=== PATIENT | female | born 1950 | race Caucasian/White ===

== ENCOUNTER 2017-06-19 11:37 | Inpatient (IN) | payer MEDICARE ==
[2017-06-19] MEDS ORDERED: IPRATROPIUM-ALBUTEROL 3 ML NEB INHALATION STA (11:59)
[2017-06-19 12:25] LABS: Basophils % (A) 1 %; Eosinophils # (A) 0.1 k/uL (0-0.7); Eosinophils % (A) 1 %; HGB 19.1 gm/dL (11.4-16.0); Lymphocytes # (A) 1.9 k/uL (1.0-4.8); Lymphocytes % (A) 25 %; MCH 30.7 pg (25.0-35.0); MCHC 33.1 g/dL (31.0-37.0); MCV 92.8 fL (80.0-100.0); Mean Platelet Volume 7.2; Monocytes # (A) 0.6 k/uL (0-1.0); Monocytes % (A) 8 %; Neutrophils # (A) 4.8 k/uL (1.3-7.7); Neutrophils % (A) 64 %; Platelet Count 227 k/uL (150-450); RBC 6.21 m/uL (3.80-5.40); RDW 14.2 % (11.5-15.5); WBC 7.5 k/uL (3.8-10.6)
[2017-06-19 12:29] LABS: HCT 57.6 % (34.0-46.0)
[2017-06-19 12:33] LABS: ALT 188 U/L (9-52); AST 133 U/L (14-36); Albumin 4.2 g/dL (3.5-5.0); Alkaline Phosphatase 99 U/L (38-126); Anion Gap 16 mmol/L; Blood Urea Nitrogen 18 mg/dL (7-17); Calcium 10.2 mg/dL (8.4-10.2); Carbon Dioxide 22 mmol/L (22-30); Chloride 108 mmol/L (98-107); Glucose 95 mg/dL (74-99); Magnesium 2.1 mg/dL (1.6-2.3); Potassium 4.1 mmol/L (3.5-5.1); Sodium 146 mmol/L (137-145); Total Protein 7.3 g/dL (6.3-8.2)
--- NOTE | 2017-06-19 12:33 | ED ---
General Adult HPI - General Chief complaint: Shortness of Breath Stated complaint: FAIZA Time Seen by Provider: 06/19/17 11:45 Source: patient, RN notes reviewed Mode of arrival: wheelchair Limitations: no limitations - History of Present Illness Initial comments: This is a 66-year-old female who presents emergency Department complaining of shortness of breath. Patient states she's been having an issue or shortness of breath since March. She was treated for bronchitis back then. Patient states a week ago she started feeling considerably more short of breath so she went to the emergency department and is followed up with her physician the medicines including an antibiotic and steroid have not seemed to help her at all. Patient states she continues to be short of breath he continues to cough. Patient denies any chest pain palpitations or chest heaviness. Patient denies any fevers or chills. Patient denies abdominal pain patient denies headache patient denies numbness weakness. Patient denies lightheadedness dizziness or near syncopal episode. Patient denies any calf pain or leg swelling - Related Data Home Medications Medication Instructions Recorded Confirmed Azithromycin [Zithromax Z-pack] See Taper PO DIRECTED 06/19/17 06/19/17 Losartan/Hydrochlorothiazide 1 tab PO DAILY 06/19/17 06/19/17 [Hyzaar 50-12.5 Tablet] predniSONE 50 mg PO DAILY 06/19/17 06/19/17 Allergies Allergy/AdvReac Type Severity Reaction Status Date / Time montelukast [From Singulair] Allergy Diarrhea Verified 06/19/17 12:08 acetaminophen [From Tylenol] AdvReac Abdominal Verified 06/19/17 12:08 Pain amoxicillin AdvReac Unknown Verified 06/19/17 12:08 Review of Systems ROS Statement: Those systems with pertinent positive or pertinent negative responses have been documented in the HPI. ROS Other: All systems not noted in ROS Statement are negative. Past Medical History Past Medical History: Hypertension Additional Past Medical History / Comment(s): bronchitis History of Any Multi-Drug Resistant Organisms: None Reported Past Surgical History: Joint Replacement Additional Past Surgical History / Comment(s): 4 hip replacements brain anerysm Past Psychological History: No Psychological Hx Reported Smoking Status: Never smoker Past Alcohol Use History: None Reported Past Drug Use History: None Reported General Exam - General Exam Comments Initial Comments: GENERAL: Patient is well-developed and well-nourished. Patient is nontoxic and well- hydrated and is in mild distress. ENT: Neck is soft and supple. No significant lymphadenopathy is noted. Oropharynx is clear. Moist mucous membranes. Neck has full range of motion without eliciting any pain. EYES: The sclera were anicteric and conjunctiva were pink and moist. Extraocular movements were intact and pupils were equal round and reactive to light. Eyelids were unremarkable. PULMONARY: Patient has crackles in the right base. CARDIOVASCULAR: There is a regular rate and rhythm without any murmurs gallops or rubs. ABDOMEN: Soft and nontender with normal bowel sounds. No palpable organomegaly was noted. There is no palpable pulsatile mass. SKIN: Skin is clear with no lesions or rashes and otherwise unremarkable. NEUROLOGIC: Patient is alert and oriented x3. Cranial nerves II through XII are grossly intact. Motor and sensory are also intact. Normal speech, volume and content. Symmetrical smile. MUSCULOSKELETAL: Normal extremities with adequate strength and full range of motion. No lower extremity swelling or edema. No calf tenderness. LYMPHATICS: No significant lymphadenopathy is noted PSYCHIATRIC: Normal psychiatric evaluation. Normal interpersonal interactions appears functionally intact in deals appropriately with others. No signs of depression. No signs of anxiety. Limitations: no limitations Course Vital Signs 06/19/17 06/19/17 06/19/17 11:44 12:33 12:42 Temperature 97.5 F L Pulse Rate 102 H 109 H 89 Respiratory 18 Rate Blood Pressure 176/82 O2 Sat by Pulse 97 Oximetry 06/19/17 12:58 Temperature Pulse Rate 95 Respiratory 18 Rate Blood Pressure 175/87 O2 Sat by Pulse 97 Oximetry Medical Decision Making - Medical Decision Making EKG shows sinus tachycardia at 102 bpm OK interval 246 QRS is 84 QT interval 336 QTC is 437. Patient's EKG shows some ST segment depression in leads 1 to aVL as well as precordial leads V5 and V6. Those leads also has T-wave inversions Patient's CT of the chest shows congestive heart failure. Patient got Lasix Nitropaste in the emergency department. I spoke with Dr. Marianne Beranl agreed to admit the patient admitted the patient wrote admitting orders and consult cardiology. I continued Lasix Nitropaste on the floor. - Lab Data Result diagrams: 06/19/17 12:10 06/19/17 12:10 Lab Results 06/19/17 06/19/17 06/19/17 Range/Units 12:10 12:10 12:10 WBC 7.5 (3.8-10.6) k/uL RBC 6.21 H (3.80-5.40) m/uL Hgb 19.1 H (11.4-16.0) gm/dL Hct 57.6 H (34.0-46.0) % MCV 92.8 (80.0-100.0) fL MCH 30.7 (25.0-35.0) pg MCHC 33.1 (31.0-37.0) g/dL RDW 14.2 (11.5-15.5) % Plt Count 227 (150-450) k/uL Neutrophils % 64 % Lymphocytes % 25 % Monocytes % 8 % Eosinophils % 1 % Basophils % 1 % Neutrophils # 4.8 (1.3-7.7) k/uL Lymphocytes # 1.9 (1.0-4.8) k/uL Monocytes # 0.6 (0-1.0) k/uL Eosinophils # 0.1 (0-0.7) k/uL Basophils # 0.0 (0-0.2) k/uL PT (9.0-12.0) sec INR (<1.2) APTT (22.0-30.0) sec D-Dimer (<0.60) mg/L FEU Sodium 146 H (137-145) mmol/L Potassium 4.1 (3.5-5.1) mmol/L Chloride 108 H (98-107) mmol/L Carbon Dioxide 22 (22-30) mmol/L Anion Gap 16 mmol/L BUN 18 H (7-17) mg/dL Creatinine 0.62 (0.52-1.04) mg/dL Est GFR (CKD-EPI)AfAm >90 (>60 ml/min/1.73 sqM) Est GFR (CKD-EPI)NonAf >90 (>60 ml/min/1.73 sqM) Glucose 95 (74-99) mg/dL Calcium 10.2 (8.4-10.2) mg/dL Magnesium 2.1 (1.6-2.3) mg/dL Total Bilirubin 1.0 (0.2-1.3) mg/dL AST 133 H (14-36) U/L ALT 188 H (9-52) U/L Alkaline Phosphatase 99 (38-126) U/L Total Creatine Kinase 30 (30-135) U/L CK-MB (CK-2) 1.3 (0.0-2.4) ng/mL CK-MB (CK-2) Rel Index 4.3 Troponin I 0.015 (0.000-0.034) ng/mL NT-Pro-B Natriuret Pep pg/mL Total Protein 7.3 (6.3-8.2) g/dL Albumin 4.2 (3.5-5.0) g/dL 06/19/17 06/19/17 Range/Units 12:10 12:55 WBC (3.8-10.6) k/uL RBC (3.80-5.40) m/uL Hgb (11.4-16.0) gm/dL Hct (34.0-46.0) % MCV (80.0-100.0) fL MCH (25.0-35.0) pg MCHC (31.0-37.0) g/dL RDW (11.5-15.5) % Plt Count (150-450) k/uL Neutrophils % % Lymphocytes % % Monocytes % % Eosinophils % % Basophils % % Neutrophils # (1.3-7.7) k/uL Lymphocytes # (1.0-4.8) k/uL Monocytes # (0-1.0) k/uL Eosinophils # (0-0.7) k/uL Basophils # (0-0.2) k/uL PT 11.5 (9.0-12.0) sec INR 1.2 H (<1.2) APTT 22.0 (22.0-30.0) sec D-Dimer 1.20 H (<0.60) mg/L FEU Sodium (137-145) mmol/L Potassium (3.5-5.1) mmol/L Chloride (98-107) mmol/L Carbon Dioxide (22-30) mmol/L Anion Gap mmol/L BUN (7-17) mg/dL Creatinine (0.52-1.04) mg/dL Est GFR (CKD-EPI)AfAm (>60 ml/min/1.73 sqM) Est GFR (CKD-EPI)NonAf (>60 ml/min/1.73 sqM) Glucose (74-99) mg/dL Calcium (8.4-10.2) mg/dL Magnesium (1.6-2.3) mg/dL Total Bilirubin (0.2-1.3) mg/dL AST (14-36) U/L ALT (9-52) U/L Alkaline Phosphatase (38-126) U/L Total Creatine Kinase (30-135) U/L CK-MB (CK-2) (0.0-2.4) ng/mL CK-MB (CK-2) Rel Index Troponin I (0.000-0.034) ng/mL NT-Pro-B Natriuret Pep 4910 pg/mL Total Protein (6.3-8.2) g/dL Albumin (3.5-5.0) g/dL Critical Care Time Critical Care Time: Yes Total Critical Care Time: 35 Disposition Clinical Impression: Acute pulmonary edema Disposition: ADMITTED IP TO THIS HOSP Referrals: Compa Keita MD [Primary Care Provider] - 1-2 days Time of Disposition: 14:52
[2017-06-19 12:56] LABS: Troponin I 0.015 ng/mL (0.000-0.034)
--- NOTE | 2017-06-19 13:05 | XR ---
EXAMINATION TYPE: XR chest 2V DATE OF EXAM: 06/19/2017 COMPARISON: NONE TECHNIQUE: PA and lateral views submitted. HISTORY: Difficulty breathing FINDINGS: The lungs are clear and there is no pneumothorax, pleural effusion, or focal pneumonia. There is a coarsened interstitium with cardiomegaly and atherosclerotic change aorta. Sclerotic density overlyin g the proximal diaphysis humerus. Diffuse osteopenia. Hypertrophic and degenerative change of the spi ne noted. IMPRESSION: 1. Cardia megaly with diffuse interstitial process. Correlate for chronic interstitial pulmonary fibr osis. Superimposed interstitial pneumonitis or venous congestion in the differential diagnosis..
[2017-06-19 13:07] LABS: Creatine Kinase MB 1.3 ng/mL (0.0-2.4)
[2017-06-19 13:26] LABS: D-Dimer 1.2 mg/L FEU (<0.60); INR 1.2 (<1.2); Prothrombin Time 11.5 sec (9.0-12.0)
[2017-06-19] MEDS ORDERED: RX INFO: IV CONTRAST WAS GIVEN 1 EACH MISC MISCELLANE PRN (13:38)
--- NOTE | 2017-06-19 14:20 | CT ---
EXAMINATION TYPE: CT chest angio for PE DATE OF EXAM: 06/19/2017 COMPARISON: Chest x-ray same date HISTORY: Patient complains of difficulty breathing. CT DLP: 410.6 mGycm Automated exposure control for dose reduction was used. CONTRAST: CT Chest for pulmonary embolism performed with with IV Contrast, patient injected with 100 mL of Isov ue 370. FINDINGS: There is artifact due to patient's high density intravenous contrast injection obscuring th e upper mediastinum. LUNGS: Groundglass opacity is present in the perihilar locations. There are thickened septal bands, i nterlobular septal lines present MEDIASTINUM: There is satisfactory enhancement of the pulmonary artery but not small segmental branch es, there is no CT evidence for pulmonary embolism. There are no greater than 1 cm hilar or mediasti nal lymph nodes. No pericardial effusion is seen. AORTA: Ascending aorta measures approximately 4.8 cm, proximal descending aorta 3.3 cm. Pulmonary ar ziggy is dilated at 3.7 cm. OTHER: The heart is enlarged. Left ventricle appears enlarged as compared to the right, left atrium enlarged as compared to the right. Reflux of contrast noted into the inferior vena cava and hepatic v eins. There is a small hiatal hernia. IMPRESSION: Findings likely represent congestive heart failure. Poor ejection fraction likely etiology due to poo r opacification of segmental branches of the pulmonary arteries. Consider pulmonary artery hypertensi on. Asymmetric appearance of the heart, consider echocardiography, cardiology consult
[2017-06-19] MEDS ORDERED: FUROSEMIDE 10 MG/ML 2 ML VIAL IV STA (14:46)
[2017-06-19] MEDS: NITROGLYCERIN OINT 1 INCH/GM PACKET TOPICAL SCH ×2 (18:19→22:33)
[2017-06-19] MEDS: FUROSEMIDE 10 MG/ML 4 ML VIAL IV SCH (20:38)
[2017-06-20 06:40] LABS: Basophils # (A) 0.1 k/uL (0-0.2); Basophils % (A) 1 %; Eosinophils # (A) 0.1 k/uL (0-0.7); Eosinophils % (A) 2 %; HGB 18.6 gm/dL (11.4-16.0); Lymphocytes # (A) 1.6 k/uL (1.0-4.8); Lymphocytes % (A) 27 %; MCH 29.7 pg (25.0-35.0); MCHC 31.9 g/dL (31.0-37.0); Mean Platelet Volume 7.1; Monocytes # (A) 0.5 k/uL (0-1.0); Monocytes % (A) 9 %; Neutrophils # (A) 3.4 k/uL (1.3-7.7); Neutrophils % (A) 59 %; Platelet Count 215 k/uL (150-450); RBC 6.27 m/uL (3.80-5.40); RDW 14.1 % (11.5-15.5); WBC 5.8 k/uL (3.8-10.6)
[2017-06-20 06:43] LABS: ALT 132 U/L (9-52); AST 55 U/L (14-36); Albumin 3.7 g/dL (3.5-5.0); Alkaline Phosphatase 80 U/L (38-126); Anion Gap 12 mmol/L; Blood Urea Nitrogen 22 mg/dL (7-17); Calcium 9.3 mg/dL (8.4-10.2); Carbon Dioxide 29 mmol/L (22-30); Chloride 103 mmol/L (98-107); Glucose 81 mg/dL (74-99); Potassium 3.6 mmol/L (3.5-5.1); Sodium 144 mmol/L (137-145); Total Bilirubin 0.7 mg/dL (0.2-1.3); Total Protein 6.4 g/dL (6.3-8.2)
[2017-06-20 06:45] LABS: HCT 58.3 % (34.0-46.0)
[2017-06-20 06:55] VITALS: RESP 18
[2017-06-20] MEDS: FUROSEMIDE 10 MG/ML 4 ML VIAL IV SCH ×2 (08:12→20:21)
[2017-06-20] MEDS: LOSARTAN-HCTZ 50-12.5 MG 1 EACH TAB PO SCH (08:12)
[2017-06-20] MEDS: NITROGLYCERIN OINT 1 INCH/GM PACKET TOPICAL SCH ×3 (08:12→16:09)
[2017-06-20] MEDS ORDERED: IBUPROFEN 200 MG TAB PO PRN (10:19)
[2017-06-20 11:05] VITALS: BMI 37.0
--- NOTE | 2017-06-20 14:17 | P.HPIM ---
History of Present Illness H&P Date: 06/20/17 Chief Complaint: Shortness of breath This is a 66-year-old female patient of Dr. 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 Patient gives history that she has had trouble with breathing since March when she was treated for bronchitis. Recently shortness of breath worsened and the last 2 days were really rough. She denies ever having history of COPD, asthma and has not seen a lung doctor before. She denies having any chest pain sweats, fever or chills. She does visit her son 2-3 times a week and use a wood stove. She has never been diagnosed with heart failure in the past. Patient presents to [facility] [place] and was found to be afebrile, normal white count, hgb 19.1, creatinine 0.62. Troponin 0.015, D dimer 1.2, pro-BNP 4910. CTA of the chest revealed heart failure. Poor ejection fraction likely etiology due to poor opacification of segmental branches of the pulmonary arteries. Consider pulmonary artery hypertension. Asymmetric appearance of the heart. Chest x-ray reveals cardiomegaly with diffuse interstitial process. Correlate for interstitial pulmonary fibrosis. Superimposed interstitial pneumonitis or venous congestion in the differential. Patient was given lasix 20 mg IV, duoneb treatment and continued on IV Lasix and cardiology consult requested echocardiogram ordered. Review of Systems All systems: negative Constitutional: Reports fatigue, Reports weight gain, Denies chills, Denies fever Eyes: denies blurred vision, denies pain Ears, nose, mouth and throat: Denies headache, Denies sore throat Cardiovascular: Reports decreased exercise tolerance, Reports dyspnea on exertion, Reports leg edema, Denies chest pain, Denies edema, Denies lightheadedness, Denies shortness of breath, Denies syncope Respiratory: Reports cough, Reports dyspnea, Denies cough with sputum, Denies excessive sputum, Denies hemoptysis, Denies home oxygen Gastrointestinal: Denies abdominal pain, Denies diarrhea, Denies nausea, Denies vomiting Genitourinary: Denies dysuria, Denies hematuria Musculoskeletal: Denies myalgias Integumentary: Denies pruritus, Denies rash Neurological: Denies numbness, Denies weakness Psychiatric: Denies anxiety, Denies depression Endocrine: Denies fatigue, Denies weight change Past Medical History Past Medical History: Hypertension Additional Past Medical History / Comment(s): 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 No illicit drug use. No alcohol use. Past Drug Use History: None Reported - Past Family History Father Additional Family Medical History / Comment(s): Father healthy with no major medical problems. Mother Additional Family Medical History / Comment(s): Mother had cancer in 4 sites unknown primary. Brother(s) Additional Family Medical History / Comment(s): Patient's 1 brother diagnosed with colon cancer at age 15. One brother after having her bowel surgery due to a blood clot. Patient has one son with genetic mutations for familial polycythemia. Medications and Allergies Home Medications Medication Instructions Recorded Confirmed Type Azithromycin [Zithromax Z-pack] See Taper PO DIRECTED 06/19/17 06/19/17 History Losartan/Hydrochlorothiazide 1 tab PO DAILY 06/19/17 06/19/17 History [Hyzaar 50-12.5 Tablet] predniSONE 50 mg PO DAILY 06/19/17 06/19/17 History Allergies Allergy/AdvReac Type Severity Reaction Status Date / Time montelukast [From Singulair] Allergy Diarrhea Verified 06/19/17 12:08 acetaminophen [From Tylenol] AdvReac Abdominal Verified 06/19/17 12:08 Pain amoxicillin AdvReac Unknown Verified 06/19/17 12:08 Physical Exam Vitals: Vital Signs Temp Pulse Pulse Resp BP BP Pulse Ox 06/20/17 07:40 97.6 F 79 18 137/85 97 06/20/17 04:25 97.8 F 77 18 144/71 95 06/20/17 04:15 88 17 06/20/17 00:00 97.2 F L 88 17 161/81 95 06/19/17 20:00 97.9 F 84 18 140/69 99 06/19/17 16:10 98.7 F 99 18 163/87 97 06/19/17 15:00 97.7 F 83 18 156/85 99 06/19/17 12:58 95 18 175/87 97 06/19/17 12:42 89 06/19/17 12:33 109 H 06/19/17 11:44 97.5 F L 102 H 18 176/82 97 Intake and Output 06/19/17 06/20/17 06/20/17 22:59 06:59 14:59 Intake Total 240 360 Output Total 1700 Balance 240 -1700 360 Intake: Oral 240 360 Output: Urine 1700 Other: Voiding Method Toilet Toilet Weight 81.647 kg 80.3 kg Gen: This is a 66-year-old obese female. She is sitting up in a chair at the bedside and appears to be comfortable. HEENT: Head is atraumatic, normocephalic. Pupils equal, round. Sclerae is anicteric. NECK: Supple. No JVD. No lymphadenopathy. No thyromegaly. LUNGS: Crackles in the bases and diminished No intercostal retractions. HEART: Regular rate and rhythm. Systolic murmur. ABDOMEN: Soft. Bowel sounds are present. No masses. No tenderness. EXTREMITIES: 1+ pedal edema. No calf tenderness. Dorsalis pedis +2. NEUROLOGICAL: Patient is awake, alert and oriented x3. Cranial nerves 2 through 12 are grossly intact. Results CBC & Chem 7: 06/20/17 05:46 06/21/17 06:23 Labs: Abnormal Lab Results - Last 24 Hours (Table) 06/19/17 06/19/17 06/19/17 Range/Units 12:10 12:10 12:55 RBC 6.21 H (3.80-5.40) m/uL Hgb 19.1 H (11.4-16.0) gm/dL Hct 57.6 H (34.0-46.0) % INR 1.2 H (<1.2) D-Dimer 1.20 H (<0.60) mg/L FEU Sodium 146 H (137-145) mmol/L Chloride 108 H (98-107) mmol/L BUN 18 H (7-17) mg/dL AST 133 H (14-36) U/L ALT 188 H (9-52) U/L 06/20/17 06/20/17 Range/Units 05:46 05:46 RBC 6.27 H (3.80-5.40) m/uL Hgb 18.6 H (11.4-16.0) gm/dL Hct 58.3 H (34.0-46.0) % INR (<1.2) D-Dimer (<0.60) mg/L FEU Sodium (137-145) mmol/L Chloride (98-107) mmol/L BUN 22 H (7-17) mg/dL AST 55 H (14-36) U/L ALT 132 H (9-52) U/L Thrombosis Risk Factor Assmnt - DVT/VTE Prophylaxis DVT/VTE Prophylaxis: Pharmacologic Prophylaxis ordered Assessment and Plan Plan: 1. Acute pulmonary edema with most likely underlying acute diastolic heart failure. Patient denies any history of coronary artery disease. Echocardiogram has been ordered. Cardiology consult. Patient is currently on Lasix 40 mg IV every 12 hours. Daily weights and I&O's. 2. Hypertension. Continue losartan hydrochlorothiazide 1 daily. 3. Recent treatment for bronchitis on Z-Steve and prednisone taper. 4. 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 5. DVT prophylaxis. Lovenox. 6. Gastrointestinal prophylaxis. Pepcid. Patient will be admitted to the hospital for a minimum of 2 night stay. Discharge plan: Most likely return home Impression and plan of care have been directed as dictated by the signing physician. Anna Marie Jernigan nurse practitioner acting as scribe for signing physician.
--- NOTE | 2017-06-20 15:25 | P.CRDCN ---
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 She presents to the hospital with symptoms of significantly worsening shortness of breath, especially over the past 2 days. She states that she had a bronchitis in March and since then has continued to be short of breath. Her chest x-ray on presentation here showed cardiomegaly with diffuse interstitial process. Correlation for chronic interstitial pulmonary fibrosis suggested. Superimposed interstitial pneumonitis or congestion in the differential diagnosis. EKG on arrival here showed a sinus tachycardia with nonspecific ST- T wave changes in the lateral leads. The pressure 144/70, heart rate in the 80s , 96% on room air. Afebrile. Laboratory data, white blood cell count 5.8, hemoglobin 18.6, platelet count 2:15. D-dimer 1.2, sodium 144, potassium 3.6, BUN 22, creatinine 0.6. AST on arrival 133 ALT 188, this morning 55 and 132. Troponin 0.015, BNP level 4910. Patient was initiated on IV Lasix in the emergency room, her weight is down 1 kg from admission. CTA of the chest was performed which was negative for pulmonary embolism, ascending aorta measures approximately 4.8 cm, proximal descending aorta 3.3 cm, findings likely representing congestive heart failure. At the time of my examination, patient continues to feel short of breath, however she states she is mildly improved from admission here. 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 No illicit drug use. No alcohol use. Past Drug Use History: None Reported - Past Family History Father Additional Family Medical History / Comment(s): Father healthy with no major medical problems. Mother Additional Family Medical History / Comment(s): Mother had cancer in 4 sites unknown primary. Brother(s) Additional Family Medical History / Comment(s): Patient's 1 brother diagnosed with colon cancer at age 15. One brother after having her bowel surgery due to a blood clot. Patient has one son with genetic mutations for familial polycythemia. Medications and Allergies Home Medications Medication Instructions Recorded Confirmed Type Azithromycin [Zithromax Z-pack] See Taper PO DIRECTED 06/19/17 06/19/17 History Losartan/Hydrochlorothiazide 1 tab PO DAILY 06/19/17 06/19/17 History [Hyzaar 50-12.5 Tablet] predniSONE 50 mg PO DAILY 06/19/17 06/19/17 History Allergies Allergy/AdvReac Type Severity Reaction Status Date / Time montelukast [From Singulair] Allergy Diarrhea Verified 06/19/17 12:08 acetaminophen [From Tylenol] AdvReac Abdominal Verified 06/19/17 12:08 Pain amoxicillin AdvReac Unknown Verified 06/19/17 12:08 Physical Exam Vitals: Vital Signs Temp Pulse Pulse Resp BP BP Pulse Ox 06/20/17 11:34 18 06/20/17 11:33 97.5 F L 82 18 145/74 96 06/20/17 09:54 97 06/20/17 08:00 18 06/20/17 07:40 97.6 F 79 18 137/85 97 06/20/17 04:25 97.8 F 77 18 144/71 95 06/20/17 04:15 88 17 06/20/17 00:00 97.2 F L 88 17 161/81 95 06/19/17 20:00 97.9 F 84 18 140/69 99 06/19/17 16:10 98.7 F 99 18 163/87 97 Intake and Output 06/20/17 06/20/17 06/20/17 06:59 14:59 22:59 Intake Total 360 Output Total 1700 900 Balance -1700 -540 Intake: Oral 360 Output: Urine 1700 900 Other: Voiding Method Toilet Weight 80.3 kg 80.3 kg PHYSICAL EXAMINATION: HEENT: Head is atraumatic, normocephalic. Pupils equal, round. Neck is supple. There is elevated jugular venous pressure. HEART EXAMINATION: Heart S1 S2 1 systolic murmur is heard. CHEST EXAMINATION: Lungs reveal crackles bilaterally with diminished air entry to the bases ABDOMEN: Soft, nontender. Bowel sounds are heard. No organomegaly noted. EXTREMITIES: 2+ peripheral pulses with trace evidence of peripheral edema and no calf tenderness noted. NEUROLOGIC patient is awake, alert and oriented -3. . Results 06/20/17 05:46 06/20/17 05:46 Cardiac Enzymes 06/20/17 Range/Units 05:46 AST 55 H (14-36) U/L CBC 06/20/17 Range/Units 05:46 WBC 5.8 (3.8-10.6) k/uL RBC 6.27 H (3.80-5.40) m/uL Hgb 18.6 H (11.4-16.0) gm/dL Hct 58.3 H (34.0-46.0) % Plt Count 215 (150-450) k/uL Comprehensive Metabolic Panel 06/20/17 Range/Units 05:46 Sodium 144 (137-145) mmol/L Potassium 3.6 (3.5-5.1) mmol/L Chloride 103 (98-107) mmol/L Carbon Dioxide 29 (22-30) mmol/L BUN 22 H (7-17) mg/dL Creatinine 0.67 (0.52-1.04) mg/dL Glucose 81 (74-99) mg/dL Calcium 9.3 (8.4-10.2) mg/dL AST 55 H (14-36) U/L ALT 132 H (9-52) U/L Alkaline Phosphatase 80 (38-126) U/L Total Protein 6.4 (6.3-8.2) g/dL Albumin 3.7 (3.5-5.0) g/dL Current Medications Generic Name Dose Route Start Last Admin Trade Name Freq PRN Reason Stop Dose Admin Enoxaparin Sodium 40 mg 06/21/17 09:00 Lovenox SQ DAILY TRINO Famotidine 20 mg 06/21/17 09:00 Pepcid PO DAILY TRINO Furosemide 40 mg 06/19/17 21:00 06/20/17 08:12 Lasix IV 40 mg Q12HR TRINO Administration HCTZ/Losartan Potassium 1 each 06/20/17 09:00 06/20/17 08:12 Hyzaar 50-12.5 PO 1 each DAILY TRINO Administration Ibuprofen 200 mg 06/20/17 10:19 06/20/17 11:29 Advil PO 200 mg Q6HR PRN Administration Mild Pain Miscellaneous Information 1 each 06/19/17 13:38 06/19/17 14:28 Rx Info: Iv Contrast Was Given MISCELLANE 06/21/17 13:38 1 each DAILY PRN Administration Per Protocol Nitroglycerin 1 inch 06/19/17 18:00 06/20/17 11:59 Nitro-Bid Oint TOPICAL Not Given QID TRINO Intake and Output 06/20/17 06/20/17 06/20/17 06:59 14:59 22:59 Intake Total 360 Output Total 1700 900 Balance -1700 -540 Intake: Oral 360 Output: Urine 1700 900 Other: Voiding Method Toilet Weight 80.3 kg 80.3 kg Patient Weight 06/21/17 06:59 Weight 80.3 kg 06/20/17 05:46 06/20/17 05:46 EKG Interpretations (text) EKG shows a sinus tachycardia with ST-T wave changes in the lateral leads. Assessment and Plan Plan: Assessment and plan #1 congestive heart failure, LV function unknown at this time. Patient is currently on IV Lasix. #2 hypertension #3 familial polycythemia secondary to see [place] hemoglobin gene mutation #4 scoliosis #5 recent bronchitis Plan From cardiology's perspective, we'll recommend to continue current dose of IV Lasix, continue to monitor intake and output along with daily weights. We will also obtain an echocardiogram with Doppler study. Initiate low-dose beta montserrat. Further recommendations to follow. DNP note has been reviewed, I agree with a documented findings and plan of care. Patient was seen and examined.
[2017-06-20] MEDS: METOPROLOL SUCCINATE (ER) 25 MG TAB.ER.24H PO SCH (16:50)
--- NOTE | 2017-06-20 17:21 | ECHOF ---
Referral Reason:LVF MEASUREMENTS -------- HEIGHT: 152.4 cm WEIGHT: 80.3 kg BP: 145/74 IVSd: 1.3 cm (0.6 - 1.1) LVIDd: 4.7 cm (3.9 - 5.3) LVPWd: 1.7 cm (0.6 - 1.1) IVSs: 1.3 cm LVIDs: 4.0 cm LVPWs: 1.8 cm LA Diam: 4.0 cm (2.7 - 3.8) LAESV Index (A-L): 73.18 ml/m Ao Diam: 3.7 cm (2.0 - 3.7) LA Diam: 5.0 cm (2.7 - 3.8) AV Cusp: 1.7 cm (1.5 - 2.6) EPSS: 1.2 cm MV E David: 0.64 m/s MV DecT: 175 ms MV A David: 0.41 m/s MV E/A Ratio: 1.56 AV maxP.25 mmHg AV meanP.45 mmHg AR PHT: 375 ms MV EF SLOPE: 82.90 mm/s (70 - 150) MV EXCURSION: 16.66 mm (> 18.000) FINDINGS -------- Sinus rhythm. This was a technically good study. The left ventricular size is normal. There is mild concentric left ventricular hypertrophy. Overa ll left ventricular systolic function is mild-moderately impaired with, an EF between 40 - 45 %. The right ventricle is normal in size. LA is severely dilated >40 ml/m2 The right atrial size is normal. There is mild aortic valve sclerosis. There is nvsy-ms-bueywril aortic regurgitation. There is mi ld aortic stenosis present. Peak/mean gradient across the Aortic Valve is 17.25mmHg / 10.45mmHg. Mild mitral annular calcification present. Mild mitral regurgitation is present. Mild tricuspid regurgitation present. There is no evidence of pulmonary hypertension. The right v entricular systolic pressure, as measured by Doppler, is {RVSP}. There is no pulmonic regurgitation present. Aortic Root is mildly dilated measures 3.7cm. There is no pericardial effusion. CONCLUSIONS -------- 1. The left ventricular size is normal. 2. There is mild concentric left ventricular hypertrophy. 3. Overall left ventricular systolic function is mild-moderately impaired with, an EF between 40 - 45 %. 4. LA is severely dilated >40 ml/m2 5. There is mild aortic valve sclerosis. 6. There is uzid-nx-trxstkpd aortic regurgitation. 7. There is mild aortic stenosis present. 8. Peak/mean gradient across the Aortic Valve is 17.25mmHg / 10.45mmHg. 9. Mild mitral annular calcification present. 10. Mild mitral regurgitation is present. 11. Mild tricuspid regurgitation present. 12. There is no evidence of pulmonary hypertension. 13. The right ventricular systolic pressure, as measured by Doppler, is {RVSP}. 14. There is no pulmonic regurgitation present. 15. Aortic Root is mildly dilated measures 3.7cm. 16. There is no pericardial effusion. AIRPLANE ENGINEER: Kristie Floyd RDCS
[2017-06-21 06:55] LABS: Anion Gap 13 mmol/L; Blood Urea Nitrogen 35 mg/dL (7-17); Calcium 9.8 mg/dL (8.4-10.2); Carbon Dioxide 27 mmol/L (22-30); Chloride 101 mmol/L (98-107); Glucose 91 mg/dL (74-99); Potassium 3.8 mmol/L (3.5-5.1); Sodium 141 mmol/L (137-145)
[2017-06-21] MEDS: NITROGLYCERIN OINT 1 INCH/GM PACKET TOPICAL SCH ×2 (07:33→11:36)
[2017-06-21] MEDS: METOPROLOL SUCCINATE (ER) 25 MG TAB.ER.24H PO SCH (08:02)
[2017-06-21] MEDS: LOSARTAN-HCTZ 50-12.5 MG 1 EACH TAB PO SCH (08:02)
[2017-06-21] MEDS: FUROSEMIDE 10 MG/ML 4 ML VIAL IV SCH (08:03)
[2017-06-21 08:10] VITALS: TEMP 96.8
[2017-06-21] MEDS ORDERED: ENOXAPARIN 40 MG/0.4 ML SYRINGE SQ SCH (09:00)
[2017-06-21] MEDS ORDERED: FAMOTIDINE 20 MG TAB PO SCH (09:00)
[2017-06-21 11:36] VITALS: BP 120/67; PULSE 77
--- NOTE | 2017-06-21 12:13 | P.PN ---
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 She presents to the hospital with symptoms of significantly worsening shortness of breath, especially over the past 2 days. She states that she had a bronchitis in March and since then has continued to be short of breath. Her chest x-ray on presentation here showed cardiomegaly with diffuse interstitial process. Correlation for chronic interstitial pulmonary fibrosis suggested. Superimposed interstitial pneumonitis or congestion in the differential diagnosis. EKG on arrival here showed a sinus tachycardia with nonspecific ST- T wave changes in the lateral leads. The pressure 144/70, heart rate in the 80s , 96% on room air. Afebrile. Laboratory data, white blood cell count 5.8, hemoglobin 18.6, platelet count 2:15. D-dimer 1.2, sodium 144, potassium 3.6, BUN 22, creatinine 0.6. AST on arrival 133 ALT 188, this morning 55 and 132. Troponin 0.015, BNP level 4910. Patient was initiated on IV Lasix in the emergency room, her weight is down 1 kg from admission. CTA of the chest was performed which was negative for pulmonary embolism, ascending aorta measures approximately 4.8 cm, proximal descending aorta 3.3 cm, findings likely representing congestive heart failure. At the time of my examination, patient continues to feel short of breath, however she states she is mildly improved from admission here. 06/21/2017 Patient was seen and examined this morning, diuresed well on IV Lasix, weight is down 2 kg today. Breathing is improving. Echocardiogram with Doppler study was performed which revealed an ejection fraction of 40-45%, LA a severely dilated, mild to moderate aortic regurg. Blood pressure 120/60 with a heart rate in the 70s. Sodium 141, potassium 3.8, BUN 35, creatinine 0.7. Objective - Vital Signs Vital signs: Vital Signs Temp 96.8 F L 06/21/17 11:36 Pulse 77 06/21/17 11:36 Resp 18 06/21/17 11:36 BP 120/67 06/21/17 11:36 Pulse Ox 97 06/21/17 11:36 Intake & Output 06/20/17 06/21/17 06/21/17 18:59 06:59 18:59 Intake Total 360 360 360 Output Total 900 1300 Balance -540 -940 360 Weight 80.3 kg 78.1 kg Intake: Oral 360 360 360 Output: Urine 900 1300 Other: Voiding Method Toilet Toilet # Voids 4 1 - Exam PHYSICAL EXAMINATION: HEENT: Head is atraumatic, normocephalic. Pupils equal, round. Neck is supple. There is no elevated jugular venous pressure. HEART EXAMINATION: Heart S1 S2 1 systolic murmur is heard. CHEST EXAMINATION: Lungs reveal crackles bilaterally with improvement in air entry to the bases ABDOMEN: Soft, nontender. Bowel sounds are heard. No organomegaly noted. EXTREMITIES: 2+ peripheral pulses with trace evidence of peripheral edema and no calf tenderness noted. NEUROLOGIC patient is awake, alert and oriented -3. - Labs CBC & Chem 7: 06/20/17 05:46 06/21/17 06:23 Labs: Abnormal Lab Results - Last 24 Hours (Table) 06/21/17 Range/Units 06:23 BUN 35 H (7-17) mg/dL Microbiology - Last 24 Hours (Table) 06/19/17 12:10 Blood Culture - Preliminary Blood No Growth after 24 hours Assessment and Plan Plan: Assessment and plan #1 congestive heart failure, LV function unknown at this time. Patient is currently on IV Lasix. #2 hypertension #3 familial polycythemia secondary to [place] hemoglobin gene mutation #4 scoliosis #5 recent bronchitis Plan From cardiology's perspective, we'll recommend to continue current dose of IV Lasix, continue to monitor intake and output along with daily weights. Echocardiogram with Doppler study revealed an ejection fraction of 40-45%. We' ll discontinue the Advil. Continue losartan hydrochlorothiazide, continue metoprolol, discontinue Nitropaste. Add Aldactone 25 mg daily to her medication regime. Once the patient is stable from a heart failure perspective , as an outpatient she may need to be evaluated for underlying coronary artery disease. DNP note has been reviewed, I agree with a documented findings and plan of care. Patient was seen and examined.
[2017-06-21] MEDS ORDERED: SPIRONOLACTONE 25 MG TAB PO SCH (12:15)
--- NOTE | 2017-06-21 15:35 | P.DS ---
Providers Date of admission: 06/19/17 14:52 Expected date of discharge: 06/21/17 Attending physician: Augustina Lopes MD Consults: 06/20/17 12:26 Consult Physician Routine Consulting Provider: Zhao Rider Consult Reason/Comments: chf Do you want consulting provider notified?: Yes Primary care physician: [facility] Course: This is a 66-year-old female patient of Dr. Compa Keita with history of hypertension, familial polycythemia secondary to [place] hemoglobin gene mutation. Patient gives history that she has had trouble with breathing since March when she was treated for bronchitis. Recently shortness of breath worsened and the last 2 days were really rough. She denies ever having history of COPD, asthma and has not seen a lung doctor before. She denies having any chest pain sweats, fever or chills. She does visit her son 2-3 times a week and use a wood stove. She has never been diagnosed with heart failure in the past. Patient presents to [facility] emergency [facility] and was found to be afebrile, normal white count, hgb 19.1, creatinine 0.62. Troponin 0.015, D dimer 1.2, pro-BNP 4910. CTA of the chest revealed heart failure. Poor ejection fraction likely etiology due to poor opacification of segmental branches of the pulmonary arteries. Consider pulmonary artery hypertension. Asymmetric appearance of the heart. Chest x-ray reveals cardiomegaly with diffuse interstitial process. Correlate for interstitial pulmonary fibrosis. Superimposed interstitial pneumonitis or venous congestion in the differential. Patient was given lasix 20 mg IV, duoneb treatment and continued on IV Lasix and cardiology consult requested echocardiogram ordered. 06/21: Echocardiogram reveals EF of 40-45% with mild concentric left hypertrophy , moderate aortic regurgitation, mild aortic valve sclerosis, mild aortic stenosis, mild mitral regurgitation, mild tricuspid regurgitation, no pulmonary hypertension. Cardiology is following the patient. She is currently on Lasix 40 mg IV every 12 hours. Cardiology is also started her on metoprolol and today started Aldactone. Patient's lungs are clear. Pulse ox is 97% on room air. She has had weight loss of 3.5 kg. Patient will be discharged home today in stable condition. Discharge diagnoses: 1. Acute pulmonary edema with acute systolic heart failure. 2. Hypertension. 3. Recent treatment for bronchitis on Z-Steve and prednisone taper. 4. History of familial polycythemia secondary to [place] hemoglobin gene mutation, stable. Discharge plan: home Impression and plan of care have been directed as dictated by the signing physician. Anna Marie Jernigan nurse practitioner acting as scribe for signing physician. Patient Condition at Discharge: Good Plan - Discharge Summary New Discharge Prescriptions: New Furosemide [Lasix] 40 mg PO BID #60 tablet Metoprolol Succinate (ER) [Toprol XL] 25 mg PO DAILY #30 tab.er.24h Spironolactone [Aldactone] 25 mg PO DAILY #30 tab Losartan [Cozaar] 25 mg PO DAILY #30 tab Discontinued Losartan/Hydrochlorothiazide [Hyzaar 50-12.5 Tablet] 1 tab PO DAILY Azithromycin [Zithromax Z-pack] See Taper PO DIRECTED predniSONE 50 mg PO DAILY Discharge Medication List Furosemide [Lasix] 40 mg PO BID #60 tablet 06/21/17 [Rx] Losartan [Cozaar] 25 mg PO DAILY #30 tab 06/21/17 [Rx] Metoprolol Succinate (ER) [Toprol XL] 25 mg PO DAILY #30 tab.er.24h 06/21/17 [Rx ] Spironolactone [Aldactone] 25 mg PO DAILY #30 tab 06/21/17 [Rx] Follow up Appointment(s)/Referral(s): Zhao Rider MD [STAFF PHYSICIAN] - 1 Week Compa Keita MD [Primary Care Provider] - 1 Week Patient Instructions/Handouts: Heart Failure (DC) Discharge Disposition: HOME SELF-CARE
== END 2017-06-21 16:55 | disposition home or self-care (01) | DRG 293 ==
LOC: EC 11:37 → 6SEL 14:52
PROVIDERS: ADMIT Internal Medicine; ATTEND Internal Medicine
DX: I11.0 Hypertensive heart disease with heart failure (principal); J84.89 Other specified interstitial pulmonary diseases; J84.10 Pulmonary fibrosis, unspecified; D75.1 Secondary polycythemia; I08.3 Combined rheumatic disorders of mitral, aortic and tricuspid valves; D75.0 Familial erythrocytosis; I50.21 Acute systolic (congestive) heart failure; E78.5 Hyperlipidemia, unspecified; Z96.649 Presence of unspecified artificial hip joint; J40 Bronchitis, not specified as acute or chronic; Z80.0 Family history of malignant neoplasm of digestive organs; Z79.2 Long term (current) use of antibiotics; Z79.52 Long term (current) use of systemic steroids; Z79.899 Other long term (current) drug therapy; Z88.6 Allergy status to analgesic agent; Z88.1 Allergy status to other antibiotic agents; Z88.8 Allergy status to other drugs, medicaments and biological substances; M41.9 Scoliosis, unspecified
CPT/HCPCS: 36415; 71046; 71275; 80048; 80053; 82550; 82553; 83735; 83880; 84484; 85025; 85379; 85610; 85730; 87040; 93005; 93306; 94640; 94760; 96374; 99291

== ENCOUNTER 2021-12-09 17:04 | Emergency (ER) | payer MEDICARE ==
[2021-12-09 17:13] VITALS: RESP 18
[2021-12-09] MEDS ORDERED: MORPHINE SULFATE 4 MG/ML SYRINGE IM STA (17:14)
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
--- NOTE | 2021-12-09 18:06 | XR ---
PROCEDURE: XR pelvis AP view - 1V DATE AND TIME: 12/09/2021 5:42 PM CLINICAL INDICATION: PHH; fall TECHNIQUE: Department protocol COMPARISON: None FINDINGS: There is no fracture or malalignment. The bilateral orthopedic hardwares appear intact. The soft tissues are unremarkable. IMPRESSION: NO ACUTE PROCESS.
--- NOTE | 2021-12-09 18:10 | XR ---
PROCEDURE: XR femur LT - 4V DATE AND TIME: 12/09/2021 5:46 PM CLINICAL INDICATION: Pain after fall TECHNIQUE: Department protocol COMPARISON: None FINDINGS: Lefty hip orthopedic hardware is intact. The distal femoral shaft demonstrates a one shaft width posterior displacement comminuted fracture involving the knee joint. Prominent soft tissue swe lling. No other definite fractures. IMPRESSION: Comminuted distal left femoral fracture.
--- NOTE | 2021-12-09 18:12 | XR ---
EXAMINATION: XR chest 1V - AP supine view DATE AND TIME: 12/09/2021 5:46 PM CLINICAL INDICATION: PHH; pre op clearance TECHNIQUE: AP supine view COMPARISON: 06/19/2017 FINDINGS: Given the AP supine technique, the lungs appear to be well expanded and clear, as seen. The pleural spaces are negative as seen. The cardiac silhouette is enlarged, unchanged. The skeletal structures and soft tissues are negative for acute findings. IMPRESSION: AP supine chest radiograph with no definite acute radiographic process.
[2021-12-09 19:16] LABS: Basophils % (A) 0 %; Eosinophils % (A) 0 %; HGB 17.1 gm/dL (11.4-16.0); Lymphocytes # (A) 0.8 k/uL (1.0-4.8); Lymphocytes % (A) 8 %; MCH 30.9 pg (25.0-35.0); MCHC 32.3 g/dL (31.0-37.0); MCV 95.4 fL (80.0-100.0); Mean Platelet Volume 7.8; Monocytes # (A) 0.5 k/uL (0-1.0); Monocytes % (A) 6 %; Neutrophils # (A) 7.9 k/uL (1.3-7.7); Neutrophils % (A) 85 %; Platelet Count 191 k/uL (150-450); RBC 5.55 m/uL (3.80-5.40); RDW 13.5 % (11.5-15.5); WBC 9.3 k/uL (3.8-10.6)
[2021-12-09 19:18] LABS: Calcium 9.6 mg/dL (8.4-10.2); Potassium 3.9 mmol/L (3.5-5.1)
--- NOTE | 2021-12-09 19:41 | CT ---
EXAMINATION TYPE: CT femur LT without IV con 3-D Reconstruction rendering DATE OF EXAM: 12/09/2021 COMPARISON: Same day radiographs HISTORY: Pain after injury; fx TECHNIQUE: Departmental protocol. CT DLP: 1226.3 mGycm Automated exposure control for dose reduction was used. FINDINGS: Left hip orthopedic hardware is intact. The distal femoral shaft demonstrates a one shaft width posterior displacement comminuted fracture in volving the knee joint. Joint effusion noted. There is associated mild-moderate soft tissue swelling about the knee. The soft tissue swelling abuts the anterior margin of the popliteal vasculature. The bone fragments do not abut the popliteal vascu lature. IMPRESSION: Distal femoral shaft fracture.
[2021-12-09 20:42] VITALS: BP 166/72; PULSE 95; TEMP 98.5
== END 2021-12-09 20:44 | disposition other institution (70) ==
LOC: EC 17:04
DX: S72.302A Unspecified fracture of shaft of left femur, initial encounter for closed fracture (principal); I10 Essential (primary) hypertension; Z79.02 Long term (current) use of antithrombotics/antiplatelets; Z88.1 Allergy status to other antibiotic agents; Z88.3 Allergy status to other anti-infective agents; Z79.899 Other long term (current) drug therapy; W01.0XXA Fall on same level from slipping, tripping and stumbling without subsequent striking against object, initial encounter
CPT/HCPCS: 36415; 80048; 85025; 85610; 85730; 72170; 73552; 71045; 73700; 99285; 96372; J2270

== ENCOUNTER 2022-03-03 10:14 | Inpatient (IN) | payer MEDICARE ==
--- NOTE | 2022-03-03 11:00 | ED ---
General Adult HPI - General Chief complaint: Recheck/Abnormal Lab/Rx Stated complaint: Ulcer, Sent by Time Seen by Provider: 03/03/22 10:26 Source: patient, RN/MD (Spoke with Dr. Villarreal prior to patient arrival), RN notes reviewed Mode of arrival: ambulatory Limitations: no limitations - History of Present Illness Initial comments: Patient is a pleasant [age]-year-old female presenting to the emergency department with concern for sacral ulcer. Patient states she does not ambulate much and does spend a lot of time in bed. Patient is having some discomfort in this area. Patient attributes this to people probing in the area. No fever. No other complaints. Dr. Villarreal does have concern for follow older as well as bone fragments during debridement today. He does recommend patient get admitted with IV antibiotics and surgical infectious disease consult. - Related Data Previous Rx's Medication Instructions Recorded Furosemide [Lasix] 40 mg PO BID #60 tablet 06/21/17 Losartan [Cozaar] 25 mg PO DAILY #30 tab 06/21/17 Metoprolol Succinate (ER) [Toprol 25 mg PO DAILY #30 tab.er.24h 06/21/17 XL] Spironolactone [Aldactone] 25 mg PO DAILY #30 tab 06/21/17 Allergies Allergy/AdvReac Type Severity Reaction Status Date / Time montelukast [From Singulair] Allergy Diarrhea Verified 06/19/17 12:08 acetaminophen [From Tylenol] AdvReac Abdominal Verified 06/19/17 12:08 Pain amoxicillin AdvReac Unknown Verified 06/19/17 12:08 Review of Systems ROS Statement: Those systems with pertinent positive or pertinent negative responses have been documented in the HPI. ROS Other: All systems not noted in ROS Statement are negative. 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 Mother Additional Family Medical History / Comment(s): Mother had cancer in 4 sites unknown primary. Brother(s) Additional Family Medical History / Comment(s): Patient's 1 brother diagnosed with colon cancer at age 15. One brother after having her bowel surgery due to a blood clot. Patient has one son with genetic mutations for familial polycythemia. General Exam Limitations: no limitations General appearance: alert, in no apparent distress Head exam: Present: normocephalic Eye exam: Present: normal appearance Neck exam: Present: normal inspection Respiratory exam: Present: normal lung sounds bilaterally Cardiovascular Exam: Present: tachycardia GI/Abdominal exam: Present: soft. Absent: tenderness Extremities exam: Present: normal inspection Neurological exam: Present: alert Psychiatric exam: Present: normal affect, normal mood Skin exam: Present: other (Sacral ulcer, stage IV with foul odor.) Course Vital Signs 03/03/22 10:26 Temperature 98.7 F Pulse Rate 110 H Respiratory 20 Rate Blood Pressure 98/54 O2 Sat by Pulse 97 Oximetry - Reevaluation(s) Reevaluation #1: 03/03/22 12:40 Patient does qualify for sepsis criteria diagnosed at 1240. Blood culture and lactic acid have been ordered. IV antibiotic's will be ordered. EKG Findings - EKG Comments: EKG Findings:: Sinus tachycardia 103. MA 140. QRS 94. QT 355. QTC 450. Normal axis. Normal QRS. Borderline lateral ST depression. - EKG Results: EKG: interpreted by ERMD Medical Decision Making - Medical Decision Making Patient and family are updated on plan. Case was discussed with Dr. Koenig, who will admit covering Dr. Mary - Lab Data Result diagrams: 03/03/22 11:21 03/03/22 11:21 Lab Results 03/03/22 03/03/22 03/03/22 Range/Units 11:21 11:21 11:21 WBC 12.7 H (3.8-10.6) k/uL RBC 4.73 (3.80-5.40) m/uL Hgb 13.0 (11.4-16.0) gm/dL Hct 41.4 (34.0-46.0) % MCV 87.6 (80.0-100.0) fL MCH 27.5 (25.0-35.0) pg MCHC 31.4 (31.0-37.0) g/dL RDW 16.9 H (11.5-15.5) % Plt Count 394 (150-450) k/uL MPV 7.0 Neutrophils % 85 % Lymphocytes % 10 % Monocytes % 4 % Eosinophils % 1 % Basophils % 1 % Neutrophils # 10.7 H (1.3-7.7) k/uL Lymphocytes # 1.2 (1.0-4.8) k/uL Monocytes # 0.5 (0-1.0) k/uL Eosinophils # 0.1 (0-0.7) k/uL Basophils # 0.1 (0-0.2) k/uL Hypochromasia Slight Anisocytosis Slight PT 11.5 (9.0-12.0) sec INR 1.1 (<1.2) APTT 24.6 (22.0-30.0) sec Sodium 132 L (137-145) mmol/L Potassium 3.8 (3.5-5.1) mmol/L Chloride 96 L (98-107) mmol/L Carbon Dioxide 30 (22-30) mmol/L Anion Gap 6 mmol/L BUN 24 H (7-17) mg/dL Creatinine 0.55 (0.52-1.04) mg/dL Est GFR (CKD-EPI)AfAm >90 (>60 ml/min/1.73 sqM) Est GFR (CKD-EPI)NonAf >90 (>60 ml/min/1.73 sqM) Glucose 100 H (74-99) mg/dL Plasma Lactic Acid Raymond (0.7-2.0) mmol/L Calcium 8.1 L (8.4-10.2) mg/dL Total Bilirubin 1.0 (0.2-1.3) mg/dL AST 32 (14-36) U/L ALT 30 (4-34) U/L Alkaline Phosphatase 174 H (38-126) U/L Total Protein 5.5 L (6.3-8.2) g/dL Albumin 2.5 L (3.5-5.0) g/dL 03/03/22 Range/Units 11:21 WBC (3.8-10.6) k/uL RBC (3.80-5.40) m/uL Hgb (11.4-16.0) gm/dL Hct (34.0-46.0) % MCV (80.0-100.0) fL MCH (25.0-35.0) pg MCHC (31.0-37.0) g/dL RDW (11.5-15.5) % Plt Count (150-450) k/uL MPV Neutrophils % % Lymphocytes % % Monocytes % % Eosinophils % % Basophils % % Neutrophils # (1.3-7.7) k/uL Lymphocytes # (1.0-4.8) k/uL Monocytes # (0-1.0) k/uL Eosinophils # (0-0.7) k/uL Basophils # (0-0.2) k/uL Hypochromasia Anisocytosis PT (9.0-12.0) sec INR (<1.2) APTT (22.0-30.0) sec Sodium (137-145) mmol/L Potassium (3.5-5.1) mmol/L Chloride (98-107) mmol/L Carbon Dioxide (22-30) mmol/L Anion Gap mmol/L BUN (7-17) mg/dL Creatinine (0.52-1.04) mg/dL Est GFR (CKD-EPI)AfAm (>60 ml/min/1.73 sqM) Est GFR (CKD-EPI)NonAf (>60 ml/min/1.73 sqM) Glucose (74-99) mg/dL Plasma Lactic Acid Raymond 1.4 (0.7-2.0) mmol/L Calcium (8.4-10.2) mg/dL Total Bilirubin (0.2-1.3) mg/dL AST (14-36) U/L ALT (4-34) U/L Alkaline Phosphatase (38-126) U/L Total Protein (6.3-8.2) g/dL Albumin (3.5-5.0) g/dL Critical Care Time Critical Care Time: Yes Total Critical Care Time: 32 Disposition Clinical Impression: Sacral ulcer, Sepsis Disposition: ADMITTED IP TO THIS HOSP Condition: Serious Is patient prescribed a controlled substance at d/c from ED?: No Referrals: Ramiro Mary MD [Primary Care Provider] - 1-2 days Time of Disposition: 12:41
[2022-03-03] MEDS: SODIUM CHLORIDE 0.9% 1,000 ML IV SCH ×2 (11:16→22:13)
[2022-03-03 11:32] LABS: Anisocytosis Slight; Basophils # (A) 0.1 k/uL (0-0.2); Basophils % (A) 1 %; Eosinophils # (A) 0.1 k/uL (0-0.7); Eosinophils % (A) 1 %; HCT 41.4 % (34.0-46.0); Hypochromasia Slight; Lymphocytes # (A) 1.2 k/uL (1.0-4.8); Lymphocytes % (A) 10 %; MCH 27.5 pg (25.0-35.0); MCHC 31.4 g/dL (31.0-37.0); MCV 87.6 fL (80.0-100.0); Monocytes # (A) 0.5 k/uL (0-1.0); Monocytes % (A) 4 %; Neutrophils # (A) 10.7 k/uL (1.3-7.7); Neutrophils % (A) 85 %; Platelet Count 394 k/uL (150-450); RBC 4.73 m/uL (3.80-5.40); RDW 16.9 % (11.5-15.5); WBC 12.7 k/uL (3.8-10.6)
[2022-03-03 11:52] LABS: INR 1.1 (<1.2); Partial Thromboplastin Time 24.6 sec (22.0-30.0); Prothrombin Time 11.5 sec (9.0-12.0)
[2022-03-03 12:09] LABS: ALT 30 U/L (4-34); AST 32 U/L (14-36); African American GFR (CKD) >90 (>60 ml/min/1.73 sqM); Albumin 2.5 g/dL (3.5-5.0); Alkaline Phosphatase 174 U/L (38-126); Anion Gap 6 mmol/L; Blood Urea Nitrogen 24 mg/dL (7-17); Calcium 8.1 mg/dL (8.4-10.2); Carbon Dioxide 30 mmol/L (22-30); Chloride 96 mmol/L (98-107); Glucose 100 mg/dL (74-99); Non-African American GFR(CKD) >90 (>60 ml/min/1.73 sqM); Potassium 3.8 mmol/L (3.5-5.1); Sodium 132 mmol/L (137-145); Total Protein 5.5 g/dL (6.3-8.2)
[2022-03-03] MEDS ORDERED: VANCOMYCIN IV PER PHARMACY 1 EACH MISC MISCELLANE PRN (12:41)
[2022-03-03] MEDS ORDERED: LEVOFLOXACIN 500MG-D5W PMX 500 MG in DEXTROSE/WATER 1 100ML.BAG IVPB STA (12:47)
[2022-03-03] MEDS ORDERED: NALOXONE 0.4 MG/ML 1 ML VIAL IV PRN (12:48)
[2022-03-03] MEDS ORDERED: VANCOMYCIN 1,500 MG in SODIUM CHLORIDE 0.9% 500 ML 500 ML IVPB STA (12:54)
--- NOTE | 2022-03-03 12:59 | XR ---
EXAMINATION TYPE: XR pelvis AP view DATE OF EXAM: 03/03/2022 CLINICAL HISTORY: pain TECHNIQUE: Single view the pelvis is submitted. FINDINGS: Bilateral total hip prostheses are in place. There is remodeling of the right acetabulum. L ucency is noted adjacent to the right hip prosthesis which could reflect soft tissue ulceration. No o bvious bony destructive process. No definite fracture seen at this time on this limited study. IMPRESSION: 1. As above
[2022-03-03] MEDS ORDERED: bisacodyL 5 MG TABLET.DR PO PRN (14:11)
[2022-03-03] MEDS ORDERED: MAGNESIUM HYDROXIDE 2,400 MG/10 ML CUP PO PRN (14:11)
[2022-03-03] MEDS ORDERED: ONDANSETRON 4 MG TAB PO PRN (14:11)
[2022-03-03] MEDS ORDERED: LEVOFLOXACIN 500MG-D5W PMX 500 MG in DEXTROSE/WATER 1 100ML.BAG IVPB SCH (14:15)
[2022-03-03] MEDS: HEPARIN SODIUM,PORCINE/PF 5,000 UNIT/0.5 ML SYRINGE SQ SCH ×2 (18:48→22:15)
[2022-03-03] MEDS: MORPHINE SULFATE 4 MG/ML SYRINGE IV PRN (20:20)
--- NOTE | 2022-03-03 20:40 | P.CONS ---
History of Present Illness - Reason for Consult Consult date: 03/03/22 Sacral pressure ulcers sepsis Requesting physician: Vance Gary - Chief Complaint Worsening sacral wound x few days - History of Present Illness Patient is a 71 year old female with multiple comorbidities did have decreased mobility mostly bedbound and apparently did have a sacral pressure ulcer which has been there for couple of months now for the patient to follow with [facility] wound care center, patient apparently was evaluated in the wound care center today and the patient was noticed to have a foul order and some bone fragment in the base of the wound concerning for infection for the patient was sent to the ER for IV antibiotic therapy. On today's evaluation that is 03/03/2022, the patient is afebrile she is mildly tachycardic, patient did have white count of 12.7 with a left shift kidney function has been normal liver enzymes normal, patient did have x-ray of the pelvis area no obvious bony destructive process local cultures are currently pending patient had been complaining of pain to the sacral wound area more of a dull aching 5-6 out of 10 and worse with any manipulation of the wound or change of position did have some foul-smelling drainage Review of Systems Positive point has been mentioned in the HPI rest of the systems are negative Past Medical History Past Medical History: Hypertension Additional Past Medical History / Comment(s): 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 Mother Additional Family Medical History / Comment(s): Mother had cancer in 4 sites unknown primary. Brother(s) Additional Family Medical History / Comment(s): Patient's 1 brother diagnosed with colon cancer at age 15. One brother after having her bowel surgery due to a blood clot. Patient has one son with genetic mutations for familial polycythemia. Medications and Allergies Home Medications Medication Instructions Recorded Confirmed Type Bumetanide [BUMEX] 4 mg PO DAILY 03/03/22 03/03/22 History L.acidoph,Paracasei, B.lactis 1 cap PO DAILY 03/03/22 03/03/22 History [Probiotic] Magnesium Hydroxide [Milk of 7,200 mg PO DAILY PRN 03/03/22 03/03/22 History Magnesia Concentrate] Metoprolol Tartrate [Lopressor] 25 mg PO BID 03/03/22 03/03/22 History Multivitamins, Thera [Multivitamin 1 tab PO DAILY 03/03/22 03/03/22 History (formulary)] Ondansetron [Zofran] 4 mg PO Q12HR PRN 03/03/22 03/03/22 History Primidone [Mysoline] 50 mg PO DAILY 03/03/22 03/03/22 History bisacodyL [Bisacodyl] 10 mg PO DAILY PRN 03/03/22 03/03/22 History Heparin Sodium,Porcine [Heparin 5,000 unit SQ Q12HR #60 each 03/09/22 Rx Sodium] Nystatin 100,000Unit/gm Cream 1 applic TOPICAL BID #1 each 03/09/22 Rx [Mycostatin Cream] Pantoprazole [Protonix] 40 mg PO DAILY #30 tab 03/09/22 Rx Triamcinolone 0.1% Cream [Kenalog 1 applic TOPICAL BID each 03/09/22 Rx 0.1% Cream] Vancomycin 1,500 mg IVPB Q36H each 03/09/22 Rx oxyCODONE HCL 5 mg PO Q6H PRN #6 cap 03/09/22 Rx Allergies Allergy/AdvReac Type Severity Reaction Status Date / Time montelukast [From Singulair] Allergy Diarrhea Verified 03/03/22 12:41 acetaminophen [From Tylenol] AdvReac Abdominal Verified 03/03/22 12:41 Pain amoxicillin AdvReac Unknown Verified 03/03/22 12:41 Physical Exam Vitals: Vital Signs Temp Pulse Pulse Resp BP Pulse Ox 03/03/22 12:46 96 03/03/22 10:26 98.7 F 110 H 20 98/54 97 Intake and Output 03/02/22 03/03/22 03/03/22 22:59 06:59 14:59 Other: Weight 77.927 kg GENERAL DESCRIPTION: Elderly female lying in bed, no distress. No tachypnea or accessory muscle of respiration use. HEENT: Shows Pallor , no scleral icterus. Oral mucous membrane is dry. No pharyngeal erythema or thrush NECK: Trachea central, no thyromegaly. LUNGS: Unlabored breathing. Clear to auscultation anteriorly. No wheeze or crackle. HEART: S1, S2, regular rate and rhythm. No loud murmur ABDOMEN: Soft, no tenderness , guarding or rigidity, no organomegaly EXTREMITIES: No edema of feet. SKIN: No rash, no masses palpable. Patient did have a stage IV sacral pressure ulcer with some purulent drainage bone is palpable at the base of the wound NEUROLOGICAL: The patient is awake, alert, oriented x3, mood and affect normal. Results CBC & Chem 7: 03/06/22 05:36 03/09/22 10:21 Labs: Abnormal Lab Results - Last 24 Hours (Table) 03/03/22 03/03/22 Range/Units 11:21 11:21 WBC 12.7 H (3.8-10.6) k/uL RDW 16.9 H (11.5-15.5) % Neutrophils # 10.7 H (1.3-7.7) k/uL Sodium 132 L (137-145) mmol/L Chloride 96 L (98-107) mmol/L BUN 24 H (7-17) mg/dL Glucose 100 H (74-99) mg/dL Calcium 8.1 L (8.4-10.2) mg/dL Alkaline Phosphatase 174 H (38-126) U/L Total Protein 5.5 L (6.3-8.2) g/dL Albumin 2.5 L (3.5-5.0) g/dL Assessment and Plan (1) Stage IV pressure ulcer of sacral region Status: Acute Code(s): L89.154 - PRESSURE ULCER OF SACRAL REGION, STAGE 4 SNOMED Code(s): 07531584491018 Plan: 1patient with stage IV sacral pressure ulcer concerning for osteomyelitis and the bone is palpable and we will need to cover for both gram-positive as well as gram-negative pathogen. 2patient with penicillin ALLERGY that would limit the number of antibiotic safety use 3 we will empirically start the patient on vancomycin and cefepime while waiting for the cultures to finalize 4check inflammatory markers 5patient may benefit from a wound VAC application to help heal this wound We will follow on clinical condition and cultures to further adjust medication if needed Thank you for this consultation will follow this patient with you Time with Patient: Greater than 30
[2022-03-03] MEDS: CEFEPIME 2 GM in SODIUM CHLORIDE 0.9% 100 ML IVPB SCH (22:14)
[2022-03-03] MEDS: METOPROLOL TARTRATE 25 MG TAB PO SCH (22:15)
[2022-03-04] MEDS: CEFEPIME 2 GM in SODIUM CHLORIDE 0.9% 100 ML IVPB SCH ×4 (01:05→20:31)
[2022-03-04] MEDS: SODIUM CHLORIDE 0.9% 1,000 ML IV SCH ×3 (03:59→18:41)
[2022-03-04] MEDS: VANCOMYCIN 1,500 MG in SODIUM CHLORIDE 0.9% 500 ML 500 ML IVPB SCH ×2 (06:43→17:52)
--- NOTE | 2022-03-04 07:57 | HP ---
HISTORY AND PHYSICAL CHIEF COMPLAINT: Sacral decubitus. HISTORY OF PRESENT ILLNESS: This 71-year-old woman with a past medical history of hypertension and familial polycythemia was being followed by Dr. Ramiro Mary. The patient is unable to ambulate apparently because of arthritis. The patient is using a wheelchair, and the patient developed a sacral decubitus ulcer, which is grade 4, and the patient is referred to [facility] for further evaluation and treatment. Dr. Villarreal has seen the patient, and because of odor and other concerns, the patient is being directed to the ER at this time. There is no history of any fever, rigors, or chills. PAST MEDICAL HISTORY: Reviewed includes polycythemia and hypertension. The rest of the history and the rest of the chart are reviewed. HOME MEDICATIONS: Reviewed include bisacodyl. Doses and the rest of the medications are reviewed. ALLERGIES: Reviewed include Singulair. FAMILY HISTORY: No history of heart disease or strokes in the family. SOCIAL HISTORY: No history of smoking or alcohol intake. REVIEW OF SYSTEMS: Fourteen-point review is negative except as mentioned earlier. PHYSICAL EXAMINATION: VITAL SIGNS: Pulse is 110, blood pressure ntd HEENT: Conjunctivae are normal. NECK: No jugular venous distention. CARDIOVASCULAR: S1 and S2 muffled. RESPIRATORY: Breath sounds diminished at the bases. No rhonchi. No crackles. ABDOMEN: Soft and nontender. LEGS: There is some swelling and sacral decubitus stage IV present. NERVOUS SYSTEM: Diffusely weak. SKIN: n JOINTS: No active deforming arthropathy. LABORATORY DATA: Reviewed personally. WBC 12.7. The rest of the labs are noted. ASSESSMENT: 1. Sacral decubitus, stage IV with failure of outpatient treatment. 2. Secondary cellulitis. 3. Elevated white blood cell count. 4. Hypertension. 5. Familial polycythemia. RECOMMENDATIONS: I recommend to continue current medications and symptomatic treatment. Otherwise, at this time, I recommend cultures, broad-spectrum antibiotics, Infectious Disease evaluation, Surgical evaluation for possible debridement. Resume the home medications once they are confirmed. Prognosis is guarded. Discussed with the patient Further recommendations to follow. MMODL / IJN: [id number] / MTDTerri
[2022-03-04 08:02] LABS: ALT 21 U/L (4-34); AST 22 U/L (14-36); African American GFR (CKD) >90 (>60 ml/min/1.73 sqM); Albumin 2.1 g/dL (3.5-5.0); Albumin/Globulin Ratio 0.8; Alkaline Phosphatase 143 U/L (38-126); Anion Gap 4 mmol/L; Blood Urea Nitrogen 18 mg/dL (7-17); Calcium 7.6 mg/dL (8.4-10.2); Carbon Dioxide 29 mmol/L (22-30); Chloride 100 mmol/L (98-107); Globulin 2.5 g/dL; Glucose 99 mg/dL (74-99); Non-African American GFR(CKD) >90 (>60 ml/min/1.73 sqM); Potassium 3.1 mmol/L (3.5-5.1); Sodium 133 mmol/L (137-145); Total Protein 4.6 g/dL (6.3-8.2)
[2022-03-04 08:06] LABS: Anisocytosis Slight; Basophils % (A) 0 %; Eosinophils % (A) 0 %; HCT 36.1 % (34.0-46.0); HGB 11.5 gm/dL (11.4-16.0); Hypochromasia Slight; Lymphocytes # (A) 0.7 k/uL (1.0-4.8); Lymphocytes % (A) 8 %; MCH 28.2 pg (25.0-35.0); MCHC 31.9 g/dL (31.0-37.0); MCV 88.2 fL (80.0-100.0); Mean Platelet Volume 7.7; Monocytes # (A) 0.3 k/uL (0-1.0); Monocytes % (A) 3 %; Neutrophils # (A) 8.1 k/uL (1.3-7.7); Neutrophils % (A) 88 %; Platelet Count 339 k/uL (150-450); RBC 4.09 m/uL (3.80-5.40); RDW 17.2 % (11.5-15.5); WBC 9.3 k/uL (3.8-10.6)
[2022-03-04 09:31] LABS: Erythrocyte Sedimentation Rate 72 mm/hr (0-20)
[2022-03-04 09:48] LABS: C Reactive Protein 17.1 mg/dL (<1.0)
[2022-03-04] MEDS: PANTOPRAZOLE 40 MG/10 ML VIAL IV SCH (10:41)
[2022-03-04] MEDS: BUMETANIDE 1 MG TAB PO SCH (10:41)
[2022-03-04] MEDS: HEPARIN SODIUM,PORCINE/PF 5,000 UNIT/0.5 ML SYRINGE SQ SCH ×2 (10:41→20:30)
[2022-03-04] MEDS: PRIMIDONE 50 MG TAB PO SCH (10:42)
[2022-03-04] MEDS: METOPROLOL TARTRATE 25 MG TAB PO SCH ×2 (10:42→20:30)
[2022-03-04] MEDS: MULTIVITAMINS, THERA 1 EACH TAB PO SCH (10:42)
[2022-03-04] MEDS: LACTOBACILLUS ACIDOPH & BULGAR 1 EACH PACKET PO SCH (10:42)
[2022-03-04] MEDS: MORPHINE SULFATE 4 MG/ML SYRINGE IV PRN (10:55)
--- NOTE | 2022-03-04 11:20 | P.GSCN ---
History of Present Illness Consult date: 03/04/22 Reason for Consult: Decubitus ulcer History of present illness: This 71-year-old female who's developed a sacral decubitus ulcer. Patient has a 4 x 4 centimeter ulcer which is deep. There is some evidence of gauze packing in the ulcer. Patient has had some drainage of some purulent fluid from the ulcer cavity. 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 No illicit drug use. No alcohol use. Past Drug Use History: None Reported - Past Family History Father Additional Family Medical History / Comment(s): Father healthy with no major medical problems. Mother Additional Family Medical History / Comment(s): Mother had cancer in 4 sites unknown primary. Brother(s) Additional Family Medical History / Comment(s): Patient's 1 brother diagnosed with colon cancer at age 15. One brother after having bowel surgery due to a blood clot. Patient has one son with genetic mutations for familial polycythemia. Medications and Allergies Home Medications Medication Instructions Recorded Confirmed Type Bumetanide [BUMEX] 4 mg PO DAILY 03/03/22 03/03/22 History L.acidoph,Paracasei, B.lactis 1 cap PO DAILY 03/03/22 03/03/22 History [Probiotic] Magnesium Hydroxide [Milk of 7,200 mg PO DAILY PRN 03/03/22 03/03/22 History Magnesia Concentrate] Metoprolol Tartrate [Lopressor] 25 mg PO BID 03/03/22 03/03/22 History Multivitamins, Thera [Multivitamin 1 tab PO DAILY 03/03/22 03/03/22 History (formulary)] Ondansetron [Zofran] 4 mg PO Q12HR PRN 03/03/22 03/03/22 History Primidone [Mysoline] 50 mg PO DAILY 03/03/22 03/03/22 History bisacodyL [Bisacodyl] 10 mg PO DAILY PRN 03/03/22 03/03/22 History oxyCODONE HCL 5 mg PO Q6H PRN 03/03/22 03/03/22 History Allergies Allergy/AdvReac Type Severity Reaction Status Date / Time montelukast [From Singulair] Allergy Diarrhea Verified 03/03/22 12:41 acetaminophen [From Tylenol] AdvReac Abdominal Verified 03/03/22 12:41 Pain amoxicillin AdvReac Unknown Verified 03/03/22 12:41 Surgical - Exam Vital Signs Temp Pulse Resp BP Pulse Ox 98.7 F 110 H 20 98/54 97 03/03/22 10:26 03/03/22 10:26 03/03/22 10:26 03/03/22 10:26 03/03/22 10:26 - General well developed, well nourished, no distress - Eyes PERRL - ENT normal pinna - Neck no masses - Respiratory normal expansion - Cardiovascular Rhythm: regular - Abdomen Abdomen: soft, non tender - Integumentary Sacral decubitus ulcer position of her coccyx. The ulcer measures 4 x 4 centimeters. His prostate 4 cm deep. He was some purulent drainage. Results - Labs 03/04/22 05:40 03/04/22 05:40 Abnormal Lab Results - Last 24 Hours (Table) 03/03/22 03/03/22 03/04/22 Range/Units 11:21 11:21 05:40 WBC 12.7 H (3.8-10.6) k/uL RDW 16.9 H 17.2 H (11.5-15.5) % Neutrophils # 10.7 H 8.1 H (1.3-7.7) k/uL Lymphocytes # 0.7 L (1.0-4.8) k/uL ESR 72 H (0-20) mm/hr Sodium 132 L (137-145) mmol/L Potassium (3.5-5.1) mmol/L Chloride 96 L (98-107) mmol/L BUN 24 H (7-17) mg/dL Creatinine (0.52-1.04) mg/dL Glucose 100 H (74-99) mg/dL Calcium 8.1 L (8.4-10.2) mg/dL Alkaline Phosphatase 174 H (38-126) U/L C-Reactive Protein (<1.0) mg/dL Total Protein 5.5 L (6.3-8.2) g/dL Albumin 2.5 L (3.5-5.0) g/dL 03/04/22 Range/Units 05:40 WBC (3.8-10.6) k/uL RDW (11.5-15.5) % Neutrophils # (1.3-7.7) k/uL Lymphocytes # (1.0-4.8) k/uL ESR (0-20) mm/hr Sodium 133 L (137-145) mmol/L Potassium 3.1 L (3.5-5.1) mmol/L Chloride (98-107) mmol/L BUN 18 H (7-17) mg/dL Creatinine 0.48 L (0.52-1.04) mg/dL Glucose (74-99) mg/dL Calcium 7.6 L (8.4-10.2) mg/dL Alkaline Phosphatase 143 H (38-126) U/L C-Reactive Protein 17.1 H (<1.0) mg/dL Total Protein 4.6 L (6.3-8.2) g/dL Albumin 2.1 L (3.5-5.0) g/dL Microbiology - Last 24 Hours (Table) 03/03/22 11:21 Wound Culture - Preliminary Buttock Diabetes panel 03/03/22 03/04/22 Range/Units 11:21 05:40 Sodium 132 L 133 L (137-145) mmol/L Potassium 3.8 3.1 L (3.5-5.1) mmol/L Chloride 96 L 100 (98-107) mmol/L Carbon Dioxide 30 29 (22-30) mmol/L BUN 24 H 18 H (7-17) mg/dL Creatinine 0.55 0.48 L (0.52-1.04) mg/dL Glucose 100 H 99 (74-99) mg/dL Calcium 8.1 L 7.6 L (8.4-10.2) mg/dL AST 32 22 (14-36) U/L ALT 30 21 (4-34) U/L Alkaline Phosphatase 174 H 143 H (38-126) U/L Total Protein 5.5 L 4.6 L (6.3-8.2) g/dL Albumin 2.5 L 2.1 L (3.5-5.0) g/dL Calcium panel 03/03/22 03/04/22 Range/Units 11:21 05:40 Calcium 8.1 L 7.6 L (8.4-10.2) mg/dL Albumin 2.5 L 2.1 L (3.5-5.0) g/dL Pituitary panel 03/03/22 03/04/22 Range/Units 11:21 05:40 Sodium 132 L 133 L (137-145) mmol/L Potassium 3.8 3.1 L (3.5-5.1) mmol/L Chloride 96 L 100 (98-107) mmol/L Carbon Dioxide 30 29 (22-30) mmol/L BUN 24 H 18 H (7-17) mg/dL Creatinine 0.55 0.48 L (0.52-1.04) mg/dL Glucose 100 H 99 (74-99) mg/dL Calcium 8.1 L 7.6 L (8.4-10.2) mg/dL Adrenal panel 03/03/22 03/04/22 Range/Units 11:21 05:40 Sodium 132 L 133 L (137-145) mmol/L Potassium 3.8 3.1 L (3.5-5.1) mmol/L Chloride 96 L 100 (98-107) mmol/L Carbon Dioxide 30 29 (22-30) mmol/L BUN 24 H 18 H (7-17) mg/dL Creatinine 0.55 0.48 L (0.52-1.04) mg/dL Glucose 100 H 99 (74-99) mg/dL Calcium 8.1 L 7.6 L (8.4-10.2) mg/dL Total Bilirubin 1.0 1.0 (0.2-1.3) mg/dL AST 32 22 (14-36) U/L ALT 30 21 (4-34) U/L Alkaline Phosphatase 174 H 143 H (38-126) U/L Total Protein 5.5 L 4.6 L (6.3-8.2) g/dL Albumin 2.5 L 2.1 L (3.5-5.0) g/dL Assessment and Plan Assessment: Sacral decubitus ulcer. Patient will undergo wet-to-dry local wound care for the ulcer. Debridement is planned.
--- NOTE | 2022-03-04 13:35 | CDI ---
Documentation Clarification Form Date: 03/04/2022 01:07:35 PM From: Anh Hamlin RN CCDS Admit Date: 03/03/2022 12:48:00 PM Patient Name: Kat Giordano Visit Number: [id number] Discharge Date: ATTENTION: The Clinical Documentation Specialists (CDI) and [facility] Coding Staff appreciate your assistance in clarifying documentation. Please respond to the clarification below the line at the bottom and electronically sign. The CDI & [facility] Coding staff will review the response and follow-up if needed. Please note: Queries are made part of the Legal Health Record. If you have any questions, please contact the author of this message via ITS. Dr. Moisés Koenig Sepsis is documented 03/03, ED Note, but is not noted in subsequent documentation. Clarification is requested. History/Risk Factors: Dr. Villarreal directed 71-year-old female to present to the ED for stage IV sacral decubitus ulcer that has odor and other concerns. Medical history: The patient is unable to ambulate and uses Wheelchair, Familial polycythemia secondary to [place] hemoglobin gene mutation and arthritis. 03/03, H&P. Clinical Indicators: WBC: 03/03 12.7 Neutrophils: 03/03 10.7 Vitals signs: 03/03 B/P 98/54; HR 110; Temp 98.7 F Oral; RR 20; SpO2 97% ra Wound Culture: 03/03 pending Blood Culture: No growth after 24 hours. Treatment: ID Consult: Stage IV sacral pressure ulcer concerning for osteomyelitis. We will empirically start the patient on Vancomycin and Cefepime while waiting for cultures to finalize. Antibiotics: 03/03 Levofloxacin IVPB x 1; 03/03 Vancomycin IVPB x 1; 03/03 - current Cefepime IVPB Q8HR; 03/04 Vancomycin trough pending. IV Fluids: 03/03 current 0.9NS 130cc/hr In your professional opinion, please clarify if these findings signify one of the following conditions: [ ] Sepsis POA [ ] Sepsis ruled out [ ] Other, please specify [ ] Unable to determine SIRS Criteria: 2 or more of the following may indicate SIRS -Temperature < 96.8F (36C) or > 101.0F (38.3C) -Heart Rate > 90 bpm -Respiratory Rate > 20 breaths/min or PaCO2 < 32 mmHg -White Blood Cell Count > 12,000 or < 4,000 cells/mm3 or > 10% bands (Template Last Reviewed: April 2020) none MTDD
[2022-03-04] MEDS ORDERED: Magnesium Replacement Protocol 1 EACH MISC MISCELLANE PRN (14:59)
[2022-03-04] MEDS ORDERED: Potassium Replacement Protocol 1 EACH MISC MISCELLANE PRN (14:59)
[2022-03-04] MEDS ORDERED: HYDROmorphone 0.5 MG/0.5 ML SYRINGE IVP PRN (14:59)
--- NOTE | 2022-03-04 20:54 | P.PN ---
Subjective Progress Note Date: 03/04/22 Principal diagnosis: Infected sacral pressure ulcer Patient is a 71 year old female with multiple comorbidities did have decreased mobility mostly bedbound and apparently did have a sacral pressure ulcer which has been there for couple of months now for the patient to follow with [facility] wound care center, patient was sent to the ER concerning for one infection and osteomyelitis with a bone fragment the base of the wound per the ER report on today's evaluation that is 03/04/2022, the patient denies having any fever or chills, the patient is breathing comfortably no chest pain shortness of breath or cough no abdominal pain pain to the sacral wound is currently controlled no nausea no vomiting and no diarrhea Objective - Vital Signs Vital signs: Vital Signs Temp 98.1 F 03/04/22 08:04 Pulse 87 03/04/22 08:45 Resp 16 03/04/22 08:45 BP 154/79 03/04/22 08:04 Pulse Ox 96 03/04/22 09:31 FiO2 Intake & Output 03/03/22 03/04/22 03/04/22 18:59 06:59 18:59 Intake Total 250 Output Total 600 Balance -350 Weight 77.927 kg 77.927 kg Intake: Oral 250 Output: Urine 600 Other: Voiding Method Indwelling Catheter Indwelling Catheter - Exam GENERAL DESCRIPTION: An elderly female lying in bed in no distress RESPIRATORY SYSTEM: Unlabored breathing , decreased breath sounds at bases HEART: S1 S2 regular rate and rhythm , ABDOMEN: Soft , no tenderness EXTREMITIES: No edema feet - Labs CBC & Chem 7: 03/04/22 05:40 03/04/22 05:40 Labs: Abnormal Lab Results - Last 24 Hours (Table) 03/04/22 03/04/22 Range/Units 05:40 05:40 RDW 17.2 H (11.5-15.5) % Neutrophils # 8.1 H (1.3-7.7) k/uL Lymphocytes # 0.7 L (1.0-4.8) k/uL ESR 72 H (0-20) mm/hr Sodium 133 L (137-145) mmol/L Potassium 3.1 L (3.5-5.1) mmol/L BUN 18 H (7-17) mg/dL Creatinine 0.48 L (0.52-1.04) mg/dL Calcium 7.6 L (8.4-10.2) mg/dL Alkaline Phosphatase 143 H (38-126) U/L C-Reactive Protein 17.1 H (<1.0) mg/dL Total Protein 4.6 L (6.3-8.2) g/dL Albumin 2.1 L (3.5-5.0) g/dL Microbiology - Last 24 Hours (Table) 03/03/22 11:21 Wound Culture - Preliminary Buttock Assessment and Plan (1) Stage IV pressure ulcer of sacral region Current Visit: Yes Status: Acute Code(s): L89.154 - PRESSURE ULCER OF SACRAL REGION, STAGE 4 SNOMED Code(s): 81432642773818 Plan: 1patient with stage IV sacral pressure ulcer concerning for osteomyelitis and the bone is palpable and we will need to cover for both gram-positive as well as gram-negative pathogen. 2patient with penicillin ALLERGY that would limit the number of antibiotic safety use 3-patient evaluated by general surgery recommending no surgical intervention 4- patient to continue with vancomycin and cefepime while waiting for the cultures to finalize Time with Patient: Less than 30
[2022-03-04] MEDS: POTASSIUM CHLORIDE ER 20 MEQ TAB.ER PO SCH (23:24)
[2022-03-05] MEDS: POTASSIUM CHLORIDE ER 20 MEQ TAB.ER PO SCH ×5 (01:46→12:30)
[2022-03-05] MEDS: SODIUM CHLORIDE 0.9% 1,000 ML IV SCH ×2 (01:46→10:47)
--- NOTE | 2022-03-05 05:14 | PN ---
PROGRESS NOTE DATE OF SERVICE: 03/04/2022 SUBJECTIVE: This is a 71-year-old woman, who was admitted with sacral decubitus, also being evaluated for osteomyelitis. No chest pain. No palpitations. No fever. OBJECTIVE: VITAL SIGNS: Pulse 87, blood pressure 150/70, respirations 16. HEENT: Conjunctivae normal. NECK: No JVD. CARDIOVASCULAR: S1, S2. RESPIRATIONS: Breath sounds diminished at the bases. ABDOMEN: Soft. BACK: Ulcer present. NERVOUS SYSTEM: No focal deficits. LABORATORY DATA: Reviewed. ASSESSMENT: 1. Sacral decubitus, stage IV, with failure of outpatient treatment. 2. Rule out osteomyelitis. 3. Secondary cellulitis. 4. Elevated WBC. 5. Hypertension. 6. Familial polycythemia. 7. Multiple medical issues. RECOMMENDATIONS: Recommend to continue current management and symptomatic treatment. I am going to order a bone scan. Continue the antibiotics. Follow the cultures. Prognosis guarded. Further recommendations to follow. MMODL / IJN: [id number] /
[2022-03-05 05:49] LABS: Anisocytosis Slight; Basophils % (A) 1 %; Eosinophils # (A) 0.1 k/uL (0-0.7); Eosinophils % (A) 2 %; HCT 37.5 % (34.0-46.0); HGB 11.8 gm/dL (11.4-16.0); Hypochromasia Marked; Lymphocytes % (A) 14 %; MCH 28.3 pg (25.0-35.0); MCHC 31.3 g/dL (31.0-37.0); MCV 90.2 fL (80.0-100.0); Mean Platelet Volume 7.2; Monocytes # (A) 0.2 k/uL (0-1.0); Monocytes % (A) 4 %; Neutrophils # (A) 5.1 k/uL (1.3-7.7); Neutrophils % (A) 78 %; Platelet Count 287 k/uL (150-450); RBC 4.16 m/uL (3.80-5.40); RDW 16.9 % (11.5-15.5); WBC 6.6 k/uL (3.8-10.6)
[2022-03-05] MEDS: VANCOMYCIN 1,500 MG in SODIUM CHLORIDE 0.9% 500 ML 500 ML IVPB SCH ×2 (05:50→17:32)
[2022-03-05] MEDS: CEFEPIME 2 GM in SODIUM CHLORIDE 0.9% 100 ML IVPB SCH ×2 (05:50→13:22)
[2022-03-05 06:02] LABS: ALT 17 U/L (4-34); AST 17 U/L (14-36); African American GFR (CKD) >90 (>60 ml/min/1.73 sqM); Albumin/Globulin Ratio 0.8; Alkaline Phosphatase 111 U/L (38-126); Anion Gap 2 mmol/L; Blood Urea Nitrogen 14 mg/dL (7-17); Calcium 7.3 mg/dL (8.4-10.2); Carbon Dioxide 28 mmol/L (22-30); Chloride 103 mmol/L (98-107); Globulin 2.5 g/dL; Glucose 119 mg/dL (74-99); Magnesium 1.5 mg/dL (1.6-2.3); Non-African American GFR(CKD) >90 (>60 ml/min/1.73 sqM); Potassium 2.8 mmol/L (3.5-5.1); Sodium 133 mmol/L (137-145); Total Bilirubin 0.6 mg/dL (0.2-1.3); Total Protein 4.5 g/dL (6.3-8.2)
[2022-03-05] MEDS: MAGNESIUM SULFATE-D5W PMX 1 GM in DEXTROSE/WATER 1 100ML.BAG IVPB SCH ×2 (07:42→08:48)
[2022-03-05] MEDS: BUMETANIDE 1 MG TAB PO SCH (07:43)
[2022-03-05] MEDS: HEPARIN SODIUM,PORCINE/PF 5,000 UNIT/0.5 ML SYRINGE SQ SCH ×2 (07:43→19:59)
[2022-03-05] MEDS: LACTOBACILLUS ACIDOPH & BULGAR 1 EACH PACKET PO SCH (07:43)
[2022-03-05] MEDS: METOPROLOL TARTRATE 25 MG TAB PO SCH ×2 (07:43→20:00)
[2022-03-05] MEDS: PANTOPRAZOLE 40 MG/10 ML VIAL IV SCH (07:43)
[2022-03-05] MEDS: PRIMIDONE 50 MG TAB PO SCH (07:43)
[2022-03-05] MEDS: MULTIVITAMINS, THERA 1 EACH TAB PO SCH (07:44)
[2022-03-05] MEDS ORDERED: Potassium Replacement Protocol 1 EACH MISC MISCELLANE PRN (10:20)
[2022-03-05] MEDS ORDERED: Magnesium Replacement Protocol 1 EACH MISC MISCELLANE PRN (10:20)
[2022-03-05] MEDS: 0.9% NACL WITH KCL 40 MEQ/L 1,000 ML IV SCH (11:02)
[2022-03-05 11:24] VITALS: BMI 33.5
--- NOTE | 2022-03-05 12:42 | P.PN ---
Progress Note - Text Progress Note Date: 03/05/22 Patient Anastasia stable. Her decubitus ulcer is clean. Patient may start wound VAC therapy for her to give us ulcer after being evaluated by Dr. Marsh.
--- NOTE | 2022-03-05 14:10 | P.PN ---
Subjective Progress Note Date: 03/05/22 Principal diagnosis: Infected sacral pressure ulcer Patient is a 71 year old female with multiple comorbidities did have decreased mobility mostly bedbound and apparently did have a sacral pressure ulcer which has been there for couple of months now for the patient to follow with [facility] care center, patient was sent to the ER concerning for one infection and osteomyelitis with a bone fragment the base of the wound per the ER report on today's evaluation that is 03/05/2022, the patient remains to be afebrile, the patient is breathing comfortably on room air, the patient denies chest pain shortness of breath or cough no abdominal pain pain to the sacral wound is currently controlled no nausea no vomiting and no diarrhea Objective - Vital Signs Vital signs: Vital Signs Temp 97.6 F 03/05/22 08:25 Pulse 83 03/05/22 08:25 Resp 18 03/05/22 08:25 BP 150/65 03/05/22 08:25 Pulse Ox 98 03/05/22 08:25 FiO2 Intake & Output 03/04/22 03/05/22 03/05/22 18:59 06:59 18:59 Intake Total 240 Output Total 300 3475 775 Balance -60 -3475 -775 Weight 77.927 kg Intake: Oral 240 Output: Urine 300 3475 775 Other: Voiding Method Indwelling Catheter Indwelling Catheter Indwelling Catheter - Exam GENERAL DESCRIPTION: An elderly female lying in bed in no distress RESPIRATORY SYSTEM: Unlabored breathing , decreased breath sounds at bases HEART: S1 S2 regular rate and rhythm , ABDOMEN: Soft , no tenderness EXTREMITIES: No edema feet - Labs CBC & Chem 7: 03/05/22 05:37 03/05/22 05:37 Labs: Abnormal Lab Results - Last 24 Hours (Table) 03/04/22 03/05/22 03/05/22 Range/Units 22:43 05:37 05:37 RDW 16.9 H (11.5-15.5) % Sodium 133 L (137-145) mmol/L Potassium 2.5 L* 2.8 L (3.5-5.1) mmol/L Creatinine 0.43 L (0.52-1.04) mg/dL Glucose 119 H (74-99) mg/dL Calcium 7.3 L (8.4-10.2) mg/dL Magnesium 1.5 L (1.6-2.3) mg/dL Total Protein 4.5 L (6.3-8.2) g/dL Albumin 2.0 L (3.5-5.0) g/dL Microbiology - Last 24 Hours (Table) 03/03/22 11:21 Gram Stain - Preliminary Buttock Wound Culture - Preliminary 03/03/22 11:10 Blood Culture - Preliminary Blood No Growth after 24 hours 03/03/22 10:55 Blood Culture - Preliminary Blood No Growth after 24 hours Assessment and Plan (1) Stage IV pressure ulcer of sacral region Current Visit: Yes Status: Acute Code(s): L89.154 - PRESSURE ULCER OF SACRAL REGION, STAGE 4 SNOMED Code(s): 29008844761896 Plan: 1patient with stage IV sacral pressure ulcer concerning for osteomyelitis and the bone is palpable and we will need to cover for both gram-positive as well as gram-negative pathogen. 2patient with penicillin ALLERGY that would limit the number of antibiotic safety use 3-patient evaluated by general surgery recommending no surgical intervention 4- patient local culture did grew Enterococcus faecalis which is a penicillin sensitive however the patient is ALLERGIC to amoxicillin. We will continue the patient on vancomycin however discontinue cefepime Time with Patient: Less than 30
[2022-03-05] MEDS ORDERED: VANCOMYCIN TROUGH DUE 1 EACH MISC MISCELLANE ONE (17:00)
[2022-03-05 18:21] LABS: Potassium 3.9 mmol/L (3.5-5.1)
[2022-03-05] MEDS ORDERED: VANCOMYCIN IV PER PHARMACY 1 EACH MISC MISCELLANE PRN (18:36)
[2022-03-06] MEDS: 0.9% NACL WITH KCL 40 MEQ/L 1,000 ML IV SCH (05:44)
[2022-03-06 06:52] LABS: African American GFR (CKD) >90 (>60 ml/min/1.73 sqM); Anion Gap 5 mmol/L; Blood Urea Nitrogen 15 mg/dL (7-17); Carbon Dioxide 24 mmol/L (22-30); Chloride 106 mmol/L (98-107); Glucose 92 mg/dL (74-99); Magnesium 1.8 mg/dL (1.6-2.3); Non-African American GFR(CKD) >90 (>60 ml/min/1.73 sqM); Potassium 4.4 mmol/L (3.5-5.1); Sodium 135 mmol/L (137-145)
--- NOTE | 2022-03-06 08:43 | PN ---
PROGRESS NOTE DATE OF SERVICE: 03/05/2022 SUBJECTIVE: This is a 71-year-old woman who was admitted with sacral decubitus stage IV, is being evaluated for osteomyelitis also. Bone scan is pending. No fever, no cough. OBJECTIVE: VITAL SIGNS: Pulse is 83, blood pressure ntd, and respirations 18. CHEST: Clear to auscultation. ABDOMEN: Soft, decubitus ulcer present. NERVOUS SYSTEM: No focal deficits. LABS: Potassium noted, otherwise cultures are pending at this time. ASSESSMENT: 1. Sacral decubitus ulcer stage IV with failure of outpatient treatment. 2. Rule out osteomyelitis. 3. Secondary cellulitis. 4. Elevated WBC. 5. Hypertension. 6. Familial polycythemia. 7. Multiple medical issues. RECOMMENDATIONS: Recommended to continue current management. Continue the IV antibiotics. Bone scan. Closely follow with ID. Guarded prognosis. Further recommendations to follow. MMODL / IJN: [id number] / MTDD
[2022-03-06] MEDS: HEPARIN SODIUM,PORCINE/PF 5,000 UNIT/0.5 ML SYRINGE SQ SCH ×2 (09:30→19:47)
[2022-03-06] MEDS: LACTOBACILLUS ACIDOPH & BULGAR 1 EACH PACKET PO SCH (09:30)
[2022-03-06] MEDS: PANTOPRAZOLE 40 MG/10 ML VIAL IV SCH (09:30)
[2022-03-06] MEDS: MULTIVITAMINS, THERA 1 EACH TAB PO SCH (09:30)
[2022-03-06] MEDS: METOPROLOL TARTRATE 25 MG TAB PO SCH ×2 (09:31→19:47)
[2022-03-06] MEDS: BUMETANIDE 1 MG TAB PO SCH (09:31)
[2022-03-06] MEDS: PRIMIDONE 50 MG TAB PO SCH (09:31)
[2022-03-06 09:41] LABS: Basophils # (A) 0.05 X 10*3/uL (0.00-0.10); Basophils % (A) 0.6 %; Eosinophils # (A) 0.11 X 10*3/uL (0.04-0.35); Eosinophils % (A) 1.3 %; HCT 39.2 % (37.2-46.3); HGB 12.2 g/dL (12.0-15.0); Immature Grans, Automated 1.2 %; Lymphocytes # (A) 1.54 X 10*3/uL (0.90-5.00); Lymphocytes % (A) 18.5 %; MCH 27.2 pg (27.0-32.0); MCHC 31.1 g/dL (32.0-37.0); MCV 87.5 fL (80.0-97.0); Mean Platelet Volume 8.3 fL (9.5-12.2); Monocytes # (A) 0.58 X 10*3/uL (0.20-1.00); NRBC Per 100 WBC 0 /100 WBCS (0.0-0.0); Neutrophils # (A) 5.93 X 10*3/uL (1.80-7.70); Neutrophils % (A) 71.4 %; Platelet Count 338 X 10*3/uL (140-440); RBC 4.48 X 10*6/uL (4.10-5.20); RDW 18.6 % (11.5-14.5); WBC 8.31 X 10*3/uL (4.50-10.00)
--- NOTE | 2022-03-06 12:07 | P.PN ---
Progress Note - Text Progress Note Date: 03/06/22 Patient's decubitus ulcer wound is stable. She'll continue local wound care.
--- NOTE | 2022-03-06 15:36 | P.PN ---
Subjective Progress Note Date: 03/06/22 Principal diagnosis: Infected sacral pressure ulcer Patient is a 71 year old female with multiple comorbidities did have decreased mobility mostly bedbound and apparently did have a sacral pressure ulcer which has been there for couple of months now for the patient to follow with [facility] wound care center, patient was sent to the ER concerning for one infection and osteomyelitis with a bone fragment the base of the wound per the ER report on today's evaluation that is 03/06/2022, the patient continues to be afebrile, the patient is breathing comfortably on room air, the patient denies chest pain shortness of breath or cough , the patient denies nausea no vomiting no abdominal pain and pain to the sacral wound is currently controlled Objective - Vital Signs Vital signs: Vital Signs Temp 98.1 F 03/06/22 12:04 Pulse 89 03/06/22 12:04 Resp 16 03/06/22 12:04 BP 111/73 03/06/22 12:04 Pulse Ox 97 03/06/22 12:04 FiO2 Intake & Output 03/05/22 03/06/22 03/06/22 18:59 06:59 18:59 Intake Total 1170 Output Total 4475 800 Balance -3305 -800 Weight 77.927 kg Intake: Intake, IV Titration 1170 Amount 0.9% NaCl with KCl 40 Meq 350 /l 1,000 ml @ 50 mls/hr IV .Q20H [facility] Rx#: [id number] Cefepime 2 gm In Sodium 100 Chloride 0.9% 100 ml @ 25 mls/hr IVPB Q8H [facility] Rx#: [id number] Magnesium Sulfate-D5w Pmx 200 1 gm In Dextrose/Water 1 100ml.bag @ 100 mls/hr IVPB Q1H [facility] Rx#: [id number] Sodium Chloride 0.9% 1, 520 000 ml @ 130 mls/hr IV . Q7H42M [facility] Rx#:[id number] Output: Urine 4475 800 Other: Voiding Method Indwelling Catheter Indwelling Catheter Indwelling Catheter # Bowel Movements 1 - Exam GENERAL DESCRIPTION: An elderly female lying in bed in no distress RESPIRATORY SYSTEM: Unlabored breathing , decreased breath sounds at bases HEART: S1 S2 regular rate and rhythm , ABDOMEN: Soft , no tenderness EXTREMITIES: No edema feet - Labs CBC & Chem 7: 03/06/22 05:36 03/06/22 05:36 Labs: Abnormal Lab Results - Last 24 Hours (Table) 03/05/22 03/06/22 03/06/22 Range/Units 17:24 05:36 05:36 MCHC 31.1 L (32.0-37.0) g/dL RDW 18.6 H (11.5-14.5) % MPV 8.3 L (9.5-12.2) fL Immature Gran # 0.10 H (0.00-0.04) X 10*3/uL Sodium 134 L 135 L (137-145) mmol/L Calcium 8.0 L (8.4-10.2) mg/dL Microbiology - Last 24 Hours (Table) 03/03/22 11:10 Blood Culture - Preliminary Blood No Growth after 72 hours 03/03/22 10:55 Blood Culture - Preliminary Blood No Growth after 72 hours 03/03/22 11:21 Gram Stain - Final Buttock Wound Culture - Final Enterococcus faecalis Assessment and Plan (1) Stage IV pressure ulcer of sacral region Current Visit: Yes Status: Acute Code(s): L89.154 - PRESSURE ULCER OF SACRAL REGION, STAGE 4 SNOMED Code(s): 39374274655632 Plan: 1patient with stage IV sacral pressure ulcer concerning for osteomyelitis and the bone is palpable and we will need to cover for both gram-positive as well as gram-negative pathogen. 2patient with penicillin ALLERGY that would limit the number of antibiotic safety use 3-patient evaluated by general surgery recommending no surgical intervention 4- patient local culture did grew Enterococcus faecalis which is a penicillin sensitive however the patient is ALLERGIC to amoxicillin patient continue with vancomycin we'll get a PICC line for outpatient IV antibiotics Time with Patient: Less than 30
[2022-03-07] MEDS: 0.9% NACL WITH KCL 40 MEQ/L 1,000 ML IV SCH (02:17)
[2022-03-07 06:15] LABS: African American GFR (CKD) >90 (>60 ml/min/1.73 sqM); Non-African American GFR(CKD) >90 (>60 ml/min/1.73 sqM)
[2022-03-07 06:20] LABS: Vancomycin,Random 15.3 ug/mL
[2022-03-07] MEDS: PRIMIDONE 50 MG TAB PO SCH (08:21)
[2022-03-07] MEDS: BUMETANIDE 1 MG TAB PO SCH (08:21)
[2022-03-07] MEDS: METOPROLOL TARTRATE 25 MG TAB PO SCH ×2 (08:21→21:46)
[2022-03-07] MEDS: MULTIVITAMINS, THERA 1 EACH TAB PO SCH (08:21)
[2022-03-07] MEDS: LACTOBACILLUS ACIDOPH & BULGAR 1 EACH PACKET PO SCH (08:21)
[2022-03-07] MEDS: HEPARIN SODIUM,PORCINE/PF 5,000 UNIT/0.5 ML SYRINGE SQ SCH ×2 (08:21→21:46)
[2022-03-07] MEDS: PANTOPRAZOLE 40 MG/10 ML VIAL IV SCH (08:21)
--- NOTE | 2022-03-07 11:16 | PN ---
PROGRESS NOTE DATE OF SERVICE: 03/06/2022 SUBJECTIVE: This is a 71-year-old woman who was admitted with a sacral decubitus, also being worked to rule out the possibility of osteomyelitis. Bone scan is pending. No chest pain. No palpitations. No fever. OBJECTIVE: VITAL SIGNS: Pulse is 87, blood pressure 120/72, respirations 14. CHEST: Clear to auscultation. CARDIOVASCULAR: S1, S2. ABDOMEN: Soft. BACK: Decubitus present. LABORATORY DATA: Reviewed. The culture showed Enterococcus faecalis. ASSESSMENT: 1. Sacral decubitus stage IV, with failure of outpatient treatment, with Enterococcus faecalis. 2. Rule out osteomyelitis, pending bone scan. 3. Secondary cellulitis. 4. Elevated WBC. 5. Hypertension. 6. Familial polycythemia. 7. Multiple medical issues. RECOMMENDATIONS: Continue current management. Continue the antibiotics. Otherwise, await bone scan. The patient will require possibly IV antibiotics and outpatient followup also. Further recommendations to follow. Debridement per Surgery. MMODL / IJN: [id number] /
[2022-03-07] MEDS ORDERED: VANCOMYCIN 1,500 MG in SODIUM CHLORIDE 0.9% 500 ML 500 ML IVPB ONE (12:00)
--- NOTE | 2022-03-07 12:21 | P.PN ---
Progress Note - Text Progress Note Date: 03/07/22 Patient Anastasia stable. She is receiving wound VAC therapy for her sacral decubitus ulcer. There are no acute changes. She'll continue local wound care.
[2022-03-07] MEDS ORDERED: NYSTAT-TRIAMCIN 100,000-0.1 UNIT/GM-% CREAM 30 GM TUBE TOPICAL SCH (12:45)
--- NOTE | 2022-03-07 13:41 | NM ---
EXAMINATION TYPE: NM bone 3 phase DATE OF EXAM: 03/07/2022 COMPARISON: Radiograph 03/03/2022 HISTORY: 71-year-old female assess for sacral osteomyelitis, pain. TECHNIQUE: Triple phase bone scintigraphy was performed following the injection of 22.3 mCi Tc 99m MD P. Immediate images and 5.5 hours post injection images acquired. Imaging centered on the pelvis. FINDINGS: Activity about the acetabular and proximal femoral stem components of the right internal arthroplasty . No corresponding activity on pool images. No significant asymmetry on flow images. There is some focal activity along the posterior sacrum on the right greater than left lateral view. IMPRESSION: 1. Some focal activity along the posterior sacrum on the right greater than left lateral views is josemanuel picious. If concern for sacral osteomyelitis, consider dedicated CT or MRI to further assess. 2. Some activity at the right hip total arthroplasty may reflect loosening.
[2022-03-07] MEDS: TRIAMCINOLONE 0.1% CREAM 80 GM TUBE TOPICAL SCH ×2 (14:26→21:46)
[2022-03-07] MEDS: NYSTATIN 100,000UNIT/GM CREAM 30 GM TUBE TOPICAL SCH ×2 (14:26→21:46)
--- NOTE | 2022-03-07 16:33 | P.PN ---
Subjective Progress Note Date: 03/07/22 Principal diagnosis: Infected sacral pressure ulcer Patient is a 71 year old female with multiple comorbidities did have decreased mobility mostly bedbound and apparently did have a sacral pressure ulcer which has been there for couple of months now for the patient to follow with [facility] care center, patient was sent to the ER concerning for one infection and osteomyelitis with a bone fragment the base of the wound per the ER report on today's evaluation that is 03/07/2022, the patient remains to be afebrile, the patient is breathing comfortably on room air, the patient denies chest pain shortness of breath or cough , the patient denies nausea no vomiting no abdominal pain and no diarrhea has been reported by the nursing staff Objective - Vital Signs Vital signs: Vital Signs Temp 98.4 F 03/07/22 07:22 Pulse 109 H 03/07/22 07:22 Resp 18 03/07/22 07:22 BP 115/73 03/07/22 07:22 Pulse Ox 98 03/07/22 07:22 FiO2 Intake & Output 03/06/22 03/07/22 03/07/22 18:59 06:59 18:59 Intake Total 1200 Output Total 1300 1100 1050 Balance -1300 100 -1050 Intake: Intake, IV Titration 600 Amount 0.9% NaCl with KCl 40 Meq 600 /l 1,000 ml @ 50 mls/hr IV .Q20H [facility] Rx#: [id number] Oral 600 Output: Urine 1300 1100 1050 Other: Voiding Method Indwelling Catheter Indwelling Catheter Indwelling Catheter # Bowel Movements 1 1 - Exam GENERAL DESCRIPTION: An elderly female lying in bed in no distress RESPIRATORY SYSTEM: Unlabored breathing , decreased breath sounds at bases HEART: S1 S2 regular rate and rhythm , ABDOMEN: Soft , no tenderness Sacral pressure ulcer with some surrounding maceration EXTREMITIES: No edema feet - Labs CBC & Chem 7: 03/06/22 05:36 03/07/22 05:00 Labs: Microbiology - Last 24 Hours (Table) 03/03/22 11:10 Blood Culture - Preliminary Blood No Growth after 72 hours 03/03/22 10:55 Blood Culture - Preliminary Blood No Growth after 72 hours Assessment and Plan (1) Stage IV pressure ulcer of sacral region Current Visit: Yes Status: Acute Code(s): L89.154 - PRESSURE ULCER OF SACRAL REGION, STAGE 4 SNOMED Code(s): 14636983790283 Plan: 1patient with stage IV sacral pressure ulcer concerning for osteomyelitis and the bone is palpable and we will need to cover for both gram-positive as well as gram-negative pathogen. 2patient with penicillin ALLERGY that would limit the number of antibiotic safety use 3-patient evaluated by general surgery recommending no surgical intervention, bone scan has been suspicious for osteomyelitis of the sacral area 4local wound care with Aquacel silver packing of the wound and Mycolog cream to the surrounding maceration 5- patient local culture did grew Enterococcus faecalis which is a penicillin sensitive however the patient is ALLERGIC to amoxicillin patient continue with vancomycin, PICC line has been ordered for tomorrow for outpatient antibiotic therapy Time with Patient: Less than 30
--- NOTE | 2022-03-07 23:43 | PN ---
PROGRESS NOTE DATE OF SERVICE: 03/07/2022 SUBJECTIVE: This is a 71-year-old woman, who was admitted with sacral decubitus ulcer. She is slated to undergo a bone scan today. No chest pain. No palpitations. No fever. OBJECTIVE: VITAL SIGNS: Pulse 109, blood pressure ntd, respirations 18. CHEST: Clear to auscultation. CARDIOVASCULAR: S1 and S2. ABDOMEN: Soft. NERVOUS SYSTEM: Nonfocal. LABORATORY DATA: Reviewed. ASSESSMENT: 1. Sacral decubitus, stage IV, with failure of outpatient treatment, with Enterococcus faecalis. 2. Rule out osteomyelitis, pending bone scan. 3. Secondary cellulitis and elevated white blood cell count. 4. Hypertension. RECOMMENDATIONS: Recommend to continue current medications and symptomatic treatment. Otherwise, at this time, I recommend to closely monitor, bone scan, Surgical evaluation, antibiotics. Further recommendations to follow. CLIF / DEBI: [id number] / MTDD
[2022-03-08] MEDS: 0.9% NACL WITH KCL 40 MEQ/L 1,000 ML IV SCH ×2 (04:15→21:12)
[2022-03-08 06:52] LABS: African American GFR (CKD) >90 (>60 ml/min/1.73 sqM); Anion Gap 4 mmol/L; Blood Urea Nitrogen 20 mg/dL (7-17); Calcium 7.8 mg/dL (8.4-10.2); Carbon Dioxide 24 mmol/L (22-30); Chloride 105 mmol/L (98-107); Glucose 84 mg/dL (74-99); Magnesium 1.5 mg/dL (1.6-2.3); Non-African American GFR(CKD) >90 (>60 ml/min/1.73 sqM); Potassium 4.4 mmol/L (3.5-5.1); Sodium 133 mmol/L (137-145)
[2022-03-08 06:57] LABS: Vancomycin,Random 21.1 ug/mL
[2022-03-08] MEDS: NYSTATIN 100,000UNIT/GM CREAM 30 GM TUBE TOPICAL SCH ×2 (08:59→21:09)
[2022-03-08] MEDS: TRIAMCINOLONE 0.1% CREAM 80 GM TUBE TOPICAL SCH ×2 (08:59→21:09)
[2022-03-08] MEDS: HEPARIN SODIUM,PORCINE/PF 5,000 UNIT/0.5 ML SYRINGE SQ SCH ×2 (08:59→21:06)
[2022-03-08] MEDS: PRIMIDONE 50 MG TAB PO SCH (09:01)
[2022-03-08] MEDS: BUMETANIDE 1 MG TAB PO SCH (09:01)
[2022-03-08] MEDS: MULTIVITAMINS, THERA 1 EACH TAB PO SCH (09:01)
[2022-03-08] MEDS: PANTOPRAZOLE 40 MG/10 ML VIAL IV SCH (09:01)
[2022-03-08] MEDS: METOPROLOL TARTRATE 25 MG TAB PO SCH ×2 (09:01→21:06)
[2022-03-08] MEDS: LACTOBACILLUS ACIDOPH & BULGAR 1 EACH PACKET PO SCH (09:01)
[2022-03-08] MEDS ORDERED: POTASSIUM CHLORIDE IV ONE ×2 (12:04)
[2022-03-08] MEDS ORDERED: FLUID CONTINUATION IV ONE ×2 (12:04)
[2022-03-08] MEDS ORDERED: LIDOCAINE 2% (PF) 20 MG/ML 5 ML VIAL SQ ONE (12:24)
--- NOTE | 2022-03-08 14:28 | P.PN ---
Subjective Progress Note Date: 03/08/22 CHIEF COMPLAINT: Sacral decubitus ulcer HISTORY OF PRESENT ILLNESS: Patient has a large sacral decubitus ulcer with evidence of tunneling. She is receiving local wound care. Afebrile. Last WBC from 03/06 is 8.3. Wound culture positive for enterococcus faecalis PHYSICAL EXAM: VITAL SIGNS: Reviewed. GENERAL: Well-developed in no acute distress. HEENT: No sclera icterus. Extraocular movements grossly intact. Moist buccal mucosa. Head is atraumatic, normocephalic. ABDOMEN: Soft. Nondistended. Nontender. NEUROLOGIC: Alert and oriented. Cranial nerves II through XII grossly intact. Skin: Large sacral decubitus ulcer with tunneling purulent drainage and tunneling. There is granulation tissue and sloughing ASSESSMENT: 1. 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 Signing provider agrees with the documented findings, assessment, and plan of care. Objective - Vital Signs Vital signs: Vital Signs Temp 97.8 F 03/08/22 07:34 Pulse 82 03/08/22 07:34 Resp 18 03/08/22 07:34 BP 129/70 03/08/22 07:34 Pulse Ox 98 03/08/22 07:34 FiO2 Intake & Output 03/07/22 03/08/22 03/08/22 18:59 06:59 18:59 Intake Total 1100 590 Output Total 2250 700 Balance -1150 -110 Intake: Intake, IV Titration 1100 Amount 0.9% NaCl with KCl 40 Meq 600 /l 1,000 ml @ 50 mls/hr IV .Q20H [facility] Rx#: [id number] Vancomycin 1,500 mg In 500 Sodium Chloride 0.9% 500 ml 500 ml @ 167 mls/hr IVPB ONCE ONE Rx#: [id number] Oral 590 Output: Urine 2250 700 Other: Voiding Method Indwelling Catheter Indwelling Catheter Indwelling Catheter # Bowel Movements 1 1 - Labs CBC & Chem 7: 03/06/22 05:36 03/08/22 06:15 Labs: Abnormal Lab Results - Last 24 Hours (Table) 03/08/22 Range/Units 06:15 Sodium 133 L (137-145) mmol/L BUN 20 H (7-17) mg/dL Calcium 7.8 L (8.4-10.2) mg/dL Magnesium 1.5 L (1.6-2.3) mg/dL Microbiology - Last 24 Hours (Table) 03/03/22 11:10 Blood Culture - Preliminary Blood No Growth after 120 hours 03/03/22 10:55 Blood Culture - Preliminary Blood No Growth after 120 hours
--- NOTE | 2022-03-08 15:48 | IR ---
PICC LINE PLACEMENT: HISTORY: Infection requiring long-term antibiotic therapy PROCEDURE: Ultrasound and fluoroscopic guidance of PICC line placement. STAFF [employer] DEFENSE OFFICER: Dr. Zavaleta COMPLICATIONS: None ANESTHESIA: 1% Lidocaine locally. FINDINGS/TECHNIQUE: The procedure was explained to the patient. The risks, complications, benefits and alternatives were discussed and any questions were answered. Informed consent was obtained. The patient was placed supine on the fluoroscopic table and prepped and draped in the usual sterile [facility] ion. Utilizing a 21 gauge needle and sonographic and fluoroscopic guidance, access in the left basi lic vein was achieved and there is placement of a 0.018 guidewire. The vein is patent. A 4-F. sheat h was placed over the guidewire. The guidewire and dilator were removed and a 4-F. PICC line was darren paramjit through the sheath with the tip at the level of the SVC. The sheath was removed, the catheter wa s flushed and sutured into position. The patient was stable throughout the procedure and remained st able upon discharge from the Department of Radiology. The vein puncture was patent under ultrasound. A hernandez scale image was obtained to document patency of the vein punctured. All elements of the maximal barrier technique were utilized. FLUOROSCOPY TIME: 0.6 minutes IMPRESSION: Successful PICC line placement under ultrasound and fluoroscopic guidance.
--- NOTE | 2022-03-08 15:54 | P.PN ---
Subjective Progress Note Date: 03/08/22 Principal diagnosis: Infected sacral pressure ulcer Patient is a 71 year old female with multiple comorbidities did have decreased mobility mostly bedbound and apparently did have a sacral pressure ulcer which has been there for couple of months now for the patient to follow with [facility] wound care [facility], patient was sent to the ER concerning for one infection and osteomyelitis with a bone fragment the base of the wound per the ER report on today's evaluation that is 03/08/2022, the patient continues to be afebrile, the patient is breathing comfortably on room air, the patient denies chest pain shortness of breath or cough , the patient denies nausea no vomiting no abdominal pain and no worsening pain to the sacral wound area Objective - Vital Signs Vital signs: Vital Signs Temp 97.8 F 03/08/22 07:34 Pulse 82 03/08/22 07:34 Resp 18 03/08/22 07:34 BP 129/70 03/08/22 07:34 Pulse Ox 98 03/08/22 07:34 FiO2 Intake & Output 03/07/22 03/08/22 03/08/22 18:59 06:59 18:59 Intake Total 1100 590 Output Total 2250 700 Balance -1150 -110 Intake: Intake, IV Titration 1100 Amount 0.9% NaCl with KCl 40 Meq 600 /l 1,000 ml @ 50 mls/hr IV .Q20H [facility] Rx#: [id number] Vancomycin 1,500 mg In 500 Sodium Chloride 0.9% 500 ml 500 ml @ 167 mls/hr IVPB ONCE ONE Rx#: [id number] Oral 590 Output: Urine 2250 700 Other: Voiding Method Indwelling Catheter Indwelling Catheter Indwelling Catheter # Bowel Movements 1 1 - Exam GENERAL DESCRIPTION: An elderly female lying in bed in no distress RESPIRATORY SYSTEM: Unlabored breathing , decreased breath sounds at bases HEART: S1 S2 regular rate and rhythm , ABDOMEN: Soft , no tenderness Sacral pressure ulcer currently dressed EXTREMITIES: No edema feet - Labs CBC & Chem 7: 03/06/22 05:36 03/08/22 06:15 Labs: Abnormal Lab Results - Last 24 Hours (Table) 03/08/22 Range/Units 06:15 Sodium 133 L (137-145) mmol/L BUN 20 H (7-17) mg/dL Calcium 7.8 L (8.4-10.2) mg/dL Magnesium 1.5 L (1.6-2.3) mg/dL Microbiology - Last 24 Hours (Table) 03/03/22 10:55 Blood Culture - Preliminary Blood No Growth after 96 hours 03/03/22 11:10 Blood Culture - Preliminary Blood No Growth after 96 hours Assessment and Plan (1) Stage IV pressure ulcer of sacral region Current Visit: Yes Status: Acute Code(s): L89.154 - PRESSURE ULCER OF SACRAL REGION, STAGE 4 SNOMED Code(s): 88068044562494 Plan: 1patient with stage IV sacral pressure ulcer concerning for osteomyelitis and the bone is palpable and we will need to cover for both gram-positive as well as gram-negative pathogen. 2patient with penicillin ALLERGY that would limit the number of antibiotic safety use 3-patient evaluated by general surgery recommending no surgical intervention, bone scan has been suspicious for osteomyelitis of the sacral area 4local wound care to continue with Aquacel silver packing of the wound and Mycolog cream to the surrounding maceration 5- patient local culture did grew Enterococcus faecalis which is a penicillin sensitive however the patient is ALLERGIC to amoxicillin 6- patient continue with vancomycin, and plan is for 6 week course of IV antibiotic therapy on discharge Time with Patient: Less than 30
[2022-03-08] MEDS ORDERED: VANCOMYCIN 1,500 MG in SODIUM CHLORIDE 0.9% 500 ML 500 ML IVPB SCH (21:00)
[2022-03-08 21:48] VITALS: RESP 16
--- NOTE | 2022-03-09 02:20 | PN ---
PROGRESS NOTE DATE OF SERVICE: 03/08/2022 SUBJECTIVE: This is a 71-year-old woman who was admitted with sacral decubitus ulcer. She is being closely monitored at this time. PICC line has been recommended. The bone scan which I reviewed personally showed suspicious sacral osteomyelitis. OBJECTIVE: VITAL SIGNS: Pulse is 82, blood pressure 119/70 respirations 18. CHEST: Clear to auscultation. CARDIOVASCULAR: S1, S2. ABDOMEN: Soft. NERVOUS SYSTEM: No focal deficits. LABORATORY DATA: Reviewed. ASSESSMENT: 1. Sacral decubitus stage IV with failure of outpatient treatment with Enterococcus faecalis with possible osteomyelitis. 2. Secondary cellulitis and elevated WBC. 3. Hypertension. RECOMMENDATIONS AND DISCUSSION: I recommend to continue current management and symptomatic treatment. Closely follow with Dr. Obrien. Prognosis guarded because of multiple complex medical issues. Further recommendations to follow. MMPEDROL / IJN: [id number] /
[2022-03-09] MEDS: BUMETANIDE 1 MG TAB PO SCH (08:35)
[2022-03-09] MEDS: PANTOPRAZOLE 40 MG/10 ML VIAL IV SCH (08:35)
[2022-03-09] MEDS: NYSTATIN 100,000UNIT/GM CREAM 30 GM TUBE TOPICAL SCH (08:36)
[2022-03-09] MEDS: MULTIVITAMINS, THERA 1 EACH TAB PO SCH (08:36)
[2022-03-09] MEDS: METOPROLOL TARTRATE 25 MG TAB PO SCH (08:36)
[2022-03-09] MEDS: LACTOBACILLUS ACIDOPH & BULGAR 1 EACH PACKET PO SCH (08:36)
[2022-03-09] MEDS: TRIAMCINOLONE 0.1% CREAM 80 GM TUBE TOPICAL SCH (08:36)
[2022-03-09] MEDS: HEPARIN SODIUM,PORCINE/PF 5,000 UNIT/0.5 ML SYRINGE SQ SCH (08:36)
[2022-03-09] MEDS: PRIMIDONE 50 MG TAB PO SCH (08:36)
[2022-03-09 11:32] LABS: African American GFR (CKD) >90 (>60 ml/min/1.73 sqM); Non-African American GFR(CKD) >90 (>60 ml/min/1.73 sqM)
[2022-03-09] MEDS: 0.9% NACL WITH KCL 40 MEQ/L 1,000 ML IV SCH (12:35)
[2022-03-09 13:24] VITALS: BP 125/76; PULSE 101; TEMP 98
--- NOTE | 2022-03-09 13:24 | P.PN ---
Subjective Progress Note Date: 03/09/22 CHIEF COMPLAINT: Sacral decubitus ulcer HISTORY OF PRESENT ILLNESS: Patient has a large sacral decubitus ulcer. Patient is sitting up at bedside chair. She reports her pain is controlled. She's tolerating diet. Afebrile. PHYSICAL EXAM: VITAL SIGNS: Reviewed. GENERAL: Well-developed in no acute distress. HEENT: No sclera icterus. Extraocular movements grossly intact. Moist buccal mucosa. Head is atraumatic, normocephalic. ABDOMEN: Soft. Nondistended. Nontender. NEUROLOGIC: Alert and oriented. Cranial nerves II through XII grossly intact. Skin: Large sacral decubitus ulcer with tunneling purulent drainage. There is granulation tissue and sloughing. ASSESSMENT: 1. Large sacral decubitus ulcer PLAN: -Continue local wound care -Continue antibiotics per ID service -No surgical intervention planned -Continue offloading Physician Safety Representative note has been reviewed by physician. Signing provider agrees with the documented findings, assessment, and plan of care. Objective - Vital Signs Vital signs: Vital Signs Temp 98.3 F 03/09/22 07:46 Pulse 81 03/09/22 07:46 Resp 16 03/09/22 07:46 BP 145/79 03/09/22 07:46 Pulse Ox 99 03/09/22 07:46 FiO2 Intake & Output 03/08/22 03/09/22 03/09/22 18:59 06:59 18:59 Intake Total 1200 480 Output Total 2150 250 Balance -950 -250 480 Weight 77.927 kg Intake: Oral 1200 480 Output: Urine 2150 250 Other: Voiding Method Indwelling Catheter Indwelling Catheter Indwelling Catheter - Labs CBC & Chem 7: 03/06/22 05:36 03/09/22 10:21 Labs: Microbiology - Last 24 Hours (Table) 03/03/22 11:10 Blood Culture - Preliminary Blood No Growth after 120 hours 03/03/22 10:55 Blood Culture - Preliminary Blood No Growth after 120 hours
--- NOTE | 2022-03-09 13:58 | P.DS ---
Providers Date of admission: 03/03/22 12:48 Expected date of discharge: 03/09/22 Attending physician: Moisés Koenig Consults: 03/03/22 12:48 Consult Physician Urgent Consulting Provider: Mario Kent Consult Reason/Comments: Sacral ulcer, sepsis Do you want consulting provider notified?: Yes Consult Physician Urgent Consulting Provider: Warren Obrien Consult Reason/Comments: Sacral ulcer, sepsis Do you want consulting provider notified?: Yes Primary care physician: Ramiro Mary Hospital Course: Final diagnosis Sacral decubitus ulcer, stage IV with failure of outpatient treatment with enterococcus faecalis with concerns for sacral osteomyelitis Secondary cellulitis and elevated WBC hypertension Obesity with a BMI of 33.6 GI prophylaxis DVT prophylaxis Full code Discharge disposition Patient is being discharged in a stable condition with guarded prognosis to [facility]. Patient will follow-up with Dr. Ramiro Mary in the outpatient setting upon discharge. Patient is to continue on IV vancomycin with pharmacy to dose and close outpatient follow-up with infectious disease Dr. Obrien as scheduled. Total time taken is greater than 35 minutes. Hospital course This is a 71-year-old female who was recently admitted with extensive sacral decubitus ulcer with suggestive of sacral osteomyelitis and being closely monitored. Patient evaluated by general surgery along with infectious disease during admission. Patient did have positive wound cultures of enterococcus faecalis and will continue on IV vancomycin with pharmacy to dose and close outpatient follow-up of labs to monitor kidney functions and CBC. Currently no reports of chest pain, shortness of breath, or palpitations. Patient is afebrile. No reports of nausea or vomiting and patient is tolerating diet. Patient will be going to [facility] today. Guarded prognosis. Physical exam: Gen: This is a 71-year-old female who is awake, alert and oriented 3, well- developed, well-nourished. HEENT: Head is atraumatic, normocephalic. Pupils equal, round. Sclerae is anicteric. NECK: Supple. No JVD. No lymphadenopathy. No thyromegaly. LUNGS: Clear to auscultation. No wheezes or rhonchi. No intercostal retractions. HEART: Regular rate and rhythm. No murmur. ABDOMEN: Soft. Bowel sounds are present. No masses. No tenderness. EXTREMITIES: No pedal edema. No calf tenderness. NEUROLOGICAL: Patient is awake, alert and oriented x3. Cranial nerves 2 through 12 are grossly intact. Diffusely weak Please refer to medication reconciliation sheet for a list of medications. The impression and plan of care has been dictated by Ashley Pandey, Nurse Practitioner as directed. Dr. Arya MD I have performed a history and examination and MDM of this patient, discussed the same with the dictator, and agree with the dictator's assessment and plan as written ,documented as a scribe. Based on total visit time, I have performed more than 50% of the visit. Patient Condition at Discharge: Fair Plan - Discharge Summary New Discharge Prescriptions: New Heparin Sodium,Porcine [Heparin Sodium] 5,000 unit SQ Q12HR #60 each Nystatin 100,000Unit/gm Cream [Mycostatin Cream] 1 applic TOPICAL BID #1 each Triamcinolone 0.1% Cream [Kenalog 0.1% Cream] 1 applic TOPICAL BID each Pantoprazole [Protonix] 40 mg PO DAILY #30 tab Vancomycin 1,500 mg IVPB Q36H each Continue bisacodyL [Bisacodyl] 10 mg PO DAILY PRN PRN Reason: Constipation Ondansetron [Zofran] 4 mg PO Q12HR PRN PRN Reason: Nausea Metoprolol Tartrate [Lopressor] 25 mg PO BID oxyCODONE HCL 5 mg PO Q6H PRN PRN Reason: Pain Primidone [Mysoline] 50 mg PO DAILY Multivitamins, Thera [Multivitamin (formulary)] 1 tab PO DAILY Magnesium Hydroxide [Milk of Magnesia Concentrate] 7,200 mg PO DAILY PRN PRN Reason: Constipation L.acidoph,Paracasei, B.lactis [Probiotic] 1 cap PO DAILY Bumetanide [BUMEX] 4 mg PO DAILY Discharge Medication List Bumetanide [BUMEX] 4 mg PO DAILY 03/03/22 [History] L.acidoph,Paracasei, B.lactis [Probiotic] 1 cap PO DAILY 03/03/22 [History] Magnesium Hydroxide [Milk of Magnesia Concentrate] 7,200 mg PO DAILY PRN 03/03/22 [History] Metoprolol Tartrate [Lopressor] 25 mg PO BID 03/03/22 [History] Multivitamins, Thera [Multivitamin (formulary)] 1 tab PO DAILY 03/03/22 [History] Ondansetron [Zofran] 4 mg PO Q12HR PRN 03/03/22 [History] Primidone [Mysoline] 50 mg PO DAILY 03/03/22 [History] bisacodyL [Bisacodyl] 10 mg PO DAILY PRN 03/03/22 [History] oxyCODONE HCL 5 mg PO Q6H PRN 03/03/22 [History] Heparin Sodium,Porcine [Heparin Sodium] 5,000 unit SQ Q12HR #60 each 03/09/22 [Rx] Nystatin 100,000Unit/gm Cream [Mycostatin Cream] 1 applic TOPICAL BID #1 each 03/09/22 [Rx] Pantoprazole [Protonix] 40 mg PO DAILY #30 tab 03/09/22 [Rx] Triamcinolone 0.1% Cream [Kenalog 0.1% Cream] 1 applic TOPICAL BID each [Rx] Vancomycin 1,500 mg IVPB Q36H each 03/09/22 [Rx] Follow up Appointment(s)/Referral(s): Ramiro Mary MD [Primary Care Provider] - 1-2 days Warren Obrien MD [STAFF PHYSICIAN] - 1 Week (call [phone] to call and make an appointment) Patient Instructions/Handouts: Heparin (By injection), Pantoprazole (By mouth), How to Prevent Pressure Injuries (DC) Activity/Diet/Wound Care/Special Instructions: Patient is going to [facility] as tolerated Continue offloading and local wound care per surgery and ID recommendations Patient continue on IV antibiotics and has received a PICC line of vancomycin for 6 weeks with pharmacy to dose Recommend close monitoring of labs including CBC and BMP Recommend continue with regular diet Discharge Disposition: TRANSFER TO SNF/ECF
--- NOTE | 2022-03-09 15:08 | P.PN ---
Subjective Progress Note Date: 03/09/22 Principal diagnosis: Infected sacral pressure ulcer Patient is a 71 year old female with multiple comorbidities did have decreased mobility mostly bedbound and apparently did have a sacral pressure ulcer which has been there for couple of months now for the patient to follow with [facility] wound care center, patient was sent to the ER concerning for one infection and osteomyelitis with a bone fragment the base of the wound per the ER report on today's evaluation that is 03/09/2022, the patient continues to be afebrile, the patient is breathing comfortably on room air, the patient denies chest pain shortness of breath or cough , the patient denies nausea no vomiting no abdominal pain and pain to the sacral wound area is currently controlled Objective - Vital Signs Vital signs: Vital Signs Temp 98.3 F 03/09/22 07:46 Pulse 81 03/09/22 07:46 Resp 16 03/09/22 07:46 BP 145/79 03/09/22 07:46 Pulse Ox 99 03/09/22 07:46 FiO2 Intake & Output 03/08/22 03/09/22 03/09/22 18:59 06:59 18:59 Intake Total 1200 480 Output Total 2150 250 Balance -950 -250 480 Weight 77.927 kg Intake: Oral 1200 480 Output: Urine 2150 250 Other: Voiding Method Indwelling Catheter Indwelling Catheter Indwelling Catheter - Exam GENERAL DESCRIPTION: An elderly female lying in bed in no distress RESPIRATORY SYSTEM: Unlabored breathing , decreased breath sounds at bases HEART: S1 S2 regular rate and rhythm , ABDOMEN: Soft , no tenderness Sacral pressure ulcer currently dressed EXTREMITIES: No edema feet - Labs CBC & Chem 7: 03/06/22 05:36 03/09/22 10:21 Labs: Microbiology - Last 24 Hours (Table) 03/03/22 11:10 Blood Culture - Preliminary Blood No Growth after 120 hours 03/03/22 10:55 Blood Culture - Preliminary Blood No Growth after 120 hours Assessment and Plan (1) Stage IV pressure ulcer of sacral region Status: Acute Code(s): L89.154 - PRESSURE ULCER OF SACRAL REGION, STAGE 4 SNOMED Code(s): 07273129705409 Plan: 1patient with stage IV sacral pressure ulcer concerning for osteomyelitis and the bone is palpable and we will need to cover for both gram-positive as well as gram-negative pathogen. 2patient with penicillin ALLERGY that would limit the number of antibiotic safety use 3-patient evaluated by general surgery recommending no surgical intervention, bone scan has been suspicious for osteomyelitis of the sacral area 4local wound care to continue with Aquacel silver packing of the wound and Mycolog cream to the surrounding maceration apply twice daily 5- patient local culture did grew Enterococcus faecalis which is a penicillin sensitive however the patient is ALLERGIC to amoxicillin 6- patient seemed to have shown clinical improvement and will continue with vancomycin pharmacy to dose to finish 6 week course of therapy and close outpatient follow-up Time with Patient: Less than 30
== END 2022-03-09 14:58 | DRG 593 ==
LOC: EC 10:14 → 5NMEDONC 12:48
PROVIDERS: ADMIT Hospitalist; ATTEND Hospitalist
PROC: 02HV33Z Insertion of Infusion Device into Superior Vena Cava, Percutaneous Approach (ICD-10-PCS; principal; 2022-03-08 10:30)
DX: L89.154 Pressure ulcer of sacral region, stage 4 (principal); L03.312 Cellulitis of back [any part except buttock and flank]; M46.28 Osteomyelitis of vertebra, sacral and sacrococcygeal region; B95.2 Enterococcus as the cause of diseases classified elsewhere; D75.0 Familial erythrocytosis; E66.9 Obesity, unspecified; I10 Essential (primary) hypertension; M19.90 Unspecified osteoarthritis, unspecified site; Z68.33 Body mass index [BMI] 33.0-33.9, adult; Z79.2 Long term (current) use of antibiotics; Z79.899 Other long term (current) drug therapy; Z80.0 Family history of malignant neoplasm of digestive organs; Z71.3 Dietary counseling and surveillance; Z96.649 Presence of unspecified artificial hip joint; Z28.310 Unvaccinated for COVID-19; Z88.0 Allergy status to penicillin
CPT/HCPCS: 36415; 36573; 72170; 78315; 80048; 80051; 80053; 80202; 82565; 83605; 83735; 84132; 85025; 85610; 85652; 85730; 86140; 87040; 87070; 87077; 87186; 87205; 93005; 94760; 96361; 96365; 96366; 96367; 96372; 96375; 99285

== ENCOUNTER 2022-05-26 08:58 | Inpatient (IN) | payer MEDICARE, OTHER ==
[2022-05-26] MEDS ORDERED: cefTRIAXone IN SWFI 1,000 MG/10 ML SYRINGE IVP STA (09:50)
[2022-05-26] MEDS ORDERED: VANCOMYCIN IV PER PHARMACY 1 EACH MISC MISCELLANE PRN (09:51)
[2022-05-26 09:55] LABS: Glucose,Whole Blood 171 mg/dL (70-110)
[2022-05-26] MEDS ORDERED: VANCOMYCIN 1,250 MG in SODIUM CHLORIDE 0.9% 250 ML IVPB STA (09:58)
[2022-05-26] MEDS: SODIUM CHLORIDE 0.9% 500 ML 500 ML IV SCH ×2 (10:02→10:15)
[2022-05-26] MEDS: SODIUM CHLORIDE 0.9% 1,000 ML IV SCH ×2 (10:14→16:20)
[2022-05-26 10:28] LABS: Albumin 2.7 g/dL (3.5-5.0); Calcium 8.6 mg/dL (8.4-10.2); Total Bilirubin 1.4 mg/dL (0.2-1.3); Total Protein 5.9 g/dL (6.3-8.2)
[2022-05-26 10:32] LABS: INR 2.4 (<1.2); Partial Thromboplastin Time 22.9 sec (22.0-30.0); Prothrombin Time 23.7 sec (9.0-12.0)
[2022-05-26 10:43] LABS: HCT 51.6 % (34.0-46.0); HGB 16.2 gm/dL (11.4-16.0); Hypochromasia Slight; MCH 30.4 pg (25.0-35.0); MCHC 31.4 g/dL (31.0-37.0); MCV 96.9 fL (80.0-100.0); Mean Platelet Volume 8.2; Platelet Count 166 k/uL (150-450); RBC 5.32 m/uL (3.80-5.40); RDW 15.4 % (11.5-15.5)
--- NOTE | 2022-05-26 10:43 | XR ---
EXAMINATION TYPE: XR chest 1V portable DATE OF EXAM: 05/26/2022 COMPARISON: Chest x-ray December 09, 2021 HISTORY: Fever TECHNIQUE: Single portable frontal view of the chest is obtained. FINDINGS: There is patchy right basilar opacity. Left lung is clear. The cardiac silhouette size is less prominent on current study measuring upper limits of normal without sclerotic change in the aort ic knob. Underlying scoliosis or scoliotic positioning is noted on current study. IMPRESSION: There is new patchy right basilar opacity could reflect atelectasis and/or developing ac [place] infiltrate. Consider progress study.
[2022-05-26 10:47] LABS: Potassium 4.4 mmol/L (3.5-5.1)
--- NOTE | 2022-05-26 10:56 | CT ---
EXAMINATION TYPE: CT abdomen pelvis wo con DATE OF EXAM: 05/26/2022 HISTORY: Sacral decubitus and fever CT DLP: 923.7 mGycm. Automated Exposure Control for Dose Reduction was Utilized. TECHNIQUE: CT scan of the abdomen and pelvis is performed without oral or IV contrast. COMPARISON: NONE FINDINGS: Within the limitations of a non-contrast study, the following observations are made. LUNG BASES: Mild posterior right basilar linear scarring and/or atelectasis. LIVER/GB: Pelvis patient level of the aortic valve. Gallbladder has distended margins without surroun ding fluid or fat stranding.. PANCREAS: Moderate to severe generalized atrophy. SPLEEN: No significant abnormality is seen. ADRENALS: Low dense thickening consistent with benign lipid rich hyperplasia. KIDNEYS: Some cortical thinning in both kidneys. 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 Shook catheter decompresses bladder. BOWEL: No significant abnormality is seen. GENITAL ORGANS: Heterogeneous anteverted uterus with slight lobulation suggesting fibroids. LYMPH NODES: No greater than 1cm abdominal or pelvic lymph nodes are appreciated. OSSEOUS STRUCTURES: Metallic artifact from bilateral hip arthroplasty causes streak artifact limiting evaluation of pelvic structures. OTHER: There is percutaneous drainage catheter within the soft tissue within the posterior pelvis. Th ere is air and debris axial image 60 measuring 4.2 x 2.2 cm extending along the posterior margin of t he sacrum. Part of the distal sacrum and coccyx is likely resected. This extends to the inferior aspe ct of the remaining sacrum sagittal image 58 and axial image 57. This appears to be contiguous with t he percutaneous catheter and suspected debridement cavity. Some ill-defined fluid is also present at this level axial image 49 more superiorly. There is no well-formed thick-walled abscess. IMPRESSION: Posttreatment changes to sacral ulcer are noted as detailed above. Residual inflammation at this level may be present. No well-formed focal fluid collection or abscess seen. Treatment change s extend to the margin of the remnant sacrum.
[2022-05-26] MEDS ORDERED: ONDANSETRON 4 MG TAB PO PRN (11:28)
[2022-05-26] MEDS ORDERED: SENNOSIDES-DOCUSATE SODIUM 1 EACH TAB PO PRN (11:28)
[2022-05-26] MEDS ORDERED: NALOXONE 0.4 MG/ML 1 ML VIAL IV PRN (11:30)
--- NOTE | 2022-05-26 11:35 | P.HPIM ---
History of Present Illness This is a pleasant 71 is old female with multiple medical problems including hypertension, sacral decubitus ulcer stage IV, obesity, She was recently in this facility for infected sacral pressure ulcers and concerning for osteomyelitis and discharged on 03/04/2022 and she was discharged to her retirement at [facility]. She was planning that time to go home from rehab with her . She was discharged on IV vancomycin, Secondary to wound culture growing Enterococcus faecalis x 6 weeks Patient was sent from wound center for a fever 102 and altered mental status. Patient is poor historian and could not provide information because of her altered mentation. CT of the abdomen and pelvis: She has a fever of 502.6 on admission. Rest of Vit[place] looks stable. Labs showing leukocytosis of 12.3 INR is 2.4 Sodium is elevated 152 Creatinine is elevated 1.9 Bilirubin is high at 1.4, liver enzymes slightly elevated 1 AST [address] of the abdomen and pelvis: Posttreatment changes to sacral ulcer with residual inflammation at this level may be present. No well-formed focal fluids IS seen. 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 Mother Additional Family Medical History / Comment(s): Mother had cancer in 4 sites unknown primary. Brother(s) Additional Family Medical History / Comment(s): Patient's 1 brother diagnosed with colon cancer at age 15. One brother after having her bowel surgery due to a blood clot. Patient has one son with genetic mutations for familial polycythemia. Medications and Allergies Home Medications Medication Instructions Recorded Confirmed Type Bumetanide [BUMEX] 4 mg PO DAILY 03/03/22 03/03/22 History Magnesium Hydroxide [Milk of 7,200 mg PO DAILY PRN 03/03/22 03/03/22 History Magnesia Concentrate] Metoprolol Tartrate [Lopressor] 25 mg PO BID 03/03/22 03/03/22 History Multivitamins, Thera [Multivitamin 1 tab PO DAILY 03/03/22 03/03/22 History (formulary)] Ondansetron [Zofran] 4 mg PO Q12HR PRN 03/03/22 03/03/22 History bisacodyL [Bisacodyl] 10 mg PO DAILY PRN 03/03/22 03/03/22 History Scotty Nutritional Treat 290 ml PO DAILY@1300 05/26/22 05/26/22 History Lactobacillus Acidophilus 1 tab PO DAILY 05/26/22 05/26/22 History [Acidophilus] Mylanta 30 ml PO Q3H PRN 05/26/22 05/26/22 History Sennosides/Docusate Sodium [Senna 1 tab PO DAILY 05/26/22 05/26/22 History Plus 8.6-50 mg Tablet] Sucralfate [Carafate] 1 gm PO BID 05/26/22 05/26/22 History Allergies Allergy/AdvReac Type Severity Reaction Status Date / Time montelukast [From Singulair] Allergy Diarrhea Verified 05/26/22 09:10 acetaminophen [From Tylenol] AdvReac Abdominal Verified 05/26/22 09:10 Pain amoxicillin AdvReac Unknown Verified 05/26/22 09:10 Physical Exam Vitals: Vital Signs Temp Pulse Resp BP Pulse Ox 05/26/22 09:42 102.6 F H 130 H 137/96 97 05/26/22 09:10 101.5 F H 41 L 16 129/67 98 Intake and Output 05/25/22 05/26/22 05/26/22 22:59 06:59 14:59 Other: Weight 73.936 kg -GENERAL: The patient is awake but looks confused, she has good attention span and she keep following me with her head and eyes she does not answer questions or follow commands HEENT: Pupils are round and equally reacting to light. EOMI. No scleral icterus. No conjunctival pallor. Normocephalic, atraumatic. No pharyngeal erythema. No thyromegaly. CARDIOVASCULAR: S1 and S2 present. No murmurs, rubs, or gallops. PULMONARY: Chest is clear to auscultation, no wheezing or crackles. ABDOMEN: Soft, nontender, nondistended, normoactive bowel sounds. No palpable organomegaly. -MUSCULOSKELETAL: No joint swelling or deformity. Unstageable sacral pressure ulcer EXTREMITIES: No cyanosis, clubbing, or pedal edema. NEUROLOGICAL: Gross neurological examination did not reveal any focal deficits. SKIN: No rashes. no petechiae. Results CBC & Chem 7: 05/26/22 10:06 05/26/22 10:06 Labs: Abnormal Lab Results - Last 24 Hours (Table) 05/26/22 05/26/22 05/26/22 Range/Units 09:54 10:06 10:06 WBC 12.3 H (3.8-10.6) k/uL Hgb 16.2 H (11.4-16.0) gm/dL Hct 51.6 H (34.0-46.0) % PT 23.7 H (9.0-12.0) sec INR 2.4 H (<1.2) Sodium (137-145) mmol/L Chloride (98-107) mmol/L Carbon Dioxide (22-30) mmol/L BUN (7-17) mg/dL Creatinine (0.52-1.04) mg/dL Glucose (74-99) mg/dL POC Glucose (mg/dL) 171 H (70-110) mg/dL Plasma Lactic Acid Raymond (0.7-2.0) mmol/L Total Bilirubin (0.2-1.3) mg/dL AST (14-36) U/L ALT (4-34) U/L Alkaline Phosphatase (38-126) U/L Total Protein (6.3-8.2) g/dL Albumin (3.5-5.0) g/dL 05/26/22 05/26/22 Range/Units 10:06 10:06 WBC (3.8-10.6) k/uL Hgb (11.4-16.0) gm/dL Hct (34.0-46.0) % PT (9.0-12.0) sec INR (<1.2) Sodium 152 H (137-145) mmol/L Chloride 115 H (98-107) mmol/L Carbon Dioxide 16 L (22-30) mmol/L BUN 78 H (7-17) mg/dL Creatinine 1.97 H (0.52-1.04) mg/dL Glucose 160 H (74-99) mg/dL POC Glucose (mg/dL) (70-110) mg/dL Plasma Lactic Acid Raymond 6.7 H* (0.7-2.0) mmol/L Total Bilirubin 1.4 H (0.2-1.3) mg/dL AST 41 H (14-36) U/L ALT 36 H (4-34) U/L Alkaline Phosphatase 150 H (38-126) U/L Total Protein 5.9 L (6.3-8.2) g/dL Albumin 2.7 L (3.5-5.0) g/dL Assessment and Plan Assessment: Infected sacral pressure ulcer Sepsis with fever and leukocytosis secondary to above,vs others Hypernatremia Acute kidney injury Severe dehydration, present on admission Altered mental status most likely metabolic encephalopathy secondary to above Plan: IV fluids currently on normal saline with 130 mL/h Continue with an antibiotic, currently on IV vancomycin and ceftriaxone Infectious disease consult Hold Bumex Labs and medication were reviewed.. Continue same treatment. Continue with symptomatic treatment. Resume home medication. Monitor labs and vitals. DVT and GI prophylaxis. Further recommendations as per clinical course of the patient DVT prophylaxis: Subcutaneous heparin GI Prophylaxis: Ppi PT/OT: deferred Prognosis is guarded
--- NOTE | 2022-05-26 11:40 | ED ---
General Adult HPI - General Chief complaint: Altered Mental Status Stated complaint: Fever, 102.7 sent from wound care Time Seen by Provider: 05/26/22 09:28 Source: family, RN notes reviewed, old records reviewed Mode of arrival: wheelchair Limitations: altered mental status - History of Present Illness Initial comments: 71-year-old female presented from the wound care center with fever and altered mental status. History is obtained from review of the medical record and [facility] documentation. Patient is bedbound has a history of decubitus ulc er with wound VAC. She was noted to be febrile at 102. Remainder of history is quite limited and the patient is not able to contribute at all. Review the medical record does reveal that she is a no code no CPR - Related Data Home Medications Medication Instructions Recorded Confirmed Bumetanide [BUMEX] 4 mg PO DAILY 03/03/22 05/26/22 Magnesium Hydroxide [Milk of 7,200 mg PO DAILY PRN 03/03/22 05/26/22 Magnesia Concentrate] Metoprolol Tartrate [Lopressor] 25 mg PO BID 03/03/22 05/26/22 Multivitamins, Thera [Multivitamin 1 tab PO DIRECTED 03/03/22 05/26/22 (formulary)] Ondansetron [Zofran] 4 mg PO Q12HR PRN 03/03/22 05/26/22 bisacodyL [Bisacodyl] 10 mg PO DAILY PRN 03/03/22 05/26/22 Scotty Nutritional Treat 290 ml PO DAILY@1300 05/26/22 05/26/22 Lactobacillus Acidophilus 1 tab PO DAILY 05/26/22 05/26/22 [Acidophilus] Mylanta 30 ml PO Q3H PRN 05/26/22 05/26/22 Sennosides/Docusate Sodium [Senna 1 tab PO DAILY 05/26/22 05/26/22 Plus 8.6-50 mg Tablet] Sucralfate [Carafate] 1 gm PO BID 05/26/22 05/26/22 Allergies Allergy/AdvReac Type Severity Reaction Status Date / Time montelukast [From Singulair] Allergy Diarrhea Verified 05/26/22 09:10 acetaminophen [From Tylenol] AdvReac Abdominal Verified 05/26/22 09:10 Pain amoxicillin AdvReac Unknown Verified 05/26/22 09:10 Review of Systems ROS Statement: Those systems with pertinent positive or pertinent negative responses have been documented in the HPI. ROS Other: All systems not noted in ROS Statement are negative. 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 Mother Additional Family Medical History / Comment(s): Mother had cancer in 4 sites unknown primary. Brother(s) Additional Family Medical History / Comment(s): Patient's 1 brother diagnosed with colon cancer at age 15. One brother after having her bowel surgery due to a blood clot. Patient has one son with genetic mutations for familial polycythemia. General Exam Limitations: no limitations General appearance: lethargic, in distress Head exam: Present: atraumatic, normocephalic ENT exam: Present: mucous membranes dry Respiratory exam: Present: other (Tachypnea). Absent: respiratory distress Cardiovascular Exam: Present: normal rhythm, tachycardia GI/Abdominal exam: Absent: distended, tenderness Rectal exam: Present: other (Sacral wound VAC with purulent drainage) External exam: Present: other (Shook catheter with purulent urine) Neurological exam: Present: other (Unable to complete neurologic exam due to altered mental status and ability). Absent: motor sensory deficit Skin exam: Present: warm Course Vital Signs 05/26/22 05/26/22 09:10 09:42 Temperature 101.5 F H 102.6 F H Pulse Rate 41 L 130 H Respiratory 16 Rate Blood Pressure 129/67 137/96 O2 Sat by Pulse 98 97 Oximetry EKG Findings - EKG Results: EKG: interpreted by ERMD (EKG: Tremor artifact limiting assessment, possible atrial fibrillation with RVR, rate of 112, QRS duration 84, QTC 388, no ST segment elevation, very limited exam.) Medical Decision Making - Medical Decision Making Was pt. sent in by a medical professional or institution (Dr., PA, SUPERVIS[employer], urgent care, hospital, or fci...) When possible be specific @ -ES, sent from wound care Did you speak to anyone other than the patient for history (EMS, parent, family, police, friend...)? What history was obtained from this source @ -Nursing staff and review the medical record Did you review nursing and triage notes (agree or disagree)? Why? @ -I reviewed and agree with nursing and triage notes Were old charts reviewed (outside hosp., previous admission, EMS record, old EKG, old radiological studies, urgent care reports/EKG's, fci records)? Report findings @ -Yes reviewed previous hospital documentation Differential Diagnosis (chest pain, altered mental status, abdominal pain women, abdominal pain men, vaginal bleeding, weakness, fever, dyspnea, syncope, headache, dizziness, GI bleed, back pain, seizure, CVA, palpatations, mental health, musculoskeletal)? @ -Differential Fever: Pneumonia, viral URI, endocarditis, myocarditis, pericarditis, otitis, sinusitis, peritonsillar Abscess, retropharyngeal Abscess, epiglottitis, peritonitis, appendicitis, [place] cystitis, diverticulitis, hepatitis, colitis, UTI, PID, TOA, pyelonephritis, prostatitis, epididymitis, meningitis, encephalit is, pulmonary embolism, CVA, thyroid storm, pancreatitis, adrenal crisis, cavernous sinus thrombosis, this is not meant to be an all-inclusive list. EKG interpreted by me (3pts min.). @ -As above X-rays interpreted by me (1pt min.). @ -X-ray reviewed agree with radiology interpretation CT interpreted by me (1pt min.). @ -CT of the abdomen pelvis without contrast performed, showing sacral decubitus ulcer with no drainable fluid collection, agree with the radiologist's interpretation. U/S interpreted by me (1pt. min.). @ -None done What testing was considered but not performed or refused? (CT, X-rays, U/S, labs)? Why? @ -None What meds were considered but not given or refused? Why? @ -Serum antipyretics but given the acute kidney injury and ALLERGY to acetaminophen number given Did you discuss the management of the patient with other professionals (professionals i.e. DOTTY Bunn, [employer], lab, RT, psych nurse, sr. social media & mobile manager, clinical auditor, teacher, staff command and control officer, case management coordinator)? Give summary @ -Case discussed with the admitting physician Dr. caballero Was smoking cessation discussed for >3mins.? @ -No Was critical care preformed (if so, how long)? @ -Yes see above Were there social determinants of health that impacted care today? How? (Homelessness, low income, unemployed, alcoholism, drug addiction, transportation, low edu. Level, literacy, decrease access to med. care, nursing home, rehab)? @ -No Was there de-escalation of care discussed even if they declined (Discuss DNR or withdrawal of care, Hospice)? DNR status @ -Patient is a DO NOT RESUSCITATE What co-morbidities impacted this encounter? (DM, HTN, Smoking, COPD, CAD, Cancer, CVA, ARF, Chemo, Hep., AIDS, mental health diagnosis, sleep apnea, morbid obesity)? @ -Multiple comorbidities affecting the patient's evaluation. Bedbound, hypertension, severe debility Was patient admitted / discharged? Hospital course, mention meds given and route, prescriptions, significant lab abnormalities, going to OR and other pertinent info. @ -Patient was admitted to this hospital for sepsis with multiple sources including decubitus ulcer with wound VAC, urinary tract infection, possible pneumonia. She was given vancomycin and ceftriaxone in the emergency department. Blood cultures are pending. She has significant lab abnormalities including leukocytosis, acute renal failure with a creatinine of 1.97 and a lactic acid of 6.7. She is in severe sepsis. She'll be admitted to monitored bed. She is a DO NOT RESUSCITATE. Undiagnosed new problem with uncertain prognosis? @ -No Drug Therapy requiring intensive monitoring for toxicity (Heparin, Nitro, Insulin, Cardizem)? @ -No Were any procedures done? @ -No Diagnosis/symptom? @ -Sepsis Acute, or Chronic, or Acute on Chronic? @ -Acute Uncomplicated (without systemic symptoms) or Complicated (systemic symptoms)? @ -Complicated, severe sepsis with tissue hyperperfusion Side effects of treatment? @ -No Exacerbation, Progression, or Severe Exacerbation? @ -No Poses a threat to life or bodily function? How? (Chest pain, USA, NM, pneumonia, PE, COPD, DKA, ARF, appy, cholecystitis, CVA, Diverticulitis, Homicidal, Suicidal, threat to staff... and all critical care pts) @ -Patient has severe sepsis with concern for end organ dysfunction including renal failure and lactic acidosis. Possible progression including multiorgan failure and - Lab Data Result diagrams: 05/26/22 10:06 05/26/22 10:06 Lab Results 05/26/22 05/26/22 05/26/22 Range/Units 09:54 10:06 10:06 WBC 12.3 H (3.8-10.6) k/uL RBC 5.32 (3.80-5.40) m/uL Hgb 16.2 H (11.4-16.0) gm/dL Hct 51.6 H (34.0-46.0) % MCV 96.9 (80.0-100.0) fL MCH 30.4 (25.0-35.0) pg MCHC 31.4 (31.0-37.0) g/dL RDW 15.4 (11.5-15.5) % Plt Count 166 (150-450) k/uL MPV 8.2 Hypochromasia Slight PT 23.7 H (9.0-12.0) sec INR 2.4 H (<1.2) APTT 22.9 (22.0-30.0) sec Sodium (137-145) mmol/L Potassium (3.5-5.1) mmol/L Chloride (98-107) mmol/L Carbon Dioxide (22-30) mmol/L Anion Gap mmol/L BUN (7-17) mg/dL Creatinine (0.52-1.04) mg/dL Est GFR (CKD-EPI)AfAm (>60 ml/min/1.73 sqM) Est GFR (CKD-EPI)NonAf (>60 ml/min/1.73 sqM) Glucose (74-99) mg/dL POC Glucose (mg/dL) 171 H (70-110) mg/dL POC Glu Gardening Instructor ID Humera Quinn Plasma Lactic Acid Raymond (0.7-2.0) mmol/L Calcium (8.4-10.2) mg/dL Total Bilirubin (0.2-1.3) mg/dL AST (14-36) U/L ALT (4-34) U/L Alkaline Phosphatase (38-126) U/L Total Protein (6.3-8.2) g/dL Albumin (3.5-5.0) g/dL 05/26/22 05/26/22 Range/Units 10:06 10:06 WBC (3.8-10.6) k/uL RBC (3.80-5.40) m/uL Hgb (11.4-16.0) gm/dL Hct (34.0-46.0) % MCV (80.0-100.0) fL MCH (25.0-35.0) pg MCHC (31.0-37.0) g/dL RDW (11.5-15.5) % Plt Count (150-450) k/uL MPV Hypochromasia PT (9.0-12.0) sec INR (<1.2) APTT (22.0-30.0) sec Sodium 152 H (137-145) mmol/L Potassium 4.4 (3.5-5.1) mmol/L Chloride 115 H (98-107) mmol/L Carbon Dioxide 16 L (22-30) mmol/L Anion Gap 21 mmol/L BUN 78 H (7-17) mg/dL Creatinine 1.97 H (0.52-1.04) mg/dL Est GFR (CKD-EPI)AfAm 29 (>60 ml/min/1.73 sqM) Est GFR (CKD-EPI)NonAf 25 (>60 ml/min/1.73 sqM) Glucose 160 H (74-99) mg/dL POC Glucose (mg/dL) (70-110) mg/dL POC Glu Gardening Instructor ID Plasma Lactic Acid Raymond 6.7 H* (0.7-2.0) mmol/L Calcium 8.6 (8.4-10.2) mg/dL Total Bilirubin 1.4 H (0.2-1.3) mg/dL AST 41 H (14-36) U/L ALT 36 H (4-34) U/L Alkaline Phosphatase 150 H (38-126) U/L Total Protein 5.9 L (6.3-8.2) g/dL Albumin 2.7 L (3.5-5.0) g/dL Critical Care Time Critical Care Time: Yes Total Critical Care Time: 35 Disposition Clinical Impression: Sepsis, Stage IV pressure ulcer of sacral region Disposition: ADMITTED IP TO THIS [facility] Condition: Serious Is patient prescribed a controlled substance at d/c from ED?: No Referrals: Ramiro Mary MD [Primary Care Provider] - 1-2 days Time of Disposition: 11:40
[2022-05-26 12:18] LABS: Appearance,Urine Turbid (Clear); Bacteria,Urine Moderate /hpf; Bilirubin,Urine 1+ (Negative); Blood,Urine Negative (Negative); Color,Urine Red; Glucose,Urine (UA) Negative (Negative); Ketones,Urine Negative (Negative); Leukocyte Esterase,Urine Large (Negative); Mucus,Urine Moderate /hpf; Nitrite,Urine Positive (Negative); PH, Urine 8.5 (5.0-8.0); Protein,Urine 3+ (Negative); RBC,Urine 6 /hpf (0-5); Specific Gravity,Urine 1.016 (1.001-1.035); Squamous Epithelial Cell,Urine 12 /hpf (0-4); Triple Phosphate Crystal,Urine Many /hpf; WBC,Urine 41 /hpf (0-5)
[2022-05-26 12:36] LABS: Neutrophils % (M) 86 %; Nucleated Red Blood Cells 5 /100 WBC (0-0); Total Cells Counted 100
[2022-05-26 12:37] LABS: Lymphocytes # (M) 0.89 k/uL (1.0-4.8); Monocytes # (M) 0.67 k/uL (0-1.0); Neutrophils # (M) 9.55 k/uL (1.3-7.7); WBC 11.1 k/uL (3.8-10.6)
[2022-05-26] MEDS ORDERED: cloNIDine 0.2 MG/24HR PATCH TRANSDERM SCH (13:30)
[2022-05-26] MEDS: PANTOPRAZOLE 40 MG/10 ML VIAL IVP SCH (13:33)
[2022-05-26] MEDS ORDERED: DILTIAZEM DRIP BOLUS FROM BAG 1 MG SOLN IV ONE (13:37)
[2022-05-26] MEDS ORDERED: LORazepam 2 MG/ML INJ IV STA (13:40)
[2022-05-26] MEDS ORDERED: DILTIAZEM 125 MG in SODIUM CHLORIDE 0.9% 100 ML IV SCH (13:45)
[2022-05-26] MEDS ORDERED: DEXTROSE 5% IN WATER 250 ML with AMIODARONE 300 MG IV ONE (15:17)
[2022-05-26] MEDS ORDERED: AMIODARONE 360 MG in DEXTROSE 5% IN WATER 200 ML IV ONE ×4 (15:20→16:00)
[2022-05-26] MEDS ORDERED: DEXTROSE 5% IN WATER 100 ML with AMIODARONE 150 MG IV ONE (15:50)
[2022-05-26 16:39] LABS: Appearance,Urine Cloudy (Clear); Bacteria,Urine Few /hpf; Bilirubin,Urine Negative (Negative); Blood,Urine Moderate (Negative); Color,Urine Yellow; Glucose,Urine (UA) Negative (Negative); Hyaline Casts,Urine 4 /lpf (0-2); Ketones,Urine Negative (Negative); Leukocyte Esterase,Urine Large (Negative); Mucus,Urine Rare /hpf; Nitrite,Urine Negative (Negative); PH, Urine 6.5 (5.0-8.0); Protein,Urine Trace (Negative); RBC,Urine 13 /hpf (0-5); Specific Gravity,Urine 1.011 (1.001-1.035); Squamous Epithelial Cell,Urine 4 /hpf (0-4); Urobilinogen,Urine <2.0 mg/dL (<2.0); WBC,Urine 148 /hpf (0-5)
[2022-05-26] MEDS: METOPROLOL TARTRATE 25 MG TAB PO SCH (21:24)
[2022-05-26] MEDS: HEPARIN SODIUM,PORCINE/PF 5,000 UNIT/0.5 ML SYRINGE SQ SCH (21:25)
[2022-05-26] MEDS ORDERED: AMIODARONE 450 MG in DEXTROSE 5% IN WATER 250 ML IV SCH ×2 (22:00)
--- NOTE | 2022-05-26 22:22 | P.CONS ---
History of Present Illness - Reason for Consult Consult date: 05/26/22 fever Requesting physician: Bg E Sheet - Chief Complaint Fever x 1 day - History of Present Illness Patient is a 71-year-old female with multiple comorbidities and [facility]dc resident patient was admitted to this facility in February 2022 with worsening wound to the sacral area patient did have a positive bone scan suspicious for osteomyelitis of the sacral area local culture positive for Enterococcus faecalis surgical team saw the patient recommending no surgical intervention patient did get a PICC line and completed a 6-week course of IV antibiotic therapy followed by oral antibiotics patient presented to the wound care center today for local wound care with the patient was noticed to have fever and mental status changes and the patient was sent to the ER for further evaluation on arrival to the ER patient did have a fever of 101.5 degrees Fahr enheit and the patient was tachycardic did have elevated white count with a left shift BUN/creatinine has been mildly elevated elevated lactic acid level enzymes are elevated did have a positive UA however the patient however chronic indwelling Shook catheter patient did have a chest x-ray which shows new patchy right basilar opacity could reflect atelectasis or developing acute infiltrate abdominal pelvis CT hearing diabetes axial images posterior margin of the sacrum part of the distal sacrum coccyx likely resected no evidence of any abscess patient was started on vancomycin and Rocephin infectious disease was consulted for further management of antibiotic therapy most information has been obtained from review the chart talking to the nursing staff and the patient did not provide any history of the history of any nausea vomiting or diarrhea son was at the bedside however he did not have too much information about her mother recent condition or the reason for presentation to the hospital Review of Systems Positive points has been mentioned in HPI complete review could not be obtained because of his underlying mental status Past Medical History Past Medical History: Hypertension Additional Past Medical History / Comment(s): 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 Mother Additional Family Medical History / Comment(s): Mother had cancer in 4 sites unknown primary. Brother(s) Additional Family Medical History / Comment(s): Patient's 1 brother diagnosed with colon cancer at age 15. One brother after having her bowel surgery due to a blood clot. Patient has one son with genetic mutations for familial polycythemia. Medications and Allergies Home Medications Medication Instructions Recorded Confirmed Type Metoprolol Tartrate [Lopressor] 25 mg PO BID 03/03/22 05/31/22 History Multivitamins, Thera [Multivitamin 1 tab PO DIRECTED 03/03/22 05/31/22 History (formulary)] Ondansetron [Zofran] 4 mg PO Q12HR PRN 03/03/22 05/31/22 History Mylanta 30 ml PO Q3H PRN 05/26/22 05/31/22 History Collagenase [Santyl Ointment] 1 applic TOPICAL DAILY 05/31/22 05/31/22 History Dakin's Solution 0.25% 1 applic TOPICAL TUTHSA 05/31/22 05/31/22 History Magnesium Hydroxide [Milk of 1,200 mg PO DAILY PRN 05/31/22 05/31/22 History Magnesia] Nystatin [Nystatin Oral Susp] 500,000 unit PO QID 05/31/22 05/31/22 History oxyCODONE HCL [OxyIR] 5 mg PO Q6H PRN 05/31/22 05/31/22 History Allergies Allergy/AdvReac Type Severity Reaction Status Date / Time montelukast [From Singulair] Allergy Diarrhea Verified 05/31/22 07:49 acetaminophen [From Tylenol] AdvReac Abdominal Verified 05/31/22 07:49 Pain amoxicillin AdvReac Unknown Verified 05/31/22 07:49 Physical Exam Vitals: Vital Signs Temp Pulse Resp BP Pulse Ox 05/26/22 11:30 112 H 24 133/100 100 05/26/22 11:00 116 H 24 124/45 100 05/26/22 10:30 110 H 24 152/105 100 05/26/22 10:00 126 H 24 137/96 100 05/26/22 09:42 102.6 F H 130 H 137/96 97 05/26/22 09:10 101.5 F H 41 L 16 129/67 98 Intake and Output 05/25/22 05/26/22 05/26/22 22:59 06:59 14:59 Other: Weight 73.936 kg GENERAL DESCRIPTION: Elderly female lying in bed, no distress. No tachypnea or accessory muscle of respiration use. HEENT: Shows Pallor , no scleral icterus. Oral mucous membrane is dry. NECK: Trachea central, no thyromegaly. LUNGS: Unlabored breathing. Decreased breath sound the bases. HEART: S1, S2, regular rate and rhythm. No loud murmur ABDOMEN: Soft, no tenderness , guarding or rigidity, no organomegaly EXTREMITIES: No edema of feet. SKIN: No rash, no masses palpable. Patient did have a stage IV sacral pressure ulcer with the bone palpable deep culture were obtained NEUROLOGICAL: The patient is awake, but nonverbal orientation could not be determined Results CBC & Chem 7: 05/27/22 07:41 05/28/22 07:01 Labs: Abnormal Lab Results - Last 24 Hours (Table) 05/26/22 05/26/22 05/26/22 Range/Units 09:54 10:06 10:06 WBC 11.1 H (3.8-10.6) k/uL Hgb 16.2 H (11.4-16.0) gm/dL Hct 51.6 H (34.0-46.0) % Neutrophils # (Manual) 9.55 H (1.3-7.7) k/uL Lymphocytes # (Manual) 0.89 L (1.0-4.8) k/uL Nucleated RBCs 5 H (0-0) /100 WBC PT 23.7 H (9.0-12.0) sec INR 2.4 H (<1.2) Sodium (137-145) mmol/L Chloride (98-107) mmol/L Carbon Dioxide (22-30) mmol/L BUN (7-17) mg/dL Creatinine (0.52-1.04) mg/dL Glucose (74-99) mg/dL POC Glucose (mg/dL) 171 H (70-110) mg/dL Plasma Lactic Acid Raymond (0.7-2.0) mmol/L Total Bilirubin (0.2-1.3) mg/dL AST (14-36) U/L ALT (4-34) U/L Alkaline Phosphatase (38-126) U/L Total Protein (6.3-8.2) g/dL Albumin (3.5-5.0) g/dL Urine Appearance (Clear) Urine pH (5.0-8.0) Urine Protein (Negative) Urine Nitrite (Negative) Urine Bilirubin (Negative) Ur Leukocyte Esterase (Negative) Urine RBC (0-5) /hpf Urine WBC (0-5) /hpf Ur Squamous Epith Cells (0-4) /hpf Triple Phos Crystals (None) /hpf Urine Bacteria (None) /hpf Urine Mucus (None) /hpf 05/26/22 05/26/22 05/26/22 Range/Units 10:06 10:06 10:06 WBC (3.8-10.6) k/uL Hgb (11.4-16.0) gm/dL Hct (34.0-46.0) % Neutrophils # (Manual) (1.3-7.7) k/uL Lymphocytes # (Manual) (1.0-4.8) k/uL Nucleated RBCs (0-0) /100 WBC PT (9.0-12.0) sec INR (<1.2) Sodium 152 H (137-145) mmol/L Chloride 115 H (98-107) mmol/L Carbon Dioxide 16 L (22-30) mmol/L BUN 78 H (7-17) mg/dL Creatinine 1.97 H (0.52-1.04) mg/dL Glucose 160 H (74-99) mg/dL POC Glucose (mg/dL) (70-110) mg/dL Plasma Lactic Acid Raymond 6.7 H* (0.7-2.0) mmol/L Total Bilirubin 1.4 H (0.2-1.3) mg/dL AST 41 H (14-36) U/L ALT 36 H (4-34) U/L Alkaline Phosphatase 150 H (38-126) U/L Total Protein 5.9 L (6.3-8.2) g/dL Albumin 2.7 L (3.5-5.0) g/dL Urine Appearance Turbid H (Clear) Urine pH 8.5 H (5.0-8.0) Urine Protein 3+ H (Negative) Urine Nitrite Positive H (Negative) Urine Bilirubin 1+ H (Negative) Ur Leukocyte Esterase Large H (Negative) Urine RBC 6 H (0-5) /hpf Urine WBC 41 H (0-5) /hpf Ur Squamous Epith Cells 12 H (0-4) /hpf Triple Phos Crystals Many H (None) /hpf Urine Bacteria Moderate H (None) /hpf Urine Mucus Moderate H (None) /hpf Assessment and Plan (1) Sacral osteomyelitis Status: Acute Code(s): M46.28 - OSTEOMYELITIS OF VERTEBRA, SACRAL AND SACROCOCCYGEAL REGION SNOMED Code(s): 909455580 (2) Sepsis Status: Acute Code(s): A41.9 - SEPSIS, UNSPECIFIED ORGANISM SNOMED Code(s): 89749700 Plan: 1patient presented to hospital with sepsis in this patient who did have a fever elevated white count tachycardia source is likely infected sacral pressure ulcer as the patient was not noticed to have the bone palpable at the base of the wound and some fragmentation previous culture positive for Enterococcus faecalis could be gram-positive or gram-negative pathogen plus minus component of catheter associated tract infection. 2penicillin allergy through limited number of antibiotics safe to use. 3Foley catheter should be changed and urine culture from the new [place] discussed with the RN. 4deep culture has been obtained from the sacral area to guide further antibiotic therapy. 5renal insufficiency high risk of nephrotoxicity. 6patient to continue with the vancomycin with careful monitoring of the trough however switch Rocephin to cefepime for better gram-negative coverage We will follow on clinical condition and cultures to further adjust medication if needed Thank you for this consultation we will follow the patient along with you Time with Patient: Greater than 30
[2022-05-27] MEDS: SODIUM CHLORIDE 0.9% 1,000 ML IV SCH ×3 (03:15→14:14)
[2022-05-27 08:10] LABS: Anisocytosis Slight; Basophils % (A) 0 %; Eosinophils % (A) 0 %; HCT 43.2 % (34.0-46.0); HGB 13.3 gm/dL (11.4-16.0); Hypochromasia Slight; Lymphocytes # (A) 1.9 k/uL (1.0-4.8); Lymphocytes % (A) 16 %; MCH 29.9 pg (25.0-35.0); MCHC 30.8 g/dL (31.0-37.0); Mean Platelet Volume 8.8; Monocytes # (A) 0.4 k/uL (0-1.0); Monocytes % (A) 4 %; Neutrophils # (A) 9.3 k/uL (1.3-7.7); Neutrophils % (A) 79 %; Platelet Count 104 k/uL (150-450); RBC 4.46 m/uL (3.80-5.40); WBC 11.8 k/uL (3.8-10.6)
[2022-05-27 08:38] LABS: Calcium 7.3 mg/dL (8.4-10.2)
[2022-05-27 08:43] LABS: Potassium 2.5 mmol/L (3.5-5.1)
[2022-05-27] MEDS ORDERED: Potassium Replacement Protocol 1 EACH MISC MISCELLANE PRN (08:46)
[2022-05-27] MEDS ORDERED: VANCOMYCIN 1,250 MG in SODIUM CHLORIDE 0.9% 250 ML IVPB ONE (09:00)
[2022-05-27] MEDS: POTASSIUM CHLORIDE 20 MEQ in WATER FOR INJECTION 1 100ML.BAG IVPB SCH ×3 (09:27→14:14)
[2022-05-27] MEDS: METOPROLOL TARTRATE 25 MG TAB PO SCH ×2 (09:32→21:26)
[2022-05-27] MEDS: HEPARIN SODIUM,PORCINE/PF 5,000 UNIT/0.5 ML SYRINGE SQ SCH ×2 (09:33→21:27)
[2022-05-27] MEDS: PANTOPRAZOLE 40 MG/10 ML VIAL IVP SCH (09:33)
[2022-05-27] MEDS: CEFEPIME 2 GM in SODIUM CHLORIDE 0.9% 100 ML IVPB SCH ×2 (09:44→21:26)
[2022-05-27] MEDS ORDERED: POTASSIUM CHLORIDE ER 20 MEQ TAB.ER PO SCH (10:00)
--- NOTE | 2022-05-27 10:19 | P.CONS ---
History of Present Illness - Reason for Consult Consult date: 05/27/22 wound care - History of Present Illness This is a 71-year-old patient known to the wound care center with at the wound care center yesterday and sent on for evaluation due to decreased level of consciousness.Original cause of wound was Pressure Injury. The date acquired was: 01/11/2022. The wound has been in treatment 11 weeks. The wound is currently classified as a Category/Stage IV wound with etiology of Pressure Ulcer and is located on the Medial Sacrum. The wound measures 4.7cm length x 1.8cm width x 4cm depth; 6.644cm^2 area and 26.578cm^3 volume. There is bone, Fat Layer (Subcutaneous Tissue), and fascia exposed. There is no tunneling noted, however, there is undermining starting at 12:00 and ending at 12:00 with a maximum distance of 4.5cm. There is a large amount of serosanguineous drainage noted. Foul odor after cleansing was noted. The wound margin is well defined and not attached to the wound base. There is large (67-100%) red, pink granulation within the wound bed. There is a small (1-33%) amount of necrotic tissue within the wound bed including Adherent Slough. The periwound skin appearance had no abnormalities noted for moisture. The periwound skin appearance had no abnormalities noted for color. The periwound skin appearance exhibited: Excoriation, Scarring. The periwound skin appearance did not exhibit: Callus, Induration, Rash. Periwound temperature was noted as No Abnormality. The per iwound has tenderness on palpation. Original cause of wound was Pressure Injury. The date acquired was: 03/22/2022. The wound has been in treatment 6 weeks. The wound is currently classified as a Category/Stage III wound with etiology of Pressure Ulcer and is located on the Right Calcaneus. The wound measures 2.5cm length x 3.8cm width x 1cm depth; 7.461cm^2 area and 7.461cm^3 volume. There is Fat Layer (Subcutaneous Tissue) exposed. There is no tunneling or undermining noted. There is a large amount of serosanguineous drainage noted. The wound margin is flat and intact. There is small (1-33%) pink granulation within the wound bed. There is a large (67-100%) amount of necrotic tissue within the wound bed including Adherent Slough. The periwound skin appearance did not exhibit: Callus, Crepitus, Excoriation, Induration, Rash, Scarring, Dry/Scaly, Maceration, Atrophie [place], Cyanosis, Ecchymosis, Hemosiderin Staining, Mottled, Pallor, Rubor, Erythema. Original cause of wound was Not Known. The date acquired was: 04/14/2022. The wound has been in treatment 5 weeks. The wound is currently classified as a Category/Stage II wound with etiology of Pressure Ulcer and is located on the Left,Lateral Lower Leg. The wound measures 1.5cm length x 0.8cm width x 0.8cm depth; 0.942cm^2 area and 0.754cm^3 volume. There is Fat Layer (Subcutaneous Tissue) exposed. There is no tunneling or undermining noted. There is a medium amount of serosanguineous drainage noted. The wound margin is flat and intact. There is small (1-33%) pink granulation within the wound bed. There is a large (67-100%) amount of necrotic tissue within the wound bed including Adherent Slough. The periwound skin appearance exhibited: Erythema. The periwound skin appearance did not exhibit: Callus, Crepitus, Excoriation, Induration, Rash, Scarring, Dry/Scaly, Maceration, Atrophie [place], Cyanosis, Ecchymosis, Hemosiderin Staining, Mottled, Pallor, Rubor. The surrounding wound skin color is noted with erythema which is circumferential. Periwound temperature was noted as No Abnormality. The periwound has tenderness on palpation. Original cause of wound was Pressure Injury. The date acquired was: 05/16/2022. The wound is currently classified as a Full Thickness Without Exposed Support Structures wound with etiology of To be determined and is located on the Right Gluteal fold. The wound measures 0.7cm length x 0.8cm width x 0.1cm depth; 0.44cm^2 area and 0.044cm^3 volume. The wound is limited to skin breakdown. There is no tunneling or undermining noted. There is a medium amount of serosanguineous drainage noted. The wound margin is flat and intact. There is large (67-100%) red, pink granulation within the wound bed. There is a small (1- 33%) amount of necrotic tissue within the wound bed including Adherent Slough. The periwound skin appearance had no abnormalities noted for texture. The periwound skin appearance had no abnormalities noted for color. The periwound skin appearance exhibited: Dry/Scaly. The periwound skin appearance did not exhibit: Maceration. Periwound temperature was noted as No Abnormality. Review Of Systems: Constitutional: No fever, no chills, no night sweats. No weight change. No weakness, fatigue or lethargy. No daytime sleepiness. Integumentary:reports wounds, no lesions. No rash or pruritus. No unusual bruising. No change in hair or nails. Physical exam: General Appearance: Alert, cooperative, no distress, appears stated age. Skin: See HPI all other Skin color, texture, tugor normal, no rashes or lesions. Neurologic: Alert oriented x3 Assessment: 1. Pressure ulcers sacral region stage IV 2. Osteomyelitis of vertebrae lumbar sacral region 3. Pressure ulcer of the right heel stage III 4. Pressure ulcer of the left ankle stage III Plan: 1. Cleanse all ulcerations with Dakin's. Negative pressure wound VAC at 125 mmHg with black foam changed Monday. 2. Right calcaneus and left ankle ulcerations apply Santyl, saline moistened gauze, dry gauze, rolled gauze and secured paper tape. 3. Gluteal. Ulceration apply triad as needed Thank you for the consultation any questions please contact the wound care center DNP note has been reviewed and discussed with Dr. Shaikh and the impression and plan of care has been directed as dictated. 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 Mother Additional Family Medical History / Comment(s): Mother had cancer in 4 sites unknown primary. Brother(s) Additional Family Medical History / Comment(s): Patient's 1 brother diagnosed with colon cancer at age 15. One brother after having her bowel surgery due to a blood clot. Patient has one son with genetic mutations for familial polycythemia. Medications and Allergies Home Medications Medication Instructions Recorded Confirmed Type Bumetanide [BUMEX] 4 mg PO DAILY 03/03/22 05/26/22 History Magnesium Hydroxide [Milk of 7,200 mg PO DAILY PRN 03/03/22 05/26/22 History Magnesia Concentrate] Metoprolol Tartrate [Lopressor] 25 mg PO BID 03/03/22 05/26/22 History Multivitamins, Thera [Multivitamin 1 tab PO DIRECTED 03/03/22 05/26/22 History (formulary)] Ondansetron [Zofran] 4 mg PO Q12HR PRN 03/03/22 05/26/22 History bisacodyL [Bisacodyl] 10 mg PO DAILY PRN 03/03/22 05/26/22 History Scotty Nutritional Treat 290 ml PO DAILY@1300 05/26/22 05/26/22 History Lactobacillus Acidophilus 1 tab PO DAILY 05/26/22 05/26/22 History [Acidophilus] Mylanta 30 ml PO Q3H PRN 05/26/22 05/26/22 History Sennosides/Docusate Sodium [Senna 1 tab PO DAILY 05/26/22 05/26/22 History Plus 8.6-50 mg Tablet] Sucralfate [Carafate] 1 gm PO BID 05/26/22 05/26/22 History Allergies Allergy/AdvReac Type Severity Reaction Status Date / Time montelukast [From Singulair] Allergy Diarrhea Verified 05/26/22 12:05 acetaminophen [From Tylenol] AdvReac Abdominal Verified 05/26/22 12:05 Pain amoxicillin AdvReac Unknown Verified 05/26/22 12:05 Physical Exam Vitals: Vital Signs Temp Pulse Pulse Resp BP BP Pulse Ox 05/27/22 04:40 72 17 111/70 100 05/26/22 23:55 98.1 F 64 19 119/78 95 05/26/22 21:20 98 F 117 H 20 135/85 92 L 05/26/22 16:40 98.1 F 158 H 20 101/63 100 05/26/22 15:01 146 H 20 102/70 100 05/26/22 14:54 99.6 F 05/26/22 14:50 140 H 20 98/54 05/26/22 14:12 142 H 20 87/60 99 05/26/22 13:40 178 H 24 149/106 99 05/26/22 13:30 149 H 22 99 05/26/22 13:00 168 H 22 100 05/26/22 12:30 170 H 20 99 05/26/22 12:00 108 H 22 100 05/26/22 11:30 112 H 24 133/100 100 05/26/22 11:00 116 H 24 124/45 100 05/26/22 10:30 110 H 24 152/105 100 Intake and Output 05/26/22 05/27/22 05/27/22 22:59 06:59 14:59 Output Total 300 Balance -300 Output: Urine 300 Other: Voiding Method Indwelling Catheter Indwelling Catheter Weight 73.936 kg Results CBC & Chem 7: 05/27/22 07:41 05/27/22 07:41 Labs: Abnormal Lab Results - Last 24 Hours (Table) 05/26/22 05/26/22 05/26/22 Range/Units 10:06 10:06 10:06 WBC 11.1 H (3.8-10.6) k/uL Hgb 16.2 H (11.4-16.0) gm/dL Hct 51.6 H (34.0-46.0) % MCHC (31.0-37.0) g/dL RDW (11.5-15.5) % Plt Count (150-450) k/uL Neutrophils # (1.3-7.7) k/uL Neutrophils # (Manual) 9.55 H (1.3-7.7) k/uL Lymphocytes # (Manual) 0.89 L (1.0-4.8) k/uL Nucleated RBCs 5 H (0-0) /100 WBC PT 23.7 H (9.0-12.0) sec INR 2.4 H (<1.2) Sodium (137-145) mmol/L Potassium (3.5-5.1) mmol/L Chloride (98-107) mmol/L Carbon Dioxide (22-30) mmol/L BUN (7-17) mg/dL Creatinine (0.52-1.04) mg/dL Glucose (74-99) mg/dL Plasma Lactic Acid Raymond (0.7-2.0) mmol/L Calcium (8.4-10.2) mg/dL Total Bilirubin (0.2-1.3) mg/dL AST (14-36) U/L ALT (4-34) U/L Alkaline Phosphatase (38-126) U/L Total Protein (6.3-8.2) g/dL Albumin (3.5-5.0) g/dL Urine Appearance Turbid H (Clear) Urine pH 8.5 H (5.0-8.0) Urine Protein 3+ H (Negative) Urine Blood (Negative) Urine Nitrite Positive H (Negative) Urine Bilirubin 1+ H (Negative) Ur Leukocyte Esterase Large H (Negative) Urine RBC 6 H (0-5) /hpf Urine WBC 41 H (0-5) /hpf Urine WBC Clumps (None) /hpf Ur Squamous Epith Cells 12 H (0-4) /hpf Triple Phos Crystals Many H (None) /hpf Urine Bacteria Moderate H (None) /hpf Hyaline Casts (0-2) /lpf Urine Mucus Moderate H (None) /hpf 05/26/22 05/26/22 05/26/22 Range/Units 10:06 10:06 15:51 WBC (3.8-10.6) k/uL Hgb (11.4-16.0) gm/dL Hct (34.0-46.0) % MCHC (31.0-37.0) g/dL RDW (11.5-15.5) % Plt Count (150-450) k/uL Neutrophils # (1.3-7.7) k/uL Neutrophils # (Manual) (1.3-7.7) k/uL Lymphocytes # (Manual) (1.0-4.8) k/uL Nucleated RBCs (0-0) /100 WBC PT (9.0-12.0) sec INR (<1.2) Sodium 152 H (137-145) mmol/L Potassium (3.5-5.1) mmol/L Chloride 115 H (98-107) mmol/L Carbon Dioxide 16 L (22-30) mmol/L BUN 78 H (7-17) mg/dL Creatinine 1.97 H (0.52-1.04) mg/dL Glucose 160 H (74-99) mg/dL Plasma Lactic Acid Raymond 6.7 H* (0.7-2.0) mmol/L Calcium (8.4-10.2) mg/dL Total Bilirubin 1.4 H (0.2-1.3) mg/dL AST 41 H (14-36) U/L ALT 36 H (4-34) U/L Alkaline Phosphatase 150 H (38-126) U/L Total Protein 5.9 L (6.3-8.2) g/dL Albumin 2.7 L (3.5-5.0) g/dL Urine Appearance Cloudy H (Clear) Urine pH (5.0-8.0) Urine Protein Trace H (Negative) Urine Blood Moderate H (Negative) Urine Nitrite (Negative) Urine Bilirubin (Negative) Ur Leukocyte Esterase Large H (Negative) Urine RBC 13 H (0-5) /hpf Urine WBC 148 H (0-5) /hpf Urine WBC Clumps Few H (None) /hpf Ur Squamous Epith Cells (0-4) /hpf Triple Phos Crystals (None) /hpf Urine Bacteria Few H (None) /hpf Hyaline Casts 4 H (0-2) /lpf Urine Mucus Rare H (None) /hpf 05/27/22 05/27/22 Range/Units 07:41 07:41 WBC 11.8 H (3.8-10.6) k/uL Hgb (11.4-16.0) gm/dL Hct (34.0-46.0) % MCHC 30.8 L (31.0-37.0) g/dL RDW 16.0 H (11.5-15.5) % Plt Count 104 L (150-450) k/uL Neutrophils # 9.3 H (1.3-7.7) k/uL Neutrophils # (Manual) (1.3-7.7) k/uL Lymphocytes # (Manual) (1.0-4.8) k/uL Nucleated RBCs (0-0) /100 WBC PT (9.0-12.0) sec INR (<1.2) Sodium 152 H (137-145) mmol/L Potassium 2.5 L* (3.5-5.1) mmol/L Chloride 124 H (98-107) mmol/L Carbon Dioxide 17 L (22-30) mmol/L BUN 68 H (7-17) mg/dL Creatinine 1.47 H (0.52-1.04) mg/dL Glucose 137 H (74-99) mg/dL Plasma Lactic Acid Raymond (0.7-2.0) mmol/L Calcium 7.3 L (8.4-10.2) mg/dL Total Bilirubin (0.2-1.3) mg/dL AST (14-36) U/L ALT (4-34) U/L Alkaline Phosphatase (38-126) U/L Total Protein (6.3-8.2) g/dL Albumin (3.5-5.0) g/dL Urine Appearance (Clear) Urine pH (5.0-8.0) Urine Protein (Negative) Urine Blood (Negative) Urine Nitrite (Negative) Urine Bilirubin (Negative) Ur Leukocyte Esterase (Negative) Urine RBC (0-5) /hpf Urine WBC (0-5) /hpf Urine WBC Clumps (None) /hpf Ur Squamous Epith Cells (0-4) /hpf Triple Phos Crystals (None) /hpf Urine Bacteria (None) /hpf Hyaline Casts (0-2) /lpf Urine Mucus (None) /hpf Microbiology - Last 24 Hours (Table) 05/26/22 13:21 Gram Stain - Preliminary Other - Other Wound Culture - Preliminary 05/26/22 15:51 Urine Culture - Preliminary Urine,Catheterized 05/26/22 10:06 Urine Culture - Preliminary Urine,Voided 05/26/22 13:21 Anaerobic Culture - Preliminary Coccyx Assessment and Plan (1) Osteomyelitis of vertebra, lumbosacral region Current Visit: Yes Status: Acute Code(s): M46.27 - OSTEOMYELITIS OF VERTEBRA, LUMBOSACRAL REGION SNOMED Code(s): 254606340 (2) Pressure ulcer of right heel, stage 3 Current Visit: Yes Status: Acute Code(s): L89.613 - PRESSURE ULCER OF RIGHT HEEL, STAGE 3 SNOMED Code(s): 83736543039017 (3) Pressure ulcer of left ankle, stage 3 Current Visit: Yes Status: Acute Code(s): L89.523 - PRESSURE ULCER OF LEFT ANKLE, STAGE 3 SNOMED Code(s): 68552825014920 (4) Stage IV pressure ulcer of sacral region Current Visit: Yes Status: Acute Code(s): L89.154 - PRESSURE ULCER OF SACRAL REGION, STAGE 4 SNOMED Code(s): 84173457331070
[2022-05-27] MEDS ORDERED: SODIUM HYPOCHLORITE 0.5% 480 ML BOT MISCELLANE SCH (10:30)
--- NOTE | 2022-05-27 10:48 | CA ---
Transthoracic Echo Report Name: Kat Giordano Age: 71 Gender: F : 1950 Exam Date: 05/27/2022 09:09 Exam Location: [facility] Echo Ht (in): 59 Wt (lb): 163 Ordering Physician: Xiomara Watkins Attending/Referring Phys: Plumbing Designer Georgina Rojas RDCS Procedure CPT: Indications: new onset A-fib, hx HF Cardiac Hx: Technical Quality: Fair Contrast 1: Total Dose (mL): Contrast 2: Total Dose (mL): MEASUREMENTS (Male / Female) Normal Values 2D ECHO LV Diastolic Diameter PLAX 4.2 cm 4.2 - 5.9 / 3.9 - 5.3 cm LV Systolic Diameter PLAX 2.8 cm IVS Diastolic Thickness 1.4 cm 0.6 - 1.0 / 0.6 - 0.9 cm LVPW Diastolic Thickness 1.1 cm 0.6 - 1.0 / 0.6 - 0.9 cm LV Relative Wall Thickness 0.6 RV Internal Dim ED PLAX 3.3 cm LVOT Diameter 1.9 cm LA Volume 48.2 cm??? 18 - 58 / 22 - 52 cm??? M-MODE Aortic Root Diameter MM 2.9 cm LA Systolic Diameter MM 4.4 cm LA Ao Ratio MM 1.5 DOPPLER AV Peak Velocity 272.1 cm/s AV Peak Gradient 29.6 mmHg AV Mean Velocity 172.2 cm/s AV Mean Gradient 14.0 mmHg AV Velocity Time Integral 54.7 cm AI Peak Velocity 523.5 cm/s AI Peak Gradient 109.6 mmHg AI Pressure Half Time 365.3 ms LVOT Peak Velocity 111.6 cm/s LVOT Peak Gradient 5.0 mmHg LVOT Velocity Time Integral 21.4 cm LVOT Stroke Volume 58.1 cm??? LVOT Stroke Volume Index 34.4 ml/m??? LVOT Cardiac Index 2828.3 cm???/min???m??? AV Area Cont Eq vti 1.1 cm??? AV Area Cont Eq pk 1.1 cm??? MV Area PHT 4.3 cm??? Mitral E Point Velocity 37.1 cm/s Mitral A Point Velocity 80.4 cm/s Mitral E to A Ratio 0.5 MV Deceleration Time 178.1 ms MV E' Velocity 3.7 cm/s Mitral E to MV E' Ratio 10.1 TR Peak Velocity 275.8 cm/s TR Peak Gradient 30.4 mmHg Right Ventricular Systolic Press 35.4 mmHg FINDINGS Left Ventricle Moderately increased septal wall thickness. Mildly increased posterior wall thickness. Normal left ventricular systolic function with no obvious regional wall motion abnormalities. Left ventricular ejection fraction is estimated at 55-60 %. Right Ventricle Right ventricle not well visualized. Mild pulmonary hypertension. Right ventricular systolic pressure estimated at 35 mm hg. Right Atrium Normal right atrial size. Left Atrium Normal left atrial size. Mitral Valve Mitral valve thickened. Moderate mitral annular calcification. Trace to mild mitral regurgitation. Aortic Valve Mild aortic stenosis with a peak gradient of 30 mmHg and a mean gradient of 14 mmHg. Severe aortic regurgitation. Tricuspid Valve Structurally normal tricuspid valve. Mild tricuspid regurgitation. Pulmonic Valve Structurally normal pulmonic valve. Trace pulmonic regurgitation. Pericardium No pericardial effusion. Aorta Normal size aortic root and proximal ascending aorta. CONCLUSIONS Normal LV systolic function. Mild left ventricular hypertrophy Normal RV systolic function. Mild pulmonary hypertension Aortic sclerosis with mild aortic stenosis and severe aortic insufficiency Previewed by: Dr. Zhao Rider MD (Electronically Signed) Final Date: 27 May 2022 10:47
--- NOTE | 2022-05-27 11:06 | P.CRDCN ---
History of Present Illness Consult date: 05/27/22 Consult reason: atrial fibrillation Chief complaint: sepsis History of present illness: HISTORY of present illness: Patient is a pleasantly confused 71-year-old female with past medical history of sacral wound, hypertension, chronic indwelling Shook, familial polycythemia currently resides in a [facility] facility and presented to the ED with concerns of sepsis. She was found to be tachycardic and febrile. EKG was concerning for atrial fibrillation with RVR. She was attempted by the Cardizem drip however her blood pressure decreased and this was switched to amiodarone drip. She is currently in sinus rhythm. Patient is drowsy and oriented 2 and unable to provide history. Her son at bedside patient does not have a history of atrial fibrillation. No history of prior stroke. Actiq acid was initially elevated 6.7 and is now 2.0, WBC 11.1, creatinine 1.97, INR is elevated at 2.4. She is not on any blood thinners at home. CT shows sinus rhythm with background artifact and PACs. Telemetry reviewed and confirms atrial fibrillation on the monitor. She had a previous echo in 2018 with ejection fraction of 4045%. Echo today shows ejection fraction 5560%, mild LVH, mild aortic stenosis, sev ere aortic insufficiency. REVIEW OF SYSTEMS: No fever or chills. No cough or expectoration. No anna phoresis. Patient denies headache, dizziness, blurred vision, double vision. Patient denies any stomach discomfort. No nausea, vomiting. No hematochezia. No hematemesis. Denies any black stools or blood in his stools. Denies dysuria or hematuria. No muscle weakness or numbness. No chest pain or pressure. PHYSICAL EXAMINATION: This is a 71-year-old female in no apparent distress at the time of my examination. Drowsy. HEENT: Head is atraumatic, normocephalic. Pupils are equal, round. Sclerae ani cteric. Conjunctivae are clear. Mucous membranes of the mouth are moist. Neck is supple. There is no jugular venous distention. No carotid bruit is heard. CHEST EXAMINATION: Lungs are clear to auscultation. No chest wall tenderness is noted on palpation or with deep breathing. HEART EXAMINATION: Heart regular rate and rhythm. S1, S2 heard. No murmurs, gallops or rub. ABDOMEN: Soft, nontender. Bowel sounds are heard. No organomegaly noted. EXTREMITIES: 2+ peripheral pulses, +2 edema BLE with kerlex dressings intact bilat. NEUROLOGIC EXAMINATION: Patient is awake, alert and oriented x2, self and place. IMPRESSION AND PLAN: New-onset atrial fibrillation, currently in sinus rhythm Sepsis Multiple chronic wounds Hypertension History of familial polycythemia Aortic insufficiency PLAN: Patient has converted to a normal sinus rhythm while on amiodarone drip. Will DC amiodarone drip at this time. Continue metoprolol. Echo shows EF of 55- 60%, also revealed severe aortic insufficiency. INR on admission was elevated at 2.4, patient is a poor anticoagulation candidate due to this. I am dictating on behalf of Dr. Pranav Pulido's history/physical and assessment/plan. 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 Mother Additional Family Medical History / Comment(s): Mother had cancer in 4 sites unknown primary. Brother(s) Additional Family Medical History / Comment(s): Patient's 1 brother diagnosed with colon cancer at age 15. One brother after having her bowel surgery due to a blood clot. Patient has one son with genetic mutations for familial polycythemia. Medications and Allergies Home Medications Medication Instructions Recorded Confirmed Type Bumetanide [BUMEX] 4 mg PO DAILY 03/03/22 05/26/22 History Magnesium Hydroxide [Milk of 7,200 mg PO DAILY PRN 03/03/22 05/26/22 History Magnesia Concentrate] Metoprolol Tartrate [Lopressor] 25 mg PO BID 03/03/22 05/26/22 History Multivitamins, Thera [Multivitamin 1 tab PO DIRECTED 03/03/22 05/26/22 History (formulary)] Ondansetron [Zofran] 4 mg PO Q12HR PRN 03/03/22 05/26/22 History bisacodyL [Bisacodyl] 10 mg PO DAILY PRN 03/03/22 05/26/22 History Scotty Nutritional Treat 290 ml PO DAILY@1300 05/26/22 05/26/22 History Lactobacillus Acidophilus 1 tab PO DAILY 05/26/22 05/26/22 History [Acidophilus] Mylanta 30 ml PO Q3H PRN 05/26/22 05/26/22 History Sennosides/Docusate Sodium [Senna 1 tab PO DAILY 05/26/22 05/26/22 History Plus 8.6-50 mg Tablet] Sucralfate [Carafate] 1 gm PO BID 05/26/22 05/26/22 History Allergies Allergy/AdvReac Type Severity Reaction Status Date / Time montelukast [From Singulair] Allergy Diarrhea Verified 05/26/22 12:05 acetaminophen [From Tylenol] AdvReac Abdominal Verified 05/26/22 12:05 Pain amoxicillin AdvReac Unknown Verified 05/26/22 12:05 Physical Exam Vitals: Vital Signs Temp Pulse Pulse Resp BP BP Pulse Ox 05/27/22 04:40 72 17 111/70 100 05/26/22 23:55 98.1 F 64 19 119/78 95 05/26/22 21:20 98 F 117 H 20 135/85 92 L 05/26/22 16:40 98.1 F 158 H 20 101/63 100 05/26/22 15:01 146 H 20 102/70 100 05/26/22 14:54 99.6 F 05/26/22 14:50 140 H 20 98/54 05/26/22 14:12 142 H 20 87/60 99 05/26/22 13:40 178 H 24 149/106 99 05/26/22 13:30 149 H 22 99 05/26/22 13:00 168 H 22 100 05/26/22 12:30 170 H 20 99 05/26/22 12:00 108 H 22 100 05/26/22 11:30 112 H 24 133/100 100 05/26/22 11:00 116 H 24 124/45 100 Intake and Output 05/26/22 05/27/22 05/27/22 22:59 06:59 14:59 Output Total 300 Balance -300 Output: Urine 300 Other: Voiding Method Indwelling Catheter Indwelling Catheter Weight 73.936 kg Results 05/27/22 07:41 05/27/22 07:41 CBC 05/26/22 05/27/22 Range/Units 10:06 07:41 WBC 11.1 H 11.8 H (3.8-10.6) k/uL RBC 4.46 (3.80-5.40) m/uL Hgb 13.3 (11.4-16.0) gm/dL Hct 43.2 (34.0-46.0) % Plt Count 104 L (150-450) k/uL Comprehensive Metabolic Panel 05/27/22 Range/Units 07:41 Sodium 152 H (137-145) mmol/L Potassium 2.5 L* (3.5-5.1) mmol/L Chloride 124 H (98-107) mmol/L Carbon Dioxide 17 L (22-30) mmol/L BUN 68 H (7-17) mg/dL Creatinine 1.47 H (0.52-1.04) mg/dL Glucose 137 H (74-99) mg/dL Calcium 7.3 L (8.4-10.2) mg/dL Current Medications Generic Name Dose Route Start Last Admin Trade Name Freq PRN Reason Stop Dose Admin Heparin Sodium (Porcine) 5,000 unit 05/26/22 21:00 05/27/22 09:33 Heparin Sodium,Porcine/Pf 5,000 Unit/0.5 Ml Syringe SQ 5,000 unit Q12HR TRINO Administration Sodium Chloride 1,000 mls @ 130 mls/hr 05/26/22 09:45 05/27/22 09:31 Saline 0.9% IV Not Given .[id number] TRINO Vancomycin HCl 1,250 mg/ 250 mls @ 125 mls/hr 05/27/22 09:00 05/27/22 09:42 Sodium Chloride IVPB 05/27/22 10:59 125 mls/hr ONCE ONE Administration Cefepime HCl 2 gm/ Sodium 100 mls @ 25 mls/hr 05/27/22 09:00 05/27/22 09:44 Chloride IVPB 25 mls/hr Q12HR TRINO Administration Protocol Potassium Chloride 20 meq/ IV 100 mls @ 50 mls/hr 05/27/22 09:00 03/17/23 09:27 Solution IVPB 05/27/22 14:59 50 mls/hr Q2H TRINO Administration Protocol Metoprolol Tartrate 25 mg 05/26/22 21:00 05/27/22 09:32 Metoprolol Tartrate 25 Mg Tab PO Not Given BID TRINO Miscellaneous Information 1 each 05/26/22 09:51 Vancomycin Iv Per Pharmacy 1 Each Misc MISCELLANE DIRECTED PRN Per Protocol Protocol Miscellaneous Information 1 each 05/27/22 08:46 Potassium Replacement Protocol 1 Each Misc MISCELLANE DAILY PRN Per Protocol Protocol Naloxone HCl 0.2 mg 05/26/22 11:30 Naloxone 0.4 Mg/Ml 1 Ml Vial IV Q2M PRN Opioid Reversal Ondansetron HCl 4 mg 05/26/22 11:28 Ondansetron 4 Mg Tab PO Q12HR PRN Nausea Pantoprazole Sodium 40 mg 05/26/22 11:30 05/27/22 09:33 Pantoprazole 40 Mg/10 Ml Vial IVP 40 mg DAILY TRINO Administration Senna/Docusate Sodium 1 each 05/26/22 11:28 Sennosides-Docusate Sodium 1 Each Tab PO DAILY PRN Constipation Sodium Hypochlorite 480 ml 05/27/22 10:30 Sodium Hypochlorite 0.5% 480 Ml Bot MISCELLANE DIRECTED TRINO Intake and Output 05/26/22 05/27/22 05/27/22 22:59 06:59 14:59 Output Total 300 Balance -300 Output: Urine 300 Other: Voiding Method Indwelling Catheter Indwelling Catheter Weight 73.936 kg 05/27/22 07:41 05/27/22 07:41
[2022-05-27 11:34] VITALS: BMI 35.2
--- NOTE | 2022-05-27 15:55 | P.PN ---
Subjective Progress Note Date: 05/27/22 Principal diagnosis: Sacral osteomyelitis and UTI Patient is a 71-year-old female with multiple comorbidities and half-way resident patient was admitted to this facility in February 2022 with worsening wound to the sacral area patient did have a positive bone scan s uspicious for osteomyelitis of the sacral area local culture positive for Enterococcus faecalis surgical team saw the patient recommending no surgical intervention patient did get a PICC line and completed a 6-week course of IV antibiotic therapy , presenting back to the hospital with fever and mental status changes and noticed to have worsening of her sacral wound and a possible catheter associated UTI On today's evaluation that is 05/27/2022, the patient denies having any fever or any chills the patient is more awake and alert and did answer some simple question no chest pain shortness of breath or cough no abdominal pain and no diarrhea has been reported Objective - Vital Signs Vital signs: Vital Signs Temp 96.6 F L 05/27/22 08:00 Pulse 74 05/27/22 08:00 Resp 18 05/27/22 08:00 BP 92/60 05/27/22 08:00 Pulse Ox 100 05/27/22 08:00 FiO2 Intake & Output 05/26/22 05/27/22 05/27/22 18:59 06:59 18:59 Intake Total 20 240 Output Total 100 300 175 Balance -80 -300 65 Weight 73.936 kg 73.936 kg Intake: Oral 20 240 Output: Urine 100 300 175 Other: Voiding Method Indwelling Catheter Indwelling Catheter Indwelling Catheter - Exam GENERAL DESCRIPTION: An elderly female lying in bed in no distress RESPIRATORY SYSTEM: Unlabored breathing , decreased breath sounds at bases HEART: S1 S2 regular rate and rhythm , ABDOMEN: Soft , no tenderness EXTREMITIES: Diffuse swelling bilateral lower extremity - Labs CBC & Chem 7: 05/27/22 07:41 05/27/22 07:41 Labs: Abnormal Lab Results - Last 24 Hours (Table) 05/26/22 05/27/22 05/27/22 Range/Units 15:51 07:41 07:41 WBC 11.8 H (3.8-10.6) k/uL MCHC 30.8 L (31.0-37.0) g/dL RDW 16.0 H (11.5-15.5) % Plt Count 104 L (150-450) k/uL Neutrophils # 9.3 H (1.3-7.7) k/uL Sodium 152 H (137-145) mmol/L Potassium 2.5 L* (3.5-5.1) mmol/L Chloride 124 H (98-107) mmol/L Carbon Dioxide 17 L (22-30) mmol/L BUN 68 H (7-17) mg/dL Creatinine 1.47 H (0.52-1.04) mg/dL Glucose 137 H (74-99) mg/dL Calcium 7.3 L (8.4-10.2) mg/dL Urine Appearance Cloudy H (Clear) Urine Protein Trace H (Negative) Urine Blood Moderate H (Negative) Ur Leukocyte Esterase Large H (Negative) Urine RBC 13 H (0-5) /hpf Urine WBC 148 H (0-5) /hpf Urine WBC Clumps Few H (None) /hpf Urine Bacteria Few H (None) /hpf Hyaline Casts 4 H (0-2) /lpf Urine Mucus Rare H (None) /hpf Microbiology - Last 24 Hours (Table) 05/26/22 09:40 Blood Culture - Preliminary Blood No Growth after 24 hours 05/26/22 09:55 Blood Culture - Preliminary Blood No Growth after 24 hours 05/26/22 13:21 Gram Stain - Preliminary Other - Other Wound Culture - Preliminary Gram Neg Bacilli 05/26/22 15:51 Urine Culture - Preliminary Urine,Catheterized 05/26/22 10:06 Urine Culture - Preliminary Urine,Voided 05/26/22 13:21 Anaerobic Culture - Preliminary Coccyx Assessment and Plan (1) UTI (urinary tract infection) Current Visit: Yes Status: Acute Code(s): N39.0 - URINARY TRACT INFECTION, SITE NOT SPECIFIED SNOMED Code(s): 55027523 (2) Sacral osteomyelitis Current Visit: Yes Status: Acute Code(s): M46.28 - OSTEOMYELITIS OF VERTEBRA, SACRAL AND SACROCOCCYGEAL REGION SNOMED Code(s): 210606491 Plan: 1patient presented to hospital with sepsis in this patient who did have a fever elevated white count tachycardia source is likely infected sacral pressure ulcer as the patient was not noticed to have the bone palpable at the base of the wound and some fragmentation previous culture positive for Enterococcus faecalis could be gram-positive or gram-negative pathogen plus minus component of catheter associated tract infection. 2penicillin allergy through limited number of antibiotics safe to use. 3Foley catheter has been changed and urine culture from the new Shook has been obtained which are currently pending. 4deep culture has been obtained from the sacral area which are currently growing gram-negative 5patient to continue with the vancomycin with careful monitoring of the trough along with cefepime while waiting for the cultures to finalize son at the bedside questions were answered Time with Patient: Less than 30
[2022-05-28] MEDS: SODIUM CHLORIDE 0.9% 1,000 ML IV SCH ×3 (07:00→17:04)
[2022-05-28] MEDS: CEFEPIME 2 GM in SODIUM CHLORIDE 0.9% 100 ML IVPB SCH ×2 (08:44→21:34)
[2022-05-28] MEDS: HEPARIN SODIUM,PORCINE/PF 5,000 UNIT/0.5 ML SYRINGE SQ SCH ×2 (08:45→21:34)
[2022-05-28] MEDS: PANTOPRAZOLE 40 MG/10 ML VIAL IVP SCH (08:45)
[2022-05-28] MEDS: METOPROLOL TARTRATE 25 MG TAB PO SCH ×2 (08:45→21:34)
--- NOTE | 2022-05-28 09:13 | P.PN ---
Subjective Progress Note Date: 05/28/22 HISTORY of present illness: Patient is a pleasantly confused 71-year-old female with past medical history of sacral wound, hypertension, chronic indwelling Shook, familial polycythemia currently resides in a [facility] facility and presented to the ED with concerns of sepsis. She was found to be tachycardic and febrile. EKG was concerning for atrial fibrillation with RVR. She was attempted by the Cardizem drip however her blood pressure decreased and this was switched to amiodarone drip. She is currently in sinus rhythm. Patient is drowsy and oriented 2 and unable to provide history. Her son at bedside patient does not have a history of atrial fibrillation. No history of prior stroke. Actiq acid was initially elevated 6.7 and is now 2.0, WBC 11.1, creatinine 1.97, INR is elevated at 2.4. She is not on any blood thinners at home. CT shows sinus rhythm with background artifact and PACs. Telemetry reviewed and confirms atrial fibrillation on the monitor. She had a previous echo in 2018 with ejection fraction of 4045%. Echo today shows ejection fraction 5560%, mild LVH, mild aortic stenosis, severe aortic insufficiency. 05/28: Patient is more alert, oriented 2-3 with some confusion. Denies any chest pain, shortness of breath, or dizziness. Wound culture and urine positive for gram neg bacilli. Remains in sinus rhythm. PHYSICAL EXAMINATION: This is a 71-year-old female in no apparent distress at the time of my examination. Drowsy. HEENT: Head is atraumatic, normocephalic. Pupils are equal, round. Sclerae anicteric. Conjunctivae are clear. Mucous membranes of the mouth are moist. Neck is supple. There is no jugular venous distention. No carotid bruit is heard. CHEST EXAMINATION: Lungs are clear to auscultation. No chest wall tenderness is noted on palpation or with deep breathing. HEART EXAMINATION: Heart regular rate and rhythm. S1, S2 heard. No murmurs, gallops or rub. ABDOMEN: Soft, nontender. Bowel sounds are heard. EXTREMITIES: 2+ peripheral pulses, +2 edema BLE with kerlex dressings intact bilat. NEUROLOGIC EXAMINATION: Patient is awake, alert and oriented x2-3, some confusion. IMPRESSION AND PLAN: New-onset atrial fibrillation, currently in sinus rhythm Sepsis Multiple chronic wounds Hypertension History of familial polycythemia Aortic insufficiency, severe PLAN: Patient remains in sinus rhythm. Continue metoprolol. Echo shows EF of 55- 60%, also revealed severe aortic insufficiency. INR on admission was elevated at 2.4, patient is a poor anticoagulation candidate due to this. Cardiology to sign off. Follow up in clinic in 1-2 weeks. I am dictating on behalf of Dr. Pranav Pulido's history/physical and assessment/plan. Objective - Vital Signs Vital signs: Vital Signs Temp 96.8 F L 05/28/22 03:47 Pulse 70 05/28/22 03:47 Resp 14 05/28/22 03:47 BP 120/65 05/28/22 03:47 Pulse Ox 95 05/28/22 08:05 FiO2 Intake & Output 05/27/22 05/28/22 05/28/22 18:59 06:59 18:59 Intake Total 240 Output Total 275 300 Balance -35 -300 Weight 73.936 kg Intake: Oral 240 Output: Urine 275 300 Other: Voiding Method Indwelling Catheter Indwelling Catheter - Labs CBC & Chem 7: 05/27/22 07:41 05/28/22 07:01 Labs: Abnormal Lab Results - Last 24 Hours (Table) 05/27/22 Range/Units 07:41 Sodium 152 H (137-145) mmol/L Potassium 2.5 L* (3.5-5.1) mmol/L Chloride 124 H (98-107) mmol/L Carbon Dioxide 17 L (22-30) mmol/L BUN 68 H (7-17) mg/dL Creatinine 1.47 H (0.52-1.04) mg/dL Glucose 137 H (74-99) mg/dL Calcium 7.3 L (8.4-10.2) mg/dL Microbiology - Last 24 Hours (Table) 05/26/22 15:51 Urine Culture - Final Urine,Catheterized 05/26/22 10:06 Urine Culture - Preliminary Urine,Voided Gram Neg Bacilli 05/26/22 09:40 Blood Culture - Preliminary Blood No Growth after 24 hours 05/26/22 09:55 Blood Culture - Preliminary Blood No Growth after 24 hours 05/26/22 13:21 Gram Stain - Preliminary Other - Other Wound Culture - Preliminary Gram Neg Bacilli
[2022-05-28] MEDS: MORPHINE SULFATE 4 MG/ML SYRINGE IVP PRN (16:59)
--- NOTE | 2022-05-28 20:44 | P.PN ---
Subjective Progress Note Date: 05/27/22 71 is old female with multiple medical problems including hypertension, sacral decubitus ulcer stage IV, obesity, She was recently in this facility for infected sacral pressure ulcers and concerning for osteomyelitis and discharged on 03/04/2022 and she was discharged to her [facility] at [facility]. She was planning that time to go home from rehab with her . She was discharged on IV vancomycin, Secondary to wound culture growing Enterococcus faecalis x 6 weeks Patient was sent from wound center for a fever 102 and altered mental status. Patient is poor historian and could not provide information because of her altered mentation. CT of the abdomen and pelvis: She has a fever of 502.6 on admission. Rest of Vit[place] looks stable. Labs showing leukocytosis of 12.3 INR is 2.4 Sodium is elevated 152 Creatinine is elevated 1.9 Bilirubin is high at 1.4, liver enzymes slightly elevated 1 AST [address] of the abdomen and pelvis: Posttreatment changes to sacral ulcer with residual inflammation at this level may be present. No well-formed focal fluids IS seen. An emergency room patient was started on IV vancomycin and ceftriaxone Objective - Vital Signs Vital signs: Vital Signs Temp 97.4 F L 05/27/22 16:00 Pulse 77 05/27/22 16:00 Resp 18 05/27/22 16:00 BP 127/82 05/27/22 16:00 Pulse Ox 97 05/27/22 16:00 FiO2 Intake & Output 05/26/22 05/27/22 05/27/22 18:59 06:59 18:59 Intake Total 20 240 Output Total 100 300 275 Balance -80 -300 -35 Weight 73.936 kg 73.936 kg Intake: Oral 20 240 Output: Urine 100 300 275 Other: Voiding Method Indwelling Catheter Indwelling Catheter Indwelling Catheter - Exam -GENERAL: The patient is awake but looks confused, she has good attention span and she keep following me with her head and eyes she does not answer questions or follow commands HEENT: Pupils are round and equally reacting to light. EOMI. No scleral icterus. No conjunctival pallor. Normocephalic, atraumatic. No pharyngeal erythema. No thyromegaly. CARDIOVASCULAR: S1 and S2 present. No murmurs, rubs, or gallops. PULMONARY: Chest is clear to auscultation, no wheezing or crackles. ABDOMEN: Soft, nontender, nondistended, normoactive bowel sounds. No palpable organomegaly. -MUSCULOSKELETAL: No joint swelling or deformity. Unstageable sacral pressure ulcer EXTREMITIES: No cyanosis, clubbing, or pedal edema. NEUROLOGICAL: Gross neurological examination did not reveal any focal deficits. SKIN: No rashes. no petechiae. - Labs CBC & Chem 7: 05/27/22 07:41 05/28/22 07:01 Labs: Abnormal Lab Results - Last 24 Hours (Table) 05/27/22 05/27/22 Range/Units 07:41 07:41 WBC 11.8 H (3.8-10.6) k/uL MCHC 30.8 L (31.0-37.0) g/dL RDW 16.0 H (11.5-15.5) % Plt Count 104 L (150-450) k/uL Neutrophils # 9.3 H (1.3-7.7) k/uL Sodium 152 H (137-145) mmol/L Potassium 2.5 L* (3.5-5.1) mmol/L Chloride 124 H (98-107) mmol/L Carbon Dioxide 17 L (22-30) mmol/L BUN 68 H (7-17) mg/dL Creatinine 1.47 H (0.52-1.04) mg/dL Glucose 137 H (74-99) mg/dL Calcium 7.3 L (8.4-10.2) mg/dL Microbiology - Last 24 Hours (Table) 05/26/22 09:40 Blood Culture - Preliminary Blood No Growth after 24 hours 05/26/22 09:55 Blood Culture - Preliminary Blood No Growth after 24 hours 05/26/22 13:21 Gram Stain - Preliminary Other - Other Wound Culture - Preliminary Gram Neg Bacilli 05/26/22 15:51 Urine Culture - Preliminary Urine,Catheterized 05/26/22 10:06 Urine Culture - Preliminary Urine,Voided 05/26/22 13:21 Anaerobic Culture - Preliminary Coccyx Assessment and Plan Assessment: Infected sacral pressure ulcer Sepsis with fever and leukocytosis secondary to above,vs others Hypernatremia Acute kidney injury Severe dehydration, present on admission Altered mental status most likely metabolic encephalopathy secondary to above Plan: IV fluids currently on normal saline with 130 mL/h Continue with an antibiotic, currently on IV vancomycin and ceftriaxone Infectious disease consult Hold Bumex Labs and medication were reviewed.. Continue same treatment. Continue with symptomatic treatment. Resume home medication. Monitor labs and vitals. DVT and GI prophylaxis. Further recommendations as per clinical course of the patient DVT prophylaxis: Subcutaneous heparin GI Prophylaxis: Ppi
--- NOTE | 2022-05-28 20:46 | P.PN ---
Subjective Progress Note Date: 05/28/22 71 is old female with multiple medical problems including hypertension, sacral decubitus ulcer stage IV, obesity, She was recently in this facility for infected sacral pressure ulcers and concerning for osteomyelitis and discharged on 03/04/2022 and she was discharged to her retirement at [facility]. She was planning that time to go home from rehab with her . She was discharged on IV vancomycin, Secondary to wound culture growing Enterococcus faecalis x 6 weeks Patient was sent from wound center for a fever 102 and altered mental status. Patient is poor historian and could not provide information because of her altered mentation. CT of the abdomen and pelvis: She has a fever of 502.6 on admission. Rest of Vit[place] looks stable. Labs showing leukocytosis of 12.3 INR is 2.4 Sodium is elevated 152 Creatinine is elevated 1.9 Bilirubin is high at 1.4, liver enzymes slightly elevated 1 AST [address] of the abdomen and pelvis: Posttreatment changes to sacral ulcer with residual inflammation at this level may be present. No well-formed focal fluids IS seen. An emergency room patient was started on IV vancomycin and ceftriaxone 05/28/2022 Patient is seen and evaluated with family at bedside; family has requested consultation with hospice care with possible plan to transition patient to hospice/comfort care -- Met with patient's daughter and son outside the room and they are requesting to proceed with hospice measures and requesting optimal pain control or treatment Objective - Vital Signs Vital signs: Vital Signs Temp 97.8 F 05/28/22 08:00 Pulse 76 05/28/22 08:00 Resp 20 05/28/22 08:00 BP 147/78 05/28/22 08:00 Pulse Ox 95 05/28/22 08:05 FiO2 Intake & Output 05/27/22 05/28/22 05/28/22 18:59 06:59 18:59 Intake Total 240 1300 Output Total 275 300 1 Balance -35 -300 1299 Weight 73.936 kg Intake: Intake, IV Titration 1220 Amount Cefepime 2 gm In Sodium 100 Chloride 0.9% 100 ml @ 25 mls/hr IVPB Q12HR [facility] Rx #:[id number] Sodium Chloride 0.9% 1, 1120 000 ml @ 130 mls/hr IV . Q7H42M [facility] Rx#:[id number] Oral 240 80 Output: Drainage 1 Sacrum 1 Urine 275 300 Other: Voiding Method Indwelling Catheter Indwelling Catheter Indwelling Catheter - Exam -GENERAL: The patient is awake but looks confused, she has good attention span and she keep following me with her head and eyes she does not answer questions or follow commands HEENT: Pupils are round and equally reacting to light. EOMI. No scleral icterus. No conjunctival pallor. Normocephalic, atraumatic. No pharyngeal erythema. No thyromegaly. CARDIOVASCULAR: S1 and S2 present. No murmurs, rubs, or gallops. PULMONARY: Chest is clear to auscultation, no wheezing or crackles. ABDOMEN: Soft, nontender, nondistended, normoactive bowel sounds. No palpable organomegaly. -MUSCULOSKELETAL: No joint swelling or deformity. Unstageable sacral pressure ulcer EXTREMITIES: No cyanosis, clubbing, or pedal edema. NEUROLOGICAL: Gross neurological examination did not reveal any focal deficits. SKIN: No rashes. no petechiae. - Labs CBC & Chem 7: 05/27/22 07:41 05/28/22 07:01 Labs: Abnormal Lab Results - Last 24 Hours (Table) 05/28/22 Range/Units 07:01 Creatinine 1.09 H (0.52-1.04) mg/dL Microbiology - Last 24 Hours (Table) 05/26/22 15:51 Urine Culture - Final Urine,Catheterized 05/26/22 10:06 Urine Culture - Preliminary Urine,Voided Gram Neg Bacilli 05/26/22 09:40 Blood Culture - Preliminary Blood No Growth after 24 hours 05/26/22 09:55 Blood Culture - Preliminary Blood No Growth after 24 hours 05/26/22 13:21 Gram Stain - Preliminary Other - Other Wound Culture - Preliminary Gram Neg Bacilli Assessment and Plan Assessment: Infected sacral pressure ulcer Sepsis with fever and leukocytosis secondary to above,vs others Hypernatremia Acute kidney injury Severe dehydration, present on admission Altered mental status most likely metabolic encephalopathy secondary to above Plan: IV fluids currently on normal saline with 130 mL/h Continue with an antibiotic, currently on IV vancomycin and ceftriaxone Infectious disease consult Hold Bumex Labs and medication were reviewed.. Continue same treatment. Continue with symptomatic treatment. Resume home medication. Monitor labs and vitals. DVT a nd GI prophylaxis. Further recommendations as per clinical course of the patient DVT prophylaxis: Subcutaneous heparin GI Prophylaxis: Ppi
[2022-05-28] MEDS ORDERED: VANCOMYCIN 1,250 MG in SODIUM CHLORIDE 0.9% 250 ML IVPB ONE (21:00)
[2022-05-28] MEDS ORDERED: SODIUM HYPOCHLORITE 0.5% 480 ML BOT MISCELLANE SCH (21:00)
--- NOTE | 2022-05-28 22:01 | P.PN ---
Subjective Progress Note Date: 05/28/22 Principal diagnosis: Sacral osteomyelitis and UTI Patient is a 71-year-old female with multiple comorbidities and [facility] resident patient was admitted to this facility in February 2022 with worsening wound to the sacral area patient did have a positive bone scan s uspicious for osteomyelitis of the sacral area local culture positive for Enterococcus faecalis surgical team saw the patient recommending no surgical intervention patient did get a PICC line and completed a 6-week course of IV antibiotic therapy , presenting back to the hospital with fever and mental status changes and noticed to have worsening of her sacral wound and a possible catheter associated UTI On today's evaluation that is 05/28/2022, the patient remains to be afebrile the patient is sleepy today and did not answer any question no vomiting no diarrhea or any other changes reported by nursing staff Objective - Vital Signs Vital signs: Vital Signs Temp 97.8 F 05/28/22 08:00 Pulse 76 05/28/22 08:00 Resp 20 05/28/22 08:00 BP 147/78 05/28/22 08:00 Pulse Ox 95 05/28/22 08:05 FiO2 Intake & Output 05/27/22 05/28/22 05/28/22 18:59 06:59 18:59 Intake Total 240 1300 Output Total 275 300 1 Balance -35 -300 1299 Weight 73.936 kg Intake: Intake, IV Titration 1220 Amount Cefepime 2 gm In Sodium 100 Chloride 0.9% 100 ml @ 25 mls/hr IVPB Q12HR [facility] Rx #:[id number] Sodium Chloride 0.9% 1, 1120 000 ml @ 130 mls/hr IV . Q7H42M [facility] Rx#:[id number] Oral 240 80 Output: Drainage 1 Sacrum 1 Urine 275 300 Other: Voiding Method Indwelling Catheter Indwelling Catheter Indwelling Catheter - Exam GENERAL DESCRIPTION: An elderly female lying in bed in no distress RESPIRATORY SYSTEM: Unlabored breathing , decreased breath sounds at bases HEART: S1 S2 regular rate and rhythm , ABDOMEN: Soft , no tenderness EXTREMITIES: Diffuse swelling bilateral lower extremity - Labs CBC & Chem 7: 05/27/22 07:41 05/28/22 07:01 Labs: Abnormal Lab Results - Last 24 Hours (Table) 05/28/22 Range/Units 07:01 Creatinine 1.09 H (0.52-1.04) mg/dL Microbiology - Last 24 Hours (Table) 05/26/22 15:51 Urine Culture - Final Urine,Catheterized 05/26/22 10:06 Urine Culture - Preliminary Urine,Voided Gram Neg Bacilli 05/26/22 09:40 Blood Culture - Preliminary Blood No Growth after 24 hours 05/26/22 09:55 Blood Culture - Preliminary Blood No Growth after 24 hours 05/26/22 13:21 Gram Stain - Preliminary Other - Other Wound Culture - Preliminary Gram Neg Bacilli Assessment and Plan (1) UTI (urinary tract infection) Current Visit: Yes Status: Acute Code(s): N39.0 - URINARY TRACT INFECTION, S ITE NOT SPECIFIED SNOMED Code(s): 34984936 (2) Sacral osteomyelitis Current Visit: Yes Status: Acute Code(s): M46.28 - OSTEOMYELITIS OF VERTEBRA, SACRAL AND SACROCOCCYGEAL REGION SNOMED Code(s): 120045048 Plan: 1patient presented to hospital with sepsis in this patient who did have a fever elevated white count tachycardia source is likely infected sacral pressure ulcer as the patient was not noticed to have the bone palpable at the base of the wound and some fragmentation previous culture positive for Enterococcus faecalis could be gram-positive or gram-negative pathogen plus minus component of catheter associated tract infection. 2penicillin allergy through limited number of antibiotics safe to use. 3Foley catheter has been changed and urine culture from the new Shook has been obtained which are currently pending. 4deep culture has been obtained from the sacral area which are currently growing gram-negative with ID and sensitivities currently pending 5patient to continue with with cefepime while waiting for the cultures to finalize, vancomycin has been discontinued Time with Patient: Less than 30
[2022-05-29] MEDS: MORPHINE SULFATE 4 MG/ML SYRINGE IVP PRN ×2 (04:19→12:11)
[2022-05-29] MEDS: HEPARIN SODIUM,PORCINE/PF 5,000 UNIT/0.5 ML SYRINGE SQ SCH ×2 (09:47→21:46)
[2022-05-29] MEDS: metroNIDAZOLE 500 MG TAB PO SCH ×3 (09:47→21:46)
[2022-05-29] MEDS: CEFEPIME 2 GM in SODIUM CHLORIDE 0.9% 100 ML IVPB SCH ×2 (09:48→21:45)
[2022-05-29] MEDS: METOPROLOL TARTRATE 25 MG TAB PO SCH ×2 (09:48→21:46)
[2022-05-29] MEDS: PANTOPRAZOLE 40 MG/10 ML VIAL IVP SCH (10:09)
[2022-05-29] MEDS ORDERED: ONDANSETRON 4 MG/2 ML VIAL IVP PRN (16:59)
--- NOTE | 2022-05-29 22:41 | P.PN ---
Subjective Progress Note Date: 05/29/22 Principal diagnosis: Sacral osteomyelitis and UTI Patient is a 71-year-old female with multiple comorbidities and intermediate resident patient was admitted to this facility in February 2022 with worsening wound to the sacral area patient did have a positive bone scan s uspicious for osteomyelitis of the sacral area local culture positive for Enterococcus faecalis surgical team saw the patient recommending no surgical intervention patient did get a PICC line and completed a 6-week course of IV antibiotic therapy , presenting back to the hospital with fever and mental status changes and noticed to have worsening of her sacral wound and a possible catheter associated UTI On today's evaluation that is 05/29/2022, the patient continues to be afebrile the patient is slightly more awake and alert today. The patient is comfortably no chest pain shortness of breath or cough and no diarrhea has been reported Objective - Vital Signs Vital signs: Vital Signs Temp 97.1 F L 05/29/22 08:00 Pulse 85 05/29/22 08:00 Resp 18 05/29/22 08:00 BP 123/79 05/29/22 08:00 Pulse Ox 100 05/29/22 08:00 FiO2 Intake & Output 05/28/22 05/29/22 05/29/22 18:59 06:59 18:59 Intake Total 2520 Output Total 4 1600 Balance 2516 -1600 Intake: Intake, IV Titration 2340 Amount Cefepime 2 gm In Sodium 100 Chloride 0.9% 100 ml @ 25 mls/hr IVPB Q12HR [facility] Rx #:[id number] Sodium Chloride 0.9% 1, 2240 000 ml @ 130 mls/hr IV . Q7H42M [facility] Rx#:[id number] Oral 180 Output: Drainage 4 Sacrum 4 Urine 1600 Other: Voiding Method Indwelling Catheter Indwelling Catheter - Exam GENERAL DESCRIPTION: An elderly female lying in bed in no distress RESPIRATORY SYSTEM: Unlabored breathing , decreased breath sounds at bases HEART: S1 S2 regular rate and rhythm , ABDOMEN: Soft , no tenderness EXTREMITIES: Diffuse swelling bilateral lower extremity - Labs CBC & Chem 7: 05/27/22 07:41 05/28/22 07:01 Labs: Microbiology - Last 24 Hours (Table) 05/26/22 10:06 Urine Culture - Final Urine,Voided Proteus mirabilis 05/26/22 13:21 Anaerobic Culture - Preliminary Coccyx 05/26/22 09:40 Blood Culture - Preliminary Blood No Growth after 48 hours 05/26/22 09:55 Blood Culture - Preliminary Blood No Growth after 48 hours 05/26/22 13:21 Gram Stain - Preliminary Other - Other Wound Culture - Preliminary Pseudomonas aeruginosa Gram Neg Bacilli Assessment and Plan (1) UTI (urinary tract infection) Current Visit: Yes Status: Acute Code(s): N39.0 - URINARY TRACT INFECTION, SITE NOT SPECIFIED SNOMED Code(s): 05940057 (2) Sacral osteomyelitis Current Visit: Yes Status: Acute Code(s): M46.28 - OSTEOMYELITIS OF VERTEBRA, SACRAL AND SACROCOCCYGEAL REGION SNOMED Code(s): 323708303 Plan: 1patient presented to hospital with sepsis in this patient who did have a fever elevated white count tachycardia source is likely infected sacral pressure ulcer as the patient was not noticed to have the bone palpable at the base of the wound and some fragmentation previous culture positive for Enterococcus faecalis could be gram-positive or gram-negative pathogen plus minus component of catheter associated tract infection. 2penicillin allergy through limited number of antibiotics safe to use. 3Foley catheter has been changed and urine culture from the new Shook has been obtained which are sulfa negative initial culture with Proteus. 4the patient sacral culture are currently growing gram-negative with ID and sensitivities currently pending 5patient to continue with with cefepime and Flagyl while waiting for the cultures to finalize Time with Patient: Less than 30
[2022-05-29] MEDS ORDERED: DAPTOmycin 500 MG in SODIUM CHLORIDE 0.9% 50 ML IVPB SCH (23:30)
[2022-05-30] MEDS: PANTOPRAZOLE 40 MG/10 ML VIAL IVP SCH (08:08)
[2022-05-30] MEDS: HEPARIN SODIUM,PORCINE/PF 5,000 UNIT/0.5 ML SYRINGE SQ SCH (08:08)
[2022-05-30] MEDS: metroNIDAZOLE 500 MG TAB PO SCH ×2 (08:08→16:13)
[2022-05-30] MEDS: CEFEPIME 2 GM in SODIUM CHLORIDE 0.9% 100 ML IVPB SCH (08:08)
[2022-05-30] MEDS: METOPROLOL TARTRATE 25 MG TAB PO SCH (08:08)
--- NOTE | 2022-05-30 13:46 | P.DS ---
Providers Date of admission: 05/26/22 11:31 Expected date of discharge: 05/30/22 Attending physician: Bg Campbell MD Consults: 05/26/22 11:26 Consult Physician Urgent Consulting Provider: Warren Obrien Consult Reason/Comments: fever\ Do you want consulting provider notified?: Yes Primary care physician: Ramiro Mary Hospital Course: Final diagnosis Infected sacral pressure ulcer Sepsis with fever and leukocytosis secondary to above,vs others Hypernatremia Acute kidney injury Severe dehydration, present on admission Altered mental status most likely metabolic encephalopathy secondary to above Discharge disposition Patient is being discharged in a stable condition with guarded prognosis to [facility]. Patient will follow-up with Dr. Mary in the outpatient setting upon discharge. Patient is to continue with IV antibiotics per infectious disease recommendations as mentioned below. Total time taken is greater than 35 minutes. Hospital course This is a 71-year-old female who was recently admitted with multiple wounds including sacral pressure ulcers with concerns for osteomyelitis and maintained on IV antibiotics outpatient patient was sent back here with fever and sepsis with altered mental status and will be going back to [facility]. Patient was seen and evaluated by infectious disease with multiple comorbidities and cultures of the wound finalized with pseudomonas aeruginosa, Proteus mirabilis, VRE enterococcus and will be continued on antibiotics outpatient and to receive a PICC line. Patient is no code and patient will be returning to [facility] once patient receives PICC line. Please refer to other consultation notes for further HPI. Currently no reports of chest pain, shortness of breath, or palpitations. Patient is afebrile. No reports of nausea or vomiting and patient is tolerating diet. Patient will be going to [facility] today. Guarded prognosis. Physical exam: Gen: This is a 71-year-old female who was awake, well-developed, well-nourished, obese HEENT: Head is atraumatic, normocephalic. Pupils equal, round. Sclerae is anicteric. NECK: Supple. No JVD. No lymphadenopathy. No thyromegaly. LUNGS: Diminished breath sounds bilaterally with some scattered rhonchi noted rhonchi. No intercostal retractions. HEART: S1, S2 are muffled ABDOMEN: Soft. Bowel sounds are present. No masses. No tenderness. EXTREMITIES: No pedal edema. No calf tenderness. NEUROLOGICAL: Patient is awake, alert and oriented x1-2. Cranial nerves 2 through 12 are grossly intact. Diffusely weak Please refer to medication reconciliation sheet for a list of medications. The impression and plan of care has been dictated by Ashley Pandey, Nurse Practitioner as directed. Dr. Arya MD I have performed a history and examination and MDM of this patient, discussed the same with the dictator, and agree with the dictator's assessment and plan as written ,documented as a scribe. Based on total visit time, I have performed more than 50% of the visit. Patient Condition at Discharge: Fair Plan - Discharge Summary Discharge Rx Participant: No New Discharge Prescriptions: New DAPTOmycin [Cubicin] 500 mg IVPB Q24H 42 Days #42 each metroNIDAZOLE [Flagyl] 500 mg PO TID 42 Days #126 tab Cefepime [Maxipime] 2 gm IVPB Q12HR 42 Days #84 each Continue bisacodyL [Bisacodyl] 10 mg PO DAILY PRN PRN Reason: Constipation Ondansetron [Zofran] 4 mg PO Q12HR PRN PRN Reason: Nausea Metoprolol Tartrate [Lopressor] 25 mg PO BID Scotty Nutritional Treat 290 ml PO DAILY@1300 Mylanta 30 ml PO Q3H PRN PRN Reason: Indigestion Multivitamins, Thera [Multivitamin (formulary)] 1 tab PO DIRECTED Magnesium Hydroxide [Milk of Magnesia Concentrate] 7,200 mg PO DAILY PRN PRN Reason: Constipation Sennosides/Docusate Sodium [Senna Plus 8.6-50 mg Tablet] 1 tab PO DAILY Discontinued Lactobacillus Acidophilus [Acidophilus] 1 tab PO DAILY Sucralfate [Carafate] 1 gm PO BID Bumetanide [BUMEX] 4 mg PO DAILY Discharge Medication List Magnesium Hydroxide [Milk of Magnesia Concentrate] 7,200 mg PO DAILY PRN 03/03/22 [History] Metoprolol Tartrate [Lopressor] 25 mg PO BID 03/03/22 [History] Multivitamins, Thera [Multivitamin (formulary)] 1 tab PO DIRECTED 03/03/22 [History] Ondansetron [Zofran] 4 mg PO Q12HR PRN 03/03/22 [History] bisacodyL [Bisacodyl] 10 mg PO DAILY PRN 03/03/22 [History] Scotty Nutritional Treat 290 ml PO DAILY@1300 05/26/22 [History] Mylanta 30 ml PO Q3H PRN 05/26/22 [History] Sennosides/Docusate Sodium [Senna Plus 8.6-50 mg Tablet] 1 tab PO DAILY 05/26/22 [History] Cefepime [Maxipime] 2 gm IVPB Q12HR 42 Days #84 each 05/30/22 [Rx] DAPTOmycin [Cubicin] 500 mg IVPB Q24H 42 Days #42 each 05/30/22 [Rx] metroNIDAZOLE [Flagyl] 500 mg PO TID 42 Days #126 tab 05/30/22 [Rx] Follow up Appointment(s)/Referral(s): Ramiro Mary MD [Primary Care Provider] - 1-2 days Activity/Diet/Wound Care/Special Instructions: Patient is going to [facility] Activity as tolerated Continue the antibiotic therapy per ID recommendations Patient to receive a PICC line Patient to continue on dysphagia pured diet with aspiration precautions and he ad of the bed elevated 45 at all times and supervision with meals The patient is to continue with local wound care and outpatient follow-up with the wound care center, cleanse all ulcerations with the DAkins solution and continue negative pressure wound VAC at 125 mmHg with black foam change on Monday//Monday Right calcaneus and left ankle ulcerations apply Santyl with saline moistened gauze, dry gauze, rolled gauze and secured paper tape Gluteal wound apply Triad cream as needed and frequent position changes every 2 hours to be offloading Discharge Disposition: TRANSFER TO SNF/ECF
[2022-05-30] MEDS ORDERED: LIDOCAINE 1% INJ 10MG/ML (5 ML VIAL-PF) SQ ONE (15:36)
[2022-05-30] MEDS ORDERED: IOPAMIDOL-250 100ML BTL IV ONE (15:42)
[2022-05-30 16:34] VITALS: BP 100/69; PULSE 79; RESP 20; TEMP 97.8
--- NOTE | 2022-05-31 08:42 | IR ---
PICC LINE PLACEMENT: HISTORY: Infection requiring long-term antibiotic therapy PROCEDURE: Ultrasound and fluoroscopic guidance of PICC line placement. COMPLICATIONS: None ANESTHESIA: 1. 1% Lidocaine locally. FINDINGS/TECHNIQUE: The procedure was explained to the patient. The risks, complications, benefits and alternatives were discussed and any questions were answered. Informed consent was obtained. The patient was placed supine on the fluoroscopic table and prepped and draped in the usual sterile fash ion. Utilizing a 21 gauge needle and sonographic and fluoroscopic guidance, access in the left basi lic vein was achieved and there is placement of a 0.018 guidewire. The vein is patent. A 4-F sheath was placed over the guidewire. The guidewire and dilator were removed and a 4-F. PICC line was plac ed through the sheath with the tip at the level of the SVC. The sheath was removed, the catheter was flushed and sutured into position. The patient was stable throughout the procedure and remained sta ble upon discharge from the Department of Radiology. The vein puncture was patent under ultrasound. A hernandez scale image was obtained to document patency of the vein punctured. All elements of the maximal barrier technique were utilized. FLUOROSCOPY TIME: DAP [id number] IMPRESSION: Successful PICC line placement under ultrasound and fluoroscopic guidance.
--- NOTE | 2022-05-31 17:18 | CDI ---
Documentation Clarification Form Date: 05/31/2022 5:09:23 PM From: Jessica Loya Admit Date: 05/26/2022 11:31:00 AM Patient Name: Kat Giordano Visit Number: [id number] Discharge Date: 05/30/2022 6:31:00 PM ATTENTION: The Clinical Documentation Specialists (CDI) and [facility] Coding Staff appreciate your assistance in clarifying documentation. Please respond to the clarification below the line at the bottom and electronically sign. The CDI & [facility] Coding staff will review the response and follow-up if needed. Please note: Queries are made part of the Legal Health Record. If you have any questions, please contact the author of this message via ITS. Dr. Moisés Koenig The patients principal diagnosis the diagnosis that was chiefly responsible for the admission - has not been clearly identified and clarification is requested. The patients Clinical Indicators include: Patient has a stage 4 pressure ulcer sacral region, wound cultures positive for pseudomonas aeruginosa, proteus mirabilis, enterococcus faecium VRE. Patient also has a chronic indwelling murguia with possible catheter associated UTI, urine cultures positive for proteus mirabilis. D/C Summary states: Sepsis with fever and leukocytosis secondary to infected sacral pressure ulcer vs other. Lab findings: Urine was turbid and cloudy, pH 8.5, protein 3+, nitrate positive, Bilirubin 1+, leukocyte esterase large, RBC 6, WBC 41, equamous epith cells 12, bacteria moderate, phos crystals many, mucus moderate. WBC: 11.1 Lactic acid 6.7. Treatment: IV antibiotics, PICC line before d.c, murguia catheter was changed In your professional opinion, can you please clarify which diagnosis, after study, was the reason chiefly responsible for the admission? [ ] Sepsis due to stage 4 sacral pressure ulcer [ ] Sepsis due to indwelling murguia catheter associated UTI [ ] Other, please specify [ ] Unable to determine Sepsis due to stage 4 sacral pressure ulcer MTDD
--- NOTE | 2022-06-01 14:49 | P.PN ---
Subjective Progress Note Date: 05/30/22 Principal diagnosis: Sacral osteomyelitis and UTI Patient is a 71-year-old female with multiple comorbidities and [facility] resident patient was admitted to this facility in February 2022 with worsening wound to the sacral area patient did have a positive bone scan s uspicious for osteomyelitis of the sacral area local culture positive for Enterococcus faecalis surgical team saw the patient recommending no surgical intervention patient did get a PICC line and completed a 6-week course of IV antibiotic therapy , presenting back to the hospital with fever and mental status changes and noticed to have worsening of her sacral wound and a possible catheter associated UTI On today's evaluation that is 05/30/2022, the patient remained to be afebrile the patient is slightly more awake and alert today and did answer some simple questions. The patient is comfortably no chest pain shortness of breath or cough and no diarrhea has been reported Objective - Vital Signs Vital signs: Vital Signs Temp 97.3 F L 05/30/22 08:03 Pulse 65 05/30/22 11:00 Resp 18 05/30/22 11:00 BP 128/77 05/30/22 11:00 Pulse Ox 100 05/30/22 11:00 FiO2 Intake & Output 05/29/22 05/30/22 05/30/22 18:59 06:59 18:59 Intake Total 100 110 Output Total 375 300 Balance -275 -300 110 Intake: Intake, IV Titration 100 Amount Cefepime 2 gm In Sodium 100 Chloride 0.9% 100 ml @ 25 mls/hr IVPB Q12HR [facility] Rx #:[id number] Oral 110 Output: Urine 375 300 Other: Voiding Method Indwelling Catheter Indwelling Catheter Indwelling Catheter # Bowel Movements 0 - Exam GENERAL DESCRIPTION: An elderly female lying in bed in no distress RESPIRATORY SYSTEM: Unlabored breathing , decreased breath sounds at bases HEART: S1 S2 regular rate and rhythm , ABDOMEN: Soft , no tenderness EXTREMITIES: Diffuse swelling bilateral lower extremity - Labs CBC & Chem 7: 05/27/22 07:41 05/28/22 07:01 Labs: Microbiology - Last 24 Hours (Table) 05/26/22 13:21 Anaerobic Culture - Final Coccyx 05/26/22 13:21 Gram Stain - Final Other - Other Wound Culture - Final Pseudomonas aeruginosa Proteus mirabilis Enterococcus faecium VRE 05/26/22 09:40 Blood Culture - Preliminary Blood No Growth after 72 hours 05/26/22 09:55 Blood Culture - Preliminary Blood No Growth after 72 hours Assessment and Plan (1) UTI (urinary tract infection) Status: Acute Code(s): N39.0 - URINARY TRACT INFECTION, SITE NOT SPECIFIED SNOMED Code(s): 78014237 (2) Sacral osteomyelitis Status: Acute Code(s): M46.28 - OSTEOMYELITIS OF VERTEBRA, SACRAL AND SACROCOCCYGEAL REGION SNOMED Code(s): 837641301 Plan: 1patient presented to hospital with sepsis in this patient who did have a fever elevated white count tachycardia source is likely infected sacral pressure ulcer as the patient was not noticed to have the bone palpable at the base of the wound and some fragmentation previous culture positive for Enterococcus faecalis could be gram-positive or gram-negative pathogen plus minus component of catheter associated tract infection. 2penicillin allergy through limited number of antibiotics safe to use. 3Foley catheter has been changed and urine culture from the new [place] has been obtained which are sulfa negative initial culture with Proteus. 4the patient sacral culture has been finalized with Pseudomonas Proteus and VRE 5patient to continue with cefepime, Flagyl daptomycin has been added to cover for the VRE plan is for a 6 week course of IV antibiotic local wound care per the wound care team and close outpatient follow-up Time with Patient: Less than 30
--- NOTE | 2022-06-02 21:04 | P.PN ---
Subjective Progress Note Date: 05/29/22 71 is old female with multiple medical problems including hypertension, sacral decubitus ulcer stage IV, obesity, She was recently in this facility for infected sacral pressure ulcers and concerning for osteomyelitis and discharged on 03/04/2022 and she was discharged to her fdc at [facility]. She was planning that time to go home from rehab with her . She was discharged on IV vancomycin, Secondary to wound culture growing Enterococcus faecalis x 6 weeks Patient was sent from wound center for a fever 102 and altered mental status. Patient is poor historian and could not provide information because of her altered mentation. CT of the abdomen and pelvis: She has a fever of 502.6 on admission. Rest of Vit[place] looks stable. Labs showing leukocytosis of 12.3 INR is 2.4 Sodium is elevated 152 Creatinine is elevated 1.9 Bilirubin is high at 1.4, liver enzymes slightly elevated 1 AST [address] of the abdomen and pelvis: Posttreatment changes to sacral ulcer with residual inflammation at this level may be present. No well-formed focal fluids IS seen. An emergency room patient was started on IV vancomycin and ceftriaxone 05/28/2022 Patient is seen and evaluated with family at bedside; family has requested consultation with hospice care with possible plan to transition patient to hospice/comfort care -- Met with patient's daughter and son outside the room and they are requesting to proceed with hospice measures and requesting optimal pain control or treatment 05/29/2022 the patient continues to be afebrile the patient is slightly more awake and alert today. The patient is comfortably no chest pain shortness of breath or cough and no diarrhea has been reported Patient is comfortable; dc to hospice tomorrow Objective - Vital Signs Vital signs: Vital Signs Temp 96.8 F L 05/29/22 16:00 Pulse 94 05/29/22 16:00 Resp 14 05/29/22 16:00 BP 114/67 05/29/22 16:00 Pulse Ox 100 05/29/22 16:00 FiO2 Intake & Output 05/28/22 05/29/22 05/29/22 18:59 06:59 18:59 Intake Total 2520 100 Output Total 4 1600 375 Balance 2516 -1600 -570 Intake: Intake, IV Titration 2340 100 Amount Cefepime 2 gm In Sodium 100 100 Chloride 0.9% 100 ml @ 25 mls/hr IVPB Q12HR TRINO Rx #:[id number] Sodium Chloride 0.9% 1, 2240 000 ml @ 130 mls/hr IV . Q7H42M [facility] Rx#:[id number] Oral 180 Output: Drainage 4 Sacrum 4 Urine 1600 375 Other: Voiding Method Indwelling Catheter Indwelling Catheter Indwelling Catheter - Exam -GENERAL: The patient is awake but looks confused, she has good attention span and she keep following me with her head and eyes she does not answer questions or follow commands HEENT: Pupils are round and equally reacting to light. EOMI. No scleral icterus. No conjunctival pallor. Normocephalic, atraumatic. No pharyngeal erythema. No thyromegaly. CARDIOVASCULAR: S1 and S2 present. No murmurs, rubs, or gallops. PULMONARY: Chest is clear to auscultation, no wheezing or crackles. ABDOMEN: Soft, nontender, nondistended, normoactive bowel sounds. No palpable organomegaly. -MUSCULOSKELETAL: No joint swelling or deformity. Unstageable sacral pressure ulcer EXTREMITIES: No cyanosis, clubbing, or pedal edema. NEUROLOGICAL: Gross neurological examination did not reveal any focal deficits. SKIN: No rashes. no petechiae. - Labs CBC & Chem 7: 05/27/22 07:41 05/28/22 07:01 Labs: Microbiology - Last 24 Hours (Table) 05/26/22 13:21 Gram Stain - Final Other - Other Wound Culture - Final Pseudomonas aeruginosa Proteus mirabilis Enterococcus faecium VRE 05/26/22 09:40 Blood Culture - Preliminary Blood No Growth after 72 hours 05/26/22 09:55 Blood Culture - Preliminary Blood No Growth after 72 hours 05/26/22 10:06 Urine Culture - Final Urine,Voided Proteus mirabilis 05/26/22 13:21 Anaerobic Culture - Preliminary Coccyx Assessment and Plan Assessment: Infected sacral pressure ulcer Sepsis with fever and leukocytosis secondary to above,vs others Hypernatremia Acute kidney injury Severe dehydration, present on admission Altered mental status most likely metabolic encephalopathy secondary to above Plan: IV fluids currently on normal saline with 130 mL/h Continue with an antibiotic, currently on IV vancomycin and ceftriaxone Infectious disease consult Hold Bumex Labs and medication were reviewed.. Continue same treatment. Continue with symptomatic treatment. Resume home medication. Monitor labs and vitals. DVT and GI prophylaxis. Further recommendations as per clinical course of the patient DVT prophylaxis: Subcutaneous heparin GI Prophylaxis: Ppi
== END 2022-05-30 18:31 | DRG 871 ==
LOC: EC 08:58 → 3SCARD 11:31
PROVIDERS: ADMIT Internal Medicine; ATTEND Internal Medicine
PROC: 02HV33Z Insertion of Infusion Device into Superior Vena Cava, Percutaneous Approach (ICD-10-PCS; principal; 2022-05-30 13:35)
DX: A41.9 Sepsis, unspecified organism (principal); G93.41 Metabolic encephalopathy; L89.154 Pressure ulcer of sacral region, stage 4; L89.613 Pressure ulcer of right heel, stage 3; L89.523 Pressure ulcer of left ankle, stage 3; T83.511A Infection and inflammatory reaction due to indwelling urethral catheter, initial encounter; N39.0 Urinary tract infection, site not specified; N17.9 Acute kidney failure, unspecified; M46.27 Osteomyelitis of vertebra, lumbosacral region; E87.0 Hyperosmolality and hypernatremia; D75.0 Familial erythrocytosis; B96.5 Pseudomonas (aeruginosa) (mallei) (pseudomallei) as the cause of diseases classified elsewhere; B95.2 Enterococcus as the cause of diseases classified elsewhere; B96.4 Proteus (mirabilis) (morganii) as the cause of diseases classified elsewhere; I11.9 Hypertensive heart disease without heart failure; I35.2 Nonrheumatic aortic (valve) stenosis with insufficiency; R79.1 Abnormal coagulation profile; I48.91 Unspecified atrial fibrillation; E86.0 Dehydration; Z66 Do not resuscitate; Z96.643 Presence of artificial hip joint, bilateral; Z71.3 Dietary counseling and surveillance; Z88.0 Allergy status to penicillin; Z88.1 Allergy status to other antibiotic agents; Z88.6 Allergy status to analgesic agent; Z74.01 Bed confinement status; Z79.899 Other long term (current) drug therapy; Z51.5 Encounter for palliative care
CPT/HCPCS: 36415; 36573; 71045; 74176; 80048; 80053; 80202; 81001; 82565; 83605; 84132; 85025; 85610; 85730; 87040; 87070; 87075; 87077; 87086; 87186; 87205; 93005; 93306; 94760; 96365; 96366; 96367; 96375; 99291

== ENCOUNTER 2022-05-31 07:25 | Inpatient (IN) | payer MEDICARE, OTHER ==
--- NOTE | 2022-05-31 07:40 | ED ---
General Adult HPI - General Stated complaint: AMS Time Seen by Provider: 05/31/22 07:28 Source: EMS, RN notes reviewed, old records reviewed (Review of previous admission records including discharge summary) Mode of arrival: EMS Limitations: altered mental status - History of Present Illness Initial comments: Patient is a 71-year-old female presenting to the emergency department with concern for change in mental status. Patient was reportedly discharged from the hospital yesterday with a diagnosis of sepsis. Patient reportedly has been altered since arrival at nursing facility last night. Patient is nonverbal and provides no history. - Related Data Home Medications Medication Instructions Recorded Confirmed Metoprolol Tartrate [Lopressor] 25 mg PO BID 03/03/22 05/31/22 Multivitamins, Thera [Multivitamin 1 tab PO DIRECTED 03/03/22 05/31/22 (formulary)] Ondansetron [Zofran] 4 mg PO Q12HR PRN 03/03/22 05/31/22 Mylanta 30 ml PO Q3H PRN 05/26/22 05/31/22 Sennosides/Docusate Sodium [Senna 1 tab PO DAILY 05/26/22 05/31/22 Plus 8.6-50 mg Tablet] Bumetanide [BUMEX] 2 mg PO ONETIME 05/31/22 05/31/22 Collagenase [Santyl Ointment] 1 applic TOPICAL DAILY 05/31/22 05/31/22 Dakin's Solution 1 applic TOPICAL TUTHSA 05/31/22 05/31/22 Lactobacillus Acidophilus 1 cap PO DAILY 05/31/22 05/31/22 [Acidophilus Probiotic] Magnesium Hydroxide [Milk of 1,200 mg PO DAILY PRN 05/31/22 05/31/22 Magnesia] Nystatin [Nystatin Oral Susp] 500,000 unit PO QID 05/31/22 05/31/22 oxyCODONE HCL [OxyIR] 5 mg PO Q6H PRN 05/31/22 05/31/22 Previous Rx's Medication Instructions Recorded Cefepime [Maxipime] 2 gm IVPB Q12HR 42 Days #84 each 05/30/22 DAPTOmycin [Cubicin] 500 mg IVPB Q24H 42 Days #42 each 05/30/22 metroNIDAZOLE [Flagyl] 500 mg PO TID 42 Days #126 tab 05/30/22 Allergies Allergy/AdvReac Type Severity Reaction Status Date / Time montelukast [From Singulair] Allergy Diarrhea Verified 05/31/22 07:49 acetaminophen [From Tylenol] AdvReac Abdominal Verified 05/31/22 07:49 Pain amoxicillin AdvReac Unknown Verified 05/31/22 07:49 Review of Systems ROS Statement: Those systems with pertinent positive or pertinent negative responses have been documented in the HPI. ROS Other: All systems not noted in ROS Statement are negative. 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 Mother Additional Family Medical History / Comment(s): Mother had cancer in 4 sites unknown primary. Brother(s) Additional Family Medical History / Comment(s): Patient's 1 brother diagnosed with colon cancer at age 15. One brother after having her bowel surgery due to a blood clot. Patient has one son with genetic mutations for familial polycythemia. General Exam Limitations: altered mental status, physical limitation General appearance: alert, in no apparent distress Head exam: Present: atraumatic, other (Anasarca) Eye exam: Present: normal appearance, PERRL, EOMI ENT exam: Present: mucous membranes dry Neck exam: Present: normal inspection Respiratory exam: Present: normal lung sounds bilaterally Cardiovascular Exam: Present: regular rate, normal rhythm GI/Abdominal exam: Present: soft. Absent: tenderness Extremities exam: Present: pedal edema Neurological exam: Present: alert, altered, other (Does follow simple commands. No flaccid paralysis) Psychiatric exam: Present: flat affect Skin exam: Present: normal color, other (Deep sacral ulcer approximately 4 x 5 cm with packing) Course Vital Signs 05/31/22 05/31/22 05/31/22 07:29 09:00 10:00 Temperature 98.0 F Pulse Rate 90 81 88 Respiratory 20 18 20 Rate Blood Pressure 142/65 128/47 133/48 O2 Sat by Pulse 100 100 100 Oximetry EKG Findings - EKG Results: EKG: interpreted by BRENNOND (Left axis. LVH.), sinus rhythm, normal ST/T Medical Decision Making - Medical Decision Making Was pt. sent in by a medical professional or institution (, PA, MOLD RUNNER, urgent care, hospital, or jail...) When possible be specific @ -Patient was sent from nursing facility Did you speak to anyone other than the patient for history (EMS, parent, family, police, friend...)? What history was obtained from this source @ -No Did you review nursing and triage notes (agree or disagree)? Why? @ -I reviewed and agree with nursing and triage notes Were old charts reviewed (outside hosp., previous admission, EMS record, old EKG, old radiological studies, urgent care reports/EKG's, jail records)? Report findings @ -[Previous admission reviewed Differential Diagnosis (chest pain, altered mental status, abdominal pain women, abdominal pain men, vaginal bleeding, weakness, fever, dyspnea, syncope, headache, dizziness, GI bleed, back pain, seizure, CVA, palpatations, mental health)? @ -Differential Altered Mental Status: Hypoglycemia, DKA, hypercapnia, ETOH, overdose, CO poisoning, trauma, myxedema coma, HTN encephalopathy, infection, encephalitis, psychosis, intercranial hemorrhage, hepatic encephalopathy, meningitis, CVA, this is not meant to be an all-inclusive list EKG interpreted by me (3pts min.). @ -As above X-rays interpreted by me (1pt min.). @ -Chest x-ray shows left lower atelectasis/effusion/infiltrate CT interpreted by me (1pt min.). @ -Report reviewed U/S interpreted by me (1pt. min.). @ -None done What testing was considered but not performed or refused? (CT, X-rays, U/S, labs)? Why? @ -None What meds were considered but not given or refused? Why? @ -None Did you discuss the management of the patient with other professionals (professionals i.e. , DOTTY, MOLD RUNNER, lab, RT, psych nurse, social media campaign manager, bi tri operator, teacher, environmental compliance officer, continuous pillowcase cutter)? Give summary @ -Case was discussed with practitioner Ashley Pandey, who will admit this patient Was smoking cessation discussed for >3mins.? @ -No Was critical care preformed (if so, how long)? @ -No Were there social determinants of health that impacted care today? How? (Homelessness, low income, unemployed, alcoholism, drug addiction, transportation, low edu. Level, literacy, decrease access to med. care, penitentiary, rehab)? @ -No Was there de-escalation of care discussed even if they declined (Discuss DNR or withdrawal of care, Hospice)? DNR status @ -No What co-morbidities impacted this encounter? (DM, HTN, Smoking, COPD, CAD, Cancer, CVA, ARF, Chemo, Hep., AIDS, mental health diagnosis, sleep apnea, morbid obesity)? @ -None Was patient admitted / discharged? Hospital course, mention meds given and route, prescriptions, significant lab abnormalities, going to OR and other pertinent info. @ -Patient will be admitted for altered mental status and likely disorder Undiagnosed new problem with uncertain prognosis? @ -No Drug Therapy requiring intensive monitoring for toxicity (Heparin, Nitro, Insulin, Cardizem)? @ -No Were any procedures done? @ -No Diagnosis/symptom? @ -Altered mental status, h hypokalemia, hyponatremia Acute, or Chronic, or Acute on Chronic? @ -Acute on chronic, acute, acute on chronic Uncomplicated (without systemic symptoms) or Complicated (systemic symptoms)? @ -default Side effects of treatment? @ -No Exacerbation, Progression, or Severe Exacerbation? @ -No Poses a threat to life or bodily function? How? (Chest pain, USA, NC, pneumonia, PE, COPD, DKA, ARF, appy, cholecystitis, CVA, Diverticulitis, Homicidal, Suicidal, threat to staff... and all critical care pts) @ -No - Lab Data Result diagrams: 05/31/22 08:09 05/31/22 08:09 Lab Results 05/31/22 05/31/22 05/31/22 Range/Units 08:09 08:09 08:09 WBC 10.0 (3.8-10.6) k/uL RBC 4.48 (3.80-5.40) m/uL Hgb 13.6 (11.4-16.0) gm/dL Hct 42.4 (34.0-46.0) % MCV 94.8 (80.0-100.0) fL MCH 30.3 (25.0-35.0) pg MCHC 31.9 (31.0-37.0) g/dL RDW 17.4 H (11.5-15.5) % Plt Count 115 L (150-450) k/uL MPV 9.5 Neutrophils % 89 % Lymphocytes % 7 % Monocytes % 3 % Eosinophils % 0 % Basophils % 0 % Neutrophils # 8.9 H (1.3-7.7) k/uL Lymphocytes # 0.7 L (1.0-4.8) k/uL Monocytes # 0.3 (0-1.0) k/uL Eosinophils # 0.0 (0-0.7) k/uL Basophils # 0.0 (0-0.2) k/uL Anisocytosis Slight PT 15.2 H (9.0-12.0) sec INR 1.5 H (<1.2) APTT 25.8 (22.0-30.0) sec Sodium (137-145) mmol/L Potassium (3.5-5.1) mmol/L Chloride (98-107) mmol/L Carbon Dioxide (22-30) mmol/L Anion Gap mmol/L BUN (7-17) mg/dL Creatinine (0.52-1.04) mg/dL Est GFR (CKD-EPI)AfAm (>60 ml/min/1.73 sqM) Est GFR (CKD-EPI)NonAf (>60 ml/min/1.73 sqM) Glucose (74-99) mg/dL POC Glucose (mg/dL) (70-110) mg/dL POC Glu Yardage Control Clerk ID Calcium (8.4-10.2) mg/dL Total Bilirubin (0.2-1.3) mg/dL AST (14-36) U/L ALT (4-34) U/L Alkaline Phosphatase (38-126) U/L Troponin I (0.000-0.034) ng/mL Total Protein (6.3-8.2) g/dL Albumin (3.5-5.0) g/dL Urine Color Yellow Urine Appearance Cloudy H (Clear) Urine pH 6.0 (5.0-8.0) Ur Specific [place] 1.009 (1.001-1.035) Urine Protein Trace H (Negative) Urine Glucose (UA) Negative (Negative) Urine Ketones Negative (Negative) Urine Blood Small H (Negative) Urine Nitrite Negative (Negative) Urine Bilirubin Negative (Negative) Urine Urobilinogen <2.0 (<2.0) mg/dL Ur Leukocyte Esterase Moderate H (Negative) Urine WBC 11 H (0-5) /hpf Ur Squamous Epith Cells 1 (0-4) /hpf Urine Mucus Rare H (None) /hpf Ur Yeast w Hyphae Rare (None) /hpf Urine Yeast (Budding) Many H (None) /hpf 05/31/22 05/31/22 05/31/22 Range/Units 08:09 08:09 08:20 WBC (3.8-10.6) k/uL RBC (3.80-5.40) m/uL Hgb (11.4-16.0) gm/dL Hct (34.0-46.0) % MCV (80.0-100.0) fL MCH (25.0-35.0) pg MCHC (31.0-37.0) g/dL RDW (11.5-15.5) % Plt Count (150-450) k/uL MPV Neutrophils % % Lymphocytes % % Monocytes % % Eosinophils % % Basophils % % Neutrophils # (1.3-7.7) k/uL Lymphocytes # (1.0-4.8) k/uL Monocytes # (0-1.0) k/uL Eosinophils # (0-0.7) k/uL Basophils # (0-0.2) k/uL Anisocytosis PT (9.0-12.0) sec INR (<1.2) APTT (22.0-30.0) sec Sodium 150 H (137-145) mmol/L Potassium 2.0 L* (3.5-5.1) mmol/L Chloride 122 H (98-107) mmol/L Carbon Dioxide 18 L (22-30) mmol/L Anion Gap 10 mmol/L BUN 37 H (7-17) mg/dL Creatinine 0.78 (0.52-1.04) mg/dL Est GFR (CKD-EPI)AfAm >90 (>60 ml/min/1.73 sqM) Est GFR (CKD-EPI)NonAf 78 (>60 ml/min/1.73 sqM) Glucose 107 H (74-99) mg/dL POC Glucose (mg/dL) 104 (70-110) mg/dL POC Glu Yardage Control Clerk ID Tracy Gurrola Calcium 8.1 L (8.4-10.2) mg/dL Total Bilirubin 1.3 (0.2-1.3) mg/dL AST 28 (14-36) U/L ALT 18 (4-34) U/L Alkaline Phosphatase 230 H (38-126) U/L Troponin I 0.033 (0.000-0.034) ng/mL Total Protein 4.8 L (6.3-8.2) g/dL Albumin 2.2 L (3.5-5.0) g/dL Urine Color Urine Appearance (Clear) Urine pH (5.0-8.0) Ur Specific [place] (1.001-1.035) Urine Protein (Negative) Urine Glucose (UA) (Negative) Urine Ketones (Negative) Urine Blood (Negative) Urine Nitrite (Negative) Urine Bilirubin (Negative) Urine Urobilinogen (<2.0) mg/dL Ur Leukocyte Esterase (Negative) Urine WBC (0-5) /hpf Ur Squamous Epith Cells (0-4) /hpf Urine Mucus (None) /hpf Ur Yeast w Hyphae (None) /hpf Urine Yeast (Budding) (None) /hpf Disposition Clinical Impression: Altered mental status, Hypernatremia, Hypokalemia Disposition: ADMITTED IP TO THIS HOSP Is patient prescribed a controlled substance at d/c from ED?: No Referrals: Ramiro Mary MD [Primary Care Provider] - 1-2 days Time of Disposition: 10:11
[2022-05-31 07:47] VITALS: TEMP 98
--- NOTE | 2022-05-31 08:12 | XR ---
EXAMINATION TYPE: XR chest 1V portable DATE OF EXAM: 05/31/2022 8:05 AM COMPARISON: Chest radiographs from 05/26/2022 TECHNIQUE: XR chest 1V portable Portable AP radiograph of the chest. CLINICAL INDICATION:Female, 71 years old with history of altered mental status; FINDINGS: Lungs/Pleura: Right lower lung linear scarring and/or atelectasis redemonstrated. Small left pleural effusion with adjacent patchy airspace opacity. Pulmonary vascularity: Unremarkable. Heart/mediastinum: Cardiomediastinal silhouette is prominent in size. Musculoskeletal: No acute osseous pathology. Bilateral shoulder arthropathy with left greater the rig ht. Strictures: Curvature of the thoracic spine. Other findings: None Lines/Tubes: Left-sided PICC with distal tip at the superior vena cava/brachiocephalic confluence. IMPRESSION: Development of small left pleural effusion with adjacent patchy airspace opacity which may represent atelectasis and/or infiltrate.
[2022-05-31 08:22] LABS: Glucose,Whole Blood 104 mg/dL (70-110)
[2022-05-31 08:53] LABS: Anisocytosis Slight; Basophils % (A) 0 %; Eosinophils % (A) 0 %; HCT 42.4 % (34.0-46.0); HGB 13.6 gm/dL (11.4-16.0); Lymphocytes # (A) 0.7 k/uL (1.0-4.8); Lymphocytes % (A) 7 %; MCH 30.3 pg (25.0-35.0); MCHC 31.9 g/dL (31.0-37.0); MCV 94.8 fL (80.0-100.0); Mean Platelet Volume 9.5; Monocytes # (A) 0.3 k/uL (0-1.0); Monocytes % (A) 3 %; Neutrophils # (A) 8.9 k/uL (1.3-7.7); Neutrophils % (A) 89 %; Platelet Count 115 k/uL (150-450); RBC 4.48 m/uL (3.80-5.40); RDW 17.4 % (11.5-15.5)
[2022-05-31 09:03] LABS: INR 1.5 (<1.2); Partial Thromboplastin Time 25.8 sec (22.0-30.0); Prothrombin Time 15.2 sec (9.0-12.0)
[2022-05-31 09:09] LABS: ALT 18 U/L (4-34); AST 28 U/L (14-36); African American GFR (CKD) >90 (>60 ml/min/1.73 sqM); Albumin 2.2 g/dL (3.5-5.0); Alkaline Phosphatase 230 U/L (38-126); Anion Gap 10 mmol/L; Blood Urea Nitrogen 37 mg/dL (7-17); Calcium 8.1 mg/dL (8.4-10.2); Carbon Dioxide 18 mmol/L (22-30); Chloride 122 mmol/L (98-107); Glucose 107 mg/dL (74-99); Non-African American GFR(CKD) 78 (>60 ml/min/1.73 sqM); Sodium 150 mmol/L (137-145); Total Bilirubin 1.3 mg/dL (0.2-1.3); Total Protein 4.8 g/dL (6.3-8.2)
[2022-05-31 09:20] LABS: Appearance,Urine Cloudy (Clear); Bilirubin,Urine Negative (Negative); Blood,Urine Small (Negative); Budding Yeast,Urine Many /hpf; Color,Urine Yellow; Glucose,Urine (UA) Negative (Negative); Hyphae Yeast, Urine Rare /hpf; Ketones,Urine Negative (Negative); Leukocyte Esterase,Urine Moderate (Negative); Mucus,Urine Rare /hpf; Nitrite,Urine Negative (Negative); Protein,Urine Trace (Negative); Specific Gravity,Urine 1.009 (1.001-1.035); Squamous Epithelial Cell,Urine 1 /hpf (0-4); Urobilinogen,Urine <2.0 mg/dL (<2.0); WBC,Urine 11 /hpf (0-5)
--- NOTE | 2022-05-31 09:43 | CT ---
EXAMINATION TYPE: CT brain wo con CT DLP: 1098.8 mGycm, Automated exposure control for dose reduction was used. DATE OF EXAM: 05/31/2022 9:04 AM COMPARISON: None. CLINICAL INDICATION:Female, 71 years old with history of Altered mental status, ams TECHNIQUE: Brain: Multiple axial CT images of the brain were obtained without IV contrast. Coronal and sagittal reformats reviewed. FINDINGS: Brain: Extra-axial spaces: No abnormal extra-axial fluid collections. Ventricular system: Dilatation in proportion to cerebral atrophy. Cerebral parenchyma: Cerebral atrophy. No acute intraparenchymal hemorrhage or mass effect. The hernandez -white junction is well differentiated. Confluent hypoattenuating areas are seen within the white mat ter. Cerebellum: Unremarkable. Mass effect: No evidence of midline shift. Intracranial vasculature: Atherosclerotic calcifications of the intracranial vessels. Postsurgical ch anges with coils within the right MCA region from prior intervention. Soft tissues: Normal. Calvarium/osseous structures: No depressed skull fracture. Craniotomy defect along the right frontal and temporal bones. Paranasal sinuses and mastoid air cells: Mild scattered paranasal sinus disease. Visualized orbits: Bilateral aphakia IMPRESSION: 1. No acute intracranial process. 2. Nonspecific white matter changes, likely secondary to chronic small vessel ischemic disease. 3. Postsurgical changes.
[2022-05-31] MEDS ORDERED: Potassium Replacement Protocol 1 EACH MISC MISCELLANE PRN ×2 (10:11→16:37)
[2022-05-31] MEDS ORDERED: POTASSIUM CHLORIDE ER 20 MEQ TAB.ER PO ONE (10:11)
[2022-05-31] MEDS ORDERED: NALOXONE 0.4 MG/ML 1 ML VIAL IV PRN (10:12)
[2022-05-31] MEDS ORDERED: POTASSIUM BICARBONATE/CIT AC 20 MEQ TABLET.EFF PO ONE (11:30)
[2022-05-31] MEDS: POTASSIUM CHLORIDE 10 MEQ in WATER FOR INJECTION 1 100ML.BAG IVPB SCH ×2 (12:31→14:27)
[2022-05-31] MEDS: 0.9% NACL WITH KCL 20 MEQ/L 1,000 ML IV SCH (12:31)
[2022-05-31] MEDS ORDERED: MAG HYDROX/AL HYDROX/SIMETH 30 ML CUP PO PRN (16:36)
[2022-05-31] MEDS ORDERED: ONDANSETRON 4 MG TAB PO PRN (16:36)
[2022-05-31] MEDS ORDERED: MAGNESIUM HYDROXIDE 2,400 MG/10 ML CUP PO PRN (16:36)
[2022-05-31] MEDS ORDERED: Magnesium Replacement Protocol 1 EACH MISC MISCELLANE PRN (16:37)
[2022-05-31] MEDS ORDERED: MULTIVITAMINS, THERA 1 EACH TAB PO SCH (16:45)
[2022-05-31] MEDS ORDERED: DAPTOmycin 500 MG VIAL IVPB SCH (16:45)
[2022-05-31] MEDS ORDERED: NON FORMULARY DRUG (Bumetanide [Bumex] 2 MG Tablet) PO SCH (16:45)
[2022-05-31] MEDS ORDERED: DAPTOmycin 500 MG in SODIUM CHLORIDE 0.9% 50 ML IVPB SCH (17:00)
[2022-05-31] MEDS ORDERED: SODIUM HYPOCHLORITE 0.25% 480 ML BOT MISCELLANE SCH (17:00)
[2022-05-31 18:12] LABS: Glucose,Whole Blood 118 mg/dL (70-110)
[2022-05-31 19:01] LABS: Potassium 2.4 mmol/L (3.5-5.1)
[2022-05-31] MEDS: DEXTROSE 5% IN WATER 1,000 ML with POTASSIUM CHLORIDE 40 MEQ IV SCH (19:37)
[2022-05-31] MEDS: metroNIDAZOLE 500 MG TAB PO SCH (20:29)
[2022-05-31] MEDS: METOPROLOL TARTRATE 25 MG TAB PO SCH (20:29)
[2022-05-31] MEDS: CEFEPIME 2 GM in SODIUM CHLORIDE 0.9% 100 ML IVPB SCH (20:53)
[2022-05-31] MEDS ORDERED: CEFEPIME 2 GM VIAL IVPB SCH (21:00)
--- NOTE | 2022-05-31 21:14 | HP ---
HISTORY AND PHYSICAL CHIEF COMPLAINT: Change in mental status as well as weakness. HISTORY OF PRESENT ILLNESS: This is a 71-year-old woman with a past medical history of multiple medical problems, was recently admitted with multiple decubitus ulcers. The patient was started on IV antibiotics. The patient was sent to ECF who noted change in mental status, and the patient also had severe hypokalemia and hyponatremia. The patient was admitted for further evaluation and treatment. Most of the history is taken on the patient, the patient is generally also taken by my discussion staff as well as review of chart at this time. PAST MEDICAL HISTORY: Recent decubitus ulcer, sepsis, hypertension, familial polycythemia, multiple medical issues, rest of the chart and rest of the diagnosis also reviewed. HOME MEDICATIONS: Reviewed again, OxyIR, dose and rest of medications noted. ALLERGIES: Reviewed include Singulair, rest of the allergies noted. Family history, social history, and review of systems could not be taken because of change in mental status. PHYSICAL EXAMINATION: VITAL SIGNS: Pulse is 88, blood pressure 123/45, respirations 23. HEENT: Conjunctivae normal. NECK: No jugular venous distention. CARDIOVASCULAR: S1, S2 muffled. RESPIRATIONS: Diminished at the bases. Few scattered rhonchi, no crackles. ABDOMEN: Soft, nontender. LEGS AND ARMS: Both edematous. NERVOUS SYSTEM: Could not be examined. SKIN: As mentioned decubitus ulcers present. LABORATORY DATA: Reviewed. ASSESSMENT: 1. Change in mental status, metabolic encephalopathy, multifactorial, possibly medication induced. 2. Severe hypernatremia. 3. Severe hypokalemia. 4. History of recent sepsis and decubitus ulcers. 5. Hypertension history. 6. History of polycythemia. 7. History of brain aneurysm. RECOMMENDATIONS: This 71-year-old woman presented with multiple complex medical issues. At this time, we will monitor the patient closely, continue the current medications. Resume the home medications and the patient was recently admitted here for a prolonged period. The palliative care may be appropriate after talking with the guardian. We will continue to monitor. CT scan showed no acute abnormalities. We will consult Infectious Disease as well. See orders for details. PROGNOSIS: Guarded. MMODL / IJN: [id number] / [facility]
[2022-06-01] MEDS ORDERED: SENNOSIDES-DOCUSATE SODIUM 1 EACH TAB PO SCH (09:00)
[2022-06-01] MEDS ORDERED: LACTOBACILLUS ACIDOPH & BULGAR 1 EACH PACKET PO SCH (09:00)
[2022-06-01 09:04] LABS: Basophils # (A) 0.01 X 10*3/uL (0.00-0.10); Basophils % (A) 0.1 %; Eosinophils # (A) 0.01 X 10*3/uL (0.04-0.35); Eosinophils % (A) 0.1 %; HGB 11.9 g/dL (12.0-15.0); Lymphocytes # (A) 1.21 X 10*3/uL (0.90-5.00); Lymphocytes % (A) 14.8 %; MCH 29.4 pg (27.0-32.0); MCHC 32.2 g/dL (32.0-37.0); MCV 91.4 fL (80.0-97.0); Mean Platelet Volume 10.6 fL (9.5-12.2); Monocytes # (A) 0.57 X 10*3/uL (0.20-1.00); NRBC Per 100 WBC 0 /100 WBCS (0.0-0.0); Neutrophils # (A) 6.28 X 10*3/uL (1.80-7.70); Platelet Count 126 X 10*3/uL (140-440); RBC 4.05 X 10*6/uL (4.10-5.20); RDW 19.9 % (11.5-14.5); WBC 8.16 X 10*3/uL (4.50-10.00)
[2022-06-01 09:25] LABS: Magnesium 1.4 mg/dL (1.5-2.4)
[2022-06-01 09:31] LABS: African American GFR (CKD) 102.5 (60.0-200.0); Albumin 2.1 g/dL (3.8-4.9); Albumin/Globulin Ratio 0.95 (1.60-3.17); Anion Gap 9.1 mmol/L (10.00-18.00); BUN/Creat Ratio 42.43 Ratio (12.00-20.00); Blood Urea Nitrogen 29.7 mg/dL (9.0-27.0); Carbon Dioxide 17.9 mmol/L (20.0-27.5); Globulin 2.2 g/dL (1.6-3.3); Non-African American GFR(CKD) 88.4 (60.0-200.0); Potassium 2.5 mmol/L (3.5-5.5); Total Bilirubin 0.7 mg/dL (0.30-1.20); Total Protein 4.3 g/dL (6.2-8.2)
[2022-06-01] MEDS ORDERED: Potassium Replacement Protocol 1 EACH MISC MISCELLANE PRN (10:03)
[2022-06-01] MEDS: metroNIDAZOLE 500 MG TAB PO SCH ×3 (10:40→15:23)
[2022-06-01] MEDS: METOPROLOL TARTRATE 25 MG TAB PO SCH (10:50)
[2022-06-01] MEDS: 0.9% NACL WITH KCL 20 MEQ/L 1,000 ML IV SCH (11:22)
[2022-06-01] MEDS: DEXTROSE 5% IN WATER 1,000 ML with POTASSIUM CHLORIDE 40 MEQ IV SCH (11:24)
[2022-06-01] MEDS: CEFEPIME 2 GM in SODIUM CHLORIDE 0.9% 100 ML IVPB SCH (11:35)
[2022-06-01] MEDS: POTASSIUM BICARBONATE/CIT AC 20 MEQ TABLET.EFF PO SCH ×2 (11:36→12:19)
--- NOTE | 2022-06-01 13:53 | P.DS ---
Providers Date of admission: 05/31/22 10:22 Expected date of discharge: 06/01/22 Attending physician: Kasandra Bowden Consults: 05/31/22 16:35 Consult Physician Routine Consulting Provider: Warren Obrien Consult Reason/Comments: decub Do you want consulting provider notified?: Yes 05/31/22 19:49 Consult Physician Routine Consulting Provider: Ganga Mooney Consult Reason/Comments: Possible new onset seizure Do you want consulting provider notified?: Yes Primary care physician: Ramiro Mary Hospital Course: Final diagnosis Change in mental status, metabolic encephalopathy, multifactorial, possibly medication induced severe hypernatremia Severe hypokalemia History of recent sepsis and decubitus ulcers Hypertension history History of polycythemia history brain aneurysm No code Discharge disposition Patient is being discharged in a stable condition with guarded prognosis to [facility] with hospice comfort measures. Patient will follow-up with Dr. Mary in the outpatient setting upon discharge. Total time taken is greater than 35 minutes. Hospital course This is a 71-year-old female who was recently admitted with severe electrolyte abnormalities, altered mental status, severe hypokalemia with multiple comorbid conditions and medical problems. Patient was recently discharged on antibiotics with a PICC line to [facility] and was therefore less than a day and sent back for altered mental status and found to have several joint abnormalities including hypernatremia, hypokalemia, hypomagnesemia. Overall prognosis is poor and this was discussed with family who are agreeable to hospice and patient will be returning to [facility] with comfort measures. Currently no reports of chest pain, shortness of breath, or palpitations. Patient is afebrile. On admission patient was unable to tolerate any oral intake and is now able to swallow after being evaluated by speech recommending pleasure foods. No reports of nausea or vomiting and patient is tolerating diet. Patient will be going to [facility] today. Physical exam: Gen: This is a 71-year-old female who is awake, alert and oriented 1-2, well- developed, well-nourished, ill-appearing HEENT: Head is atraumatic, normocephalic. Pupils equal, round. Sclerae is anicteric. NECK: Supple. No JVD. No lymphadenopathy. No thyromegaly. LUNGS: Diminished breath sounds bilaterally with crackles and scattered rhonchi. No intercostal retractions. HEART: S1, S2 are muffled ABDOMEN: Soft. Bowel sounds are present. No masses. No tenderness. EXTREMITIES: No pedal edema. No calf tenderness. NEUROLOGICAL: Patient is awake, alert and oriented x1-2. Cranial nerves 2 through 12 are grossly intact. Diffusely weak Please refer to medication reconciliation sheet for a list of medications. The impression and plan of care has been dictated by Ashley Pandey, Nurse Practitioner as directed. Dr. Arya MD I have performed a history and examination and MDM of this patient, discussed the same with the dictator, and agree with the dictator's assessment and plan as written ,documented as a scribe. Based on total visit time, I have performed more than 50% of the visit. Patient Condition at Discharge: Poor Plan - Discharge Summary New Discharge Prescriptions: Continue Ondansetron [Zofran] 4 mg PO Q12HR PRN PRN Reason: Nausea Metoprolol Tartrate [Lopressor] 25 mg PO BID Mylanta 30 ml PO Q3H PRN PRN Reason: Indigestion Collagenase [Santyl Ointment] 1 applic TOPICAL DAILY Dakin's Solution 0.25% 1 applic TOPICAL TUTHSA Multivitamins, Thera [Multivitamin (formulary)] 1 tab PO DIRECTED Magnesium Hydroxide [Milk of Magnesia] 1,200 mg PO DAILY PRN PRN Reason: Constipation Nystatin [Nystatin Oral Susp] 500,000 unit PO QID Discontinued Bumetanide [BUMEX] 2 mg PO ONETIME No Action DAPTOmycin [Cubicin] 500 mg IVPB Q24H 42 Days #42 each metroNIDAZOLE [Flagyl] 500 mg PO TID 42 Days #126 tab Cefepime [Maxipime] 2 gm IVPB Q12HR 42 Days #84 each Lactobacillus Acidophilus [Acidophilus Probiotic] 1 cap PO DAILY oxyCODONE HCL [OxyIR] 5 mg PO Q6H PRN PRN Reason: Pain Sennosides/Docusate Sodium [Senna Plus 8.6-50 mg Tablet] 1 tab PO DAILY Discharge Medication List Metoprolol Tartrate [Lopressor] 25 mg PO BID 03/03/22 [History] Multivitamins, Thera [Multivitamin (formulary)] 1 tab PO DIRECTED 03/03/22 [History] Ondansetron [Zofran] 4 mg PO Q12HR PRN 03/03/22 [History] Mylanta 30 ml PO Q3H PRN 05/26/22 [History] Sennosides/Docusate Sodium [Senna Plus 8.6-50 mg Tablet] 1 tab PO DAILY 05/26/22 [History] Cefepime [Maxipime] 2 gm IVPB Q12HR 42 Days #84 each 05/30/22 [Rx] DAPTOmycin [Cubicin] 500 mg IVPB Q24H 42 Days #42 each 05/30/22 [Rx] metroNIDAZOLE [Flagyl] 500 mg PO TID 42 Days #126 tab 05/30/22 [Rx] Collagenase [Santyl Ointment] 1 applic TOPICAL DAILY 05/31/22 [History] Dakin's Solution 0.25% 1 applic TOPICAL TUTHSA 05/31/22 [History] Lactobacillus Acidophilus [Acidophilus Probiotic] 1 cap PO DAILY 05/31/22 [History] Magnesium Hydroxide [Milk of Magnesia] 1,200 mg PO DAILY PRN 05/31/22 [History] Nystatin [Nystatin Oral Susp] 500,000 unit PO QID 05/31/22 [History] oxyCODONE HCL [OxyIR] 5 mg PO Q6H PRN 05/31/22 [History] Follow up Appointment(s)/Referral(s): Wendi Chung, [NON-STAFF] - [facility] [NON-STAFF] - Ramiro Mary MD [Primary Care Provider] - 1-2 days Activity/Diet/Wound Care/Special Instructions: Patient is returning to [facility] with hospice Discharge Disposition: TRANSFER TO SNF/ECF
--- NOTE | 2022-06-01 16:17 | P.CNNES ---
History of Present Illness Consult date: 06/01/22 Requesting physician: Syl Chatman Reason for Consult: Possible new onset seizure History of Present Illness: Patient is a 71-year-old female came to the hospital by ambulance yesterday at 7:25 AM EMS flow sheet not available in the chart. Patient's vitals on arrival blood pressure 142/65, pulse rate 90 temperature 98.0. Her most recent blood pressure is 91/53. Blood test shows normal CBC, INR is 1.5, PTT 25.8. Sodium 150 potassium 2.0, BUN 37 and creatinine 0.78. Hepatic panel is normal, troponin negative. UA shows moderate amount of leukocyte Estrace. Patient's potassium continues to be low, most recent 2.5. Renal functions are normal. CT head revealed no acute intracranial process. Nonspecific white matter changes, likely secondary to chronic small vessel ischemic disease. EKG shows sinus rhythm with occasional ventricular premature complexes. Chest x-ray revealed development of small left pleural effusion with adjacent patchy air space opacity which may represent atelectasis and/or infiltrate. 2-D echo 05/27/2022 revealed normal left-ventricular systolic function with EF 55-60%. Mild left ventricular hypertrophy. Mild pulmonary hypertension. Aortic sclerosis with mild aortic stenosis and severe aortic insufficiency. Home medications include metoprolol 25 mg twice a day, multivitamin, daptomycin 500 mg every 24 hours, metronidazole, cefepime, oxycodone, Bumex, magnesium, nystatin. 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 Mother Additional Family Medical History / Comment(s): Mother had cancer in 4 sites unknown primary. Brother(s) Additional Family Medical History / Comment(s): Patient's 1 brother diagnosed with colon cancer at age 15. One brother after having her bowel surgery due to a blood clot. Patient has one son with genetic mutations for familial polycythemia. Medications and Allergies Home Medications Medication Instructions Recorded Confirmed Type Metoprolol Tartrate [Lopressor] 25 mg PO BID 03/03/22 05/31/22 History Multivitamins, Thera [Multivitamin 1 tab PO DIRECTED 03/03/22 05/31/22 History (formulary)] Ondansetron [Zofran] 4 mg PO Q12HR PRN 03/03/22 05/31/22 History Mylanta 30 ml PO Q3H PRN 05/26/22 05/31/22 History Collagenase [Santyl Ointment] 1 applic TOPICAL DAILY 05/31/22 05/31/22 History Dakin's Solution 0.25% 1 applic TOPICAL TUTHSA 05/31/22 05/31/22 History Magnesium Hydroxide [Milk of 1,200 mg PO DAILY PRN 05/31/22 05/31/22 History Magnesia] Nystatin [Nystatin Oral Susp] 500,000 unit PO QID 05/31/22 05/31/22 History oxyCODONE HCL [OxyIR] 5 mg PO Q6H PRN 05/31/22 05/31/22 History Allergies Allergy/AdvReac Type Severity Reaction Status Date / Time montelukast [From Singulair] Allergy Diarrhea Verified 05/31/22 07:49 acetaminophen [From Tylenol] AdvReac Abdominal Verified 05/31/22 07:49 Pain amoxicillin AdvReac Unknown Verified 05/31/22 07:49 Physical Examination - Vital Signs Vital Signs: Vital Signs Pulse Resp BP Pulse Ox 06/01/22 10:45 93/40 06/01/22 10:38 96 68/36 100 06/01/22 08:00 80 18 96/36 100 06/01/22 07:32 81 16 91/53 100 06/01/22 06:30 83 14 101/44 100 06/01/22 05:00 84 16 93/56 100 06/01/22 04:00 77 15 99/55 100 06/01/22 03:00 76 16 102/51 100 06/01/22 02:00 87 15 111/55 100 06/01/22 01:00 89 21 106/56 100 06/01/22 00:00 84 20 108/50 100 05/31/22 23:30 90 23 108/50 100 05/31/22 23:00 90 20 115/49 100 05/31/22 22:30 92 20 115/49 100 05/31/22 22:00 93 19 111/51 100 05/31/22 21:30 93 20 116/55 100 05/31/22 21:15 92 16 116/52 100 05/31/22 21:00 94 17 112/55 100 05/31/22 20:00 98 31 H 110/52 100 05/31/22 19:03 98 24 110/49 100 05/31/22 19:00 97 12 105/49 100 05/31/22 18:40 105/46 05/31/22 18:30 94/46 05/31/22 18:25 70/50 05/31/22 18:00 98 H 105/54 100 05/31/22 17:23 105/54 05/31/22 17:00 75 15 118/51 100 05/31/22 16:00 86 14 105/49 100 05/31/22 15:00 82 16 123/45 100 05/31/22 14:00 90 16 125/65 100 05/31/22 13:00 90 15 136/52 100 05/31/22 12:00 80 17 134/52 100 Results - Laboratory Findings CBC and BMP: 06/01/22 04:43 06/01/22 04:58 Abnormal Lab Findings: Abnormal Labs 05/31/22 05/31/22 05/31/22 08:09 08:09 08:09 RBC Hgb Hct RDW 17.4 H Plt Count 115 L Immature Gran # Neutrophils # 8.9 H Lymphocytes # 0.7 L Eosinophils # PT 15.2 H INR 1.5 H Sodium Potassium Chloride Carbon Dioxide Anion Gap BUN BUN/Creatinine Ratio Glucose POC Glucose (mg/dL) Calcium Magnesium Alkaline Phosphatase Total Protein Albumin Albumin/Globulin Ratio Urine Appearance Cloudy H Urine Protein Trace H Urine Blood Small H Ur Leukocyte Esterase Moderate H Urine WBC 11 H Urine Mucus Rare H Urine Yeast (Budding) Many H 05/31/22 05/31/22 05/31/22 08:09 18:09 18:33 RBC Hgb Hct RDW Plt Count Immature Gran # Neutrophils # Lymphocytes # Eosinophils # PT INR Sodium 150 H 149 H Potassium 2.0 L* 2.4 L* Chloride 122 H 125 H Carbon Dioxide 18 L 18 L Anion Gap BUN 37 H BUN/Creatinine Ratio Glucose 107 H POC Glucose (mg/dL) 118 H Calcium 8.1 L Magnesium Alkaline Phosphatase 230 H Total Protein 4.8 L Albumin 2.2 L Albumin/Globulin Ratio Urine Appearance Urine Protein Urine Blood Ur Leukocyte Esterase Urine WBC Urine Mucus Urine Yeast (Budding) 06/01/22 06/01/22 04:43 04:58 RBC 4.05 L Hgb 11.9 L Hct 37.0 L RDW 19.9 H Plt Count 126 L Immature Gran # 0.08 H Neutrophils # Lymphocytes # Eosinophils # 0.01 L PT INR Sodium 151 H Potassium 2.5 L* Chloride 124 H Carbon Dioxide 17.9 L Anion Gap 9.10 L BUN 29.7 H BUN/Creatinine Ratio 42.43 H Glucose 144 H POC Glucose (mg/dL) Calcium 8.0 L Magnesium 1.4 L Alkaline Phosphatase 197 H Total Protein 4.3 L Albumin 2.1 L Albumin/Globulin Ratio 0.95 L Urine Appearance Urine Protein Urine Blood Ur Leukocyte Esterase Urine WBC Urine Mucus Urine Yeast (Budding) Assessment and Plan Plan: Came to see the patient for consultation. EEG was also ordered. Apparently patient's family have decided [facility], and patient is being discharged on hospice care. Consult canceled.
[2022-06-01 17:25] VITALS: BP 86/43; PULSE 95; RESP 20
--- NOTE | 2022-06-01 19:01 | P.CONS ---
History of Present Illness - Reason for Consult Consult date: 06/01/22 Sacral pressure ulcer Requesting physician: Moisés Koenig - Chief Complaint Weakness and mental status changes x one daily - History of Present Illness Patient is a 71-year-old female with a past medical history significant for stage IV sacral pressure ulcer with underlying osteomyelitis who was recently admitted at this facility and has been diagnosed with a sacral osteomyelitis culture positive for VRE Proteus and Pseudomonas aeruginosa patient did get a PICC line and was advised a 6-week course of IV cefepime daptomycin and Flagyl patient was [facility] back to [facility] from which the patient was sent back to the ER yesterday morning for evaluation of mental status changes and apparently the patient was noticed to be more lethargic and not responding to the staff on presentation to the hospital patient was afebrile and no fever has been recorded patient did have a normal white count BUN was mildly elevated creatinine was normal she also have a low potassium of 2.0 liver exams are normal urine was positive patient did have a chest x-ray development of small left effusion adjacent patchy airspace disease CT of the brain was negative for any bleed patient was continued on cefepime daptomycin and Flagyl infectious he was consulted for further management of antibiotic to be patient time evaluation is sleepy and could not provide any history did not answer any question son was at the bedside most information has been obtained from review the chart Review of Systems Positive points has been mentioned in HPI complete review could not be obtained because of his underlying mental status Past Medical History Past Medical History: Hypertension Additional Past Medical History / Comment(s): 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 Mother Additional Family Medical History / Comment(s): Mother had cancer in 4 sites unknown primary. Brother(s) Additional Family Medical History / Comment(s): Patient's 1 brother diagnosed with colon cancer at age 15. One brother after having her bowel surgery due to a blood clot. Patient has one son with genetic mutations for familial polycythemia. Medications and Allergies Home Medications Medication Instructions Recorded Confirmed Type Metoprolol Tartrate [Lopressor] 25 mg PO BID 03/03/22 05/31/22 History Multivitamins, Thera [Multivitamin 1 tab PO DIRECTED 03/03/22 05/31/22 History (formulary)] Ondansetron [Zofran] 4 mg PO Q12HR PRN 03/03/22 05/31/22 History Mylanta 30 ml PO Q3H PRN 05/26/22 05/31/22 History Collagenase [Santyl Ointment] 1 applic TOPICAL DAILY 05/31/22 05/31/22 History Dakin's Solution 0.25% 1 applic TOPICAL TUTHSA 05/31/22 05/31/22 History Magnesium Hydroxide [Milk of 1,200 mg PO DAILY PRN 05/31/22 05/31/22 History Magnesia] Nystatin [Nystatin Oral Susp] 500,000 unit PO QID 05/31/22 05/31/22 History oxyCODONE HCL [OxyIR] 5 mg PO Q6H PRN 05/31/22 05/31/22 History Allergies Allergy/AdvReac Type Severity Reaction Status Date / Time montelukast [From Singulair] Allergy Diarrhea Verified 05/31/22 07:49 acetaminophen [From Tylenol] AdvReac Abdominal Verified 05/31/22 07:49 Pain amoxicillin AdvReac Unknown Verified 05/31/22 07:49 Physical Exam Vitals: Vital Signs Pulse Resp BP Pulse Ox 06/01/22 10:45 93/40 06/01/22 10:38 96 68/36 100 06/01/22 08:00 80 18 96/36 100 06/01/22 07:32 81 16 91/53 100 06/01/22 06:30 83 14 101/44 100 06/01/22 05:00 84 16 93/56 100 06/01/22 04:00 77 15 99/55 100 06/01/22 03:00 76 16 102/51 100 06/01/22 02:00 87 15 111/55 100 06/01/22 01:00 89 21 106/56 100 06/01/22 00:00 84 20 108/50 100 05/31/22 23:30 90 23 108/50 100 03/21/23 23:00 90 20 115/49 100 05/31/22 22:30 92 20 115/49 100 05/31/22 22:00 93 19 111/51 100 05/31/22 21:30 93 20 116/55 100 05/31/22 21:15 92 16 116/52 100 05/31/22 21:00 94 17 112/55 100 05/31/22 20:00 98 31 H 110/52 100 05/31/22 19:03 98 24 110/49 100 05/31/22 19:00 97 12 105/49 100 05/31/22 18:40 105/46 05/31/22 18:30 94/46 05/31/22 18:25 70/50 05/31/22 18:00 98 H 105/54 100 05/31/22 17:23 105/54 05/31/22 17:00 75 15 118/51 100 05/31/22 16:00 86 14 105/49 100 05/31/22 15:00 82 16 123/45 100 05/31/22 14:00 90 16 125/65 100 05/31/22 13:00 90 15 136/52 100 05/31/22 12:00 80 17 134/52 100 GENERAL DESCRIPTION: Elderly female lying in bed, no distress. No tachypnea or accessory muscle of respiration use. HEENT: Shows Pallor , no scleral icterus. Oral mucous membrane is dry. NECK: Trachea central, no thyromegaly. LUNGS: Unlabored breathing. Decreased breath sounds at the base HEART: S1, S2, regular rate and rhythm. No loud murmur ABDOMEN: Soft, no tenderness , guarding or rigidity, no organomegaly EXTREMITIES: Diffuse swelling to lower extremity SKIN: No rash, no masses palpable. NEUROLOGICAL: The patient is lethargic but arousable mood and affect could not be determined Results CBC & Chem 7: 06/01/22 04:43 06/01/22 04:58 Labs: Abnormal Lab Results - Last 24 Hours (Table) 05/31/22 05/31/22 06/01/22 Range/Units 18:09 18:33 04:43 RBC 4.05 L (4.10-5.20) X 10*6/uL Hgb 11.9 L (12.0-15.0) g/dL Hct 37.0 L (37.2-46.3) % RDW 19.9 H (11.5-14.5) % Plt Count 126 L (140-440) X 10*3/uL Immature Gran # 0.08 H (0.00-0.04) X 10*3/uL Eosinophils # 0.01 L (0.04-0.35) X 10*3/uL Sodium 149 H (137-145) mmol/L Potassium 2.4 L* (3.5-5.1) mmol/L Chloride 125 H (98-107) mmol/L Carbon Dioxide 18 L (22-30) mmol/L Anion Gap (10.00-18.00) mmol/L BUN (9.0-27.0) mg/dL BUN/Creatinine Ratio (12.00-20.00) Ratio Glucose (70-110) mg/dL POC Glucose (mg/dL) 118 H (70-110) mg/dL Calcium (8.7-10.3) mg/dL Magnesium (1.5-2.4) mg/dL Alkaline Phosphatase (41-126) U/L Total Protein (6.2-8.2) g/dL Albumin (3.8-4.9) g/dL Albumin/Globulin Ratio (1.60-3.17) g/dL 06/01/22 Range/Units 04:58 RBC (4.10-5.20) X 10*6/uL Hgb (12.0-15.0) g/dL Hct (37.2-46.3) % RDW (11.5-14.5) % Plt Count (140-440) X 10*3/uL Immature Gran # (0.00-0.04) X 10*3/uL Eosinophils # (0.04-0.35) X 10*3/uL Sodium 151 H (137-145) mmol/L Potassium 2.5 L* (3.5-5.1) mmol/L Chloride 124 H (98-107) mmol/L Carbon Dioxide 17.9 L (22-30) mmol/L Anion Gap 9.10 L (10.00-18.00) mmol/L BUN 29.7 H (9.0-27.0) mg/dL BUN/Creatinine Ratio 42.43 H (12.00-20.00) Ratio Glucose 144 H (70-110) mg/dL POC Glucose (mg/dL) (70-110) mg/dL Calcium 8.0 L (8.7-10.3) mg/dL Magnesium 1.4 L (1.5-2.4) mg/dL Alkaline Phosphatase 197 H (41-126) U/L Total Protein 4.3 L (6.2-8.2) g/dL Albumin 2.1 L (3.8-4.9) g/dL Albumin/Globulin Ratio 0.95 L (1.60-3.17) g/dL Microbiology - Last 24 Hours (Table) 05/31/22 08:09 Urine Culture - Preliminary Urine,Voided Assessment and Plan (1) Sacral osteomyelitis Status: Acute Code(s): M46.28 - OSTEOMYELITIS OF VERTEBRA, SACRAL AND SACROCOCCYGEAL REGION SNOMED Code(s): 970379436 Plan: 1patient with a stage IV sacral pressure ulcer with underlying osteomyelitis culture positive for VRE Pseudomonas and Proteus patient now presenting back to the hospital with mental status changes patient did not have any fever or elevated white count possible metabolic 2-we will continue the patient on daptomycin cefepime and Flagyl 3-local wound care with a wound VAC Possible hospice may be appropriate for this patient son was at the bedside question concerns were answered We will follow on clinical condition and cultures to further adjust medication if needed Thank you for this consultation we will follow the patient along with you Time with Patient: Greater than 30
== END 2022-06-01 19:16 | DRG 539 ==
LOC: EC 07:25 → 4SSUR 10:22
PROVIDERS: ADMIT Internal Medicine; ATTEND Internal Medicine
DX: M46.28 Osteomyelitis of vertebra, sacral and sacrococcygeal region (principal); G93.41 Metabolic encephalopathy; E87.0 Hyperosmolality and hypernatremia; Z79.899 Other long term (current) drug therapy; I70.0 Atherosclerosis of aorta; D75.1 Secondary polycythemia; I27.20 Pulmonary hypertension, unspecified; I10 Essential (primary) hypertension; E87.6 Hypokalemia; Z87.11 Personal history of peptic ulcer disease; Z88.6 Allergy status to analgesic agent; Z88.1 Allergy status to other antibiotic agents; Z88.8 Allergy status to other drugs, medicaments and biological substances
CPT/HCPCS: 36415; 51702; 70450; 71045; 80051; 80053; 81001; 83735; 84484; 85025; 85610; 85730; 87086; 93005; 96365; 96366; 96367; 96368; 99285